=== PATIENT | female | born 1940 | race Caucasian/White ===

== ENCOUNTER 2024-12-24 17:35 | Outpatient (CLI) | payer MEDICARE, BC, SELFPAY | END 2024-12-24 17:36 | disposition home or self-care (01) | LOC: AMB 01-21 11:52 | PROVIDERS: PCP Family Medicine; Visit Provider Family Medicine | DX: R06.09 Other forms of dyspnea (principal) | CPT/HCPCS: A0425; A0427 ==

== ENCOUNTER 2024-12-24 18:07 | Inpatient (IN) | payer MEDICARE, BC, SELFPAY ==
[2024-12-24] VITALS (14 sets, daily range): BP systolic 123–170; BP diastolic 65–79; PULSE 60–79; RESP 21–27; TEMP 37.2; O2SAT 85–94; BMI 33.9; BMI 41.8
[2024-12-24 19:04] LABS: PCR FLU A Negative PCR FLU A (Negative); PCR FLU B Negative PCR FLU B (Negative); PCR RSV Negative PCR RSV (Negative); SARS PCR* Negative SARS-CoV-2 (Negative)
[2024-12-24 19:10] LABS: Basophils Percent Auto 0.2 % (0.0-3.0); Eosinophils Percent Auto 0.2 % (0.0-7.0); Hematocrit 41.9 % (33.0-51.0); Hemoglobin* 13.5 gm/dL (12.0-16.0); Immature Granulocytes Pct Auto 0.2 %; Lymphocytes Percent Auto 9.2 % (20-44); Mean Corpuscular HGB Conc 32 gm/dL (32-36); Mean Corpuscular Hemoglobin 31 pg (26-34); Mean Corpuscular Volume 95 fL (80-100); Monocytes Percent Auto 7.2 % (0.0-11.0); Platelet Count* 190 K/uL (140-440); Red Blood Count 4.39 m/uL (4.00-5.20); White Blood Count* 12.22 K/uL (4.50-11.00)
[2024-12-24 19:11] LABS: Slide Review Reflex No
--- NOTE | 2024-12-24 19:19 | ED_ITS ---
HPI - SOB/Dyspnea General Date Seen: 12/24/24 Chief Complaint: Shortness of Breath/Dyspnea Stated Complaint: COPD exacerbation Time Seen by Provider: 12/24/24 18:10 Source: patient, family and EMS Mode of arrival: EMS Limitations: no limitations History of Present Illness HPI Narrative: Patient is an 84-year-old female presenting from [facility] for shortness of breath and weakness. Patient has been having increased shortness of breath and weakness starting this morning. Her family states they visit her yesterday and noticed she seemed more short of breath at that time too. Symptoms were not improving so EMS was called. EMS states when they arrive she was satting in the 80s on room air. Her family states in the past she used oxygen at home but has not needed now for almost a year. She does have it p.r.n. patient does states she feels overall weak and crappy. Denies any fevers or chills. Has not noticed any abdominal pain. No history of blood clots that she is aware of. Does have history of heart failure. Has not noticed any lower extremity swelling. She does have some erythema in her lower legs that her family states is chronic and does not appear any different than normal. Has not noticed any dysuria, chest pain. EMS states she is very wheezy for them and they did give her breathing treatments. She is not feel like they help. Family states she was hospitalized 1 month ago for a viral infection and after that had to be moved from her home to the intermediate. No other concerns noted Related Data Home Medications ?Medication ?Instructions ?Recorded ?Confirmed Unobtainable 12/24/24 12/24/24 Allergies Allergy/AdvReac Type Severity Reaction Status Date / Time No Known Drug Allergies Allergy Verified 12/24/24 20:24 Review of Systems Status of ROS: Reports: 10 or more systems reviewed and unremarkable except as noted in History and below [facility] Social History Smoking Status: Former smoker How often do you have a drink containing alcohol: never How often do you have six or more drinks on one occasion: Never AUDIT-C Alcohol total score: 0 Non-prescribed substance use: denies use Exam Narrative: Exam Narrative: Const: Well-nourished, Well-developed, in mild distress Eyes: PERRL, no conjunctival injection, and symmetrical lids HENT: Atraumatic external nose and ears. Moist mucous membranes. Neck: Symmetric, trachea midline, No thyromegaly. CVS: RRR, No murmurs or gallops. Peripheral pulses 2+ and equal in all extremities RESP: Unlabored respiratory effort. Clear to auscultation bilaterally. GI: Nontender/Nondistended, No rebound or guarding. MSK:Extremities w/o deformity, Normal Active ROM Skin: Warm, Dry. Erythema to bilateral lower legs just proximal to the ankles with warmth, worse on the left Neuro: Normal Muscle tone, No focal neurological deficits. Psych: Awake, Alert, & Oriented x3. Appropriate mood and affect. Const: Vital Signs, click to edit/add: Vital Signs - 24 hr 12/24/24 18:10 12/24/24 18:19 12/24/24 19:20 Temperature 98.9 F Pulse Rate 60 Pulse Rate [Pulse Oximeter] 73 Respiratory Rate 24 26 H Blood Pressure 135/79 Blood Pressure [Ri ght Upper Arm] 123/73 Pulse Oximetry 85 L 91 94 Oxygen Delivery Me thod Room Air Nasal Cannula Nasal Cannula Oxygen Flow Rate 2 2 12/24/24 20:11 Temperature Pulse Rate 60 Pulse Rate [Pulse Oximeter] Respiratory Rate 24 Blood Pressure 149/65 H Blood Pressure [Ri ght Upper Arm] Pulse Oximetry 91 Oxygen Delivery Me thod Nasal Cannula Oxygen Flow Rate 1 Course Vital Signs Vital signs: Initial Vital Signs Temperature 98.9 F 12/24/24 18:10 Temperature Source Oral 12/24/24 18:10 Pulse Rate 73 12/24/24 18:10 Respiratory Rate 24 12/24/24 18:10 Blood Pressure 123/73 12/24/24 18:10 Blood Pressure Mean 89 12/24/24 18:10 Pulse Oximetry 85 L 12/24/24 18:10 Oxygen Delivery Method Room Air 12/24/24 18:10 Vital Signs Temperature 98.9 F 12/24/24 18:10 Pulse Rate 73 12/24/24 18:10 Respiratory Rate 24 12/24/24 18:10 Blood Pressure 123/73 12/24/24 18:10 Pulse Oximetry 85 L 12/24/24 18:10 Oxygen Delivery Method Room Air 12/24/24 18:10 Temperature 98.9 F 12/24/24 18:10 Pulse Rate 60 12/24/24 20:11 Respiratory Rate 24 12/24/24 20:11 Blood Pressure 149/65 H 12/24/24 20:11 Pulse Oximetry 91 12/24/24 20:11 Oxygen Delivery Method Nasal Cannula 12/24/24 20:11 Oxygen Flow Rate 1 12/24/24 20:11 MDM - SOB/Dyspnea MDM Narrative Medical decision making narrative: Patient is an 84-year-old female presenting for shortness of breath and weakness. The differential diagnosis of shortness of breath is broad and includes common etiologies such as COPD, asthma, pneumonia, viral syndrome, etc. More serious etiologies considered include PE, CHF, coronary artery disease, pneumothorax, aortic dissection, aortic aneurysm. I do not hear any wheezing on my exam at this time. She is satting 90-96% on 2 L nasal cannula. Do not believe further breathing treatments will be beneficial at this time. Will do a D-dimer to look for signs of PE. Will order BNP for possible CHF exacerbation. EKG and troponin order to look for signs of coronary artery disease. At this time I have low concern for aortic dissection or aortic aneurysm. Imaging will also look for signs of pneumonia or pneumothorax. For her weakness I will look for signs of infection, electrolyte abnormalities. CBC, CMP, magnesium, urinalysis all ordered. Lab work shows a very slightly elevated white count at 12.22. She does not meet SIRS criteria. She has an elevated D-dimer and a CTA was ordered. Troponin within normal limits. BNP is 5760. I see no other clinical signs of CHF exacerbation. EKG shows a ventricular paced rhythm. Urinalysis shows no signs of a UTI. Viral swabs are negative. CTA returned showing her known breast cancer with possible pulmonary metastasis in the left lower low. He off oxygen she was satting 88% on room air which for COPD patients can be normal. She is satting 91% on 1 L. I did not speak to her and her family about admission for under observation versus discharge. I explained that we do not see any clear causes of her weakness and might be a viral issue. Are likely management in the hospital when not be much different than what she would have done at her intermediate. They would like her to stay at least overnight. Hospitalist will accept. Lab Data Labs: Lab Results 02/24/25 02/24/25 02/24/25 Range/Units 18:13 19:00 20:24 WBC 12.22 H (4.50-11.00) K/uL RBC 4.39 (4.00-5.20) m/uL Hgb 13.5 (12.0-16.0) gm/dL Hct 41.9 (33.0-51.0) % MCV 95 (80-100) fL MCH 31 (26-34) pg MCHC 32 (32-36) gm/dL RDW Coeff of Jarrett 16.0 H (11.5-15.5) % Plt Count 190 (140-440) K/uL Neut % (Auto) 83.0 H (42.0-72.0) % Lymph % (Auto) 9.2 L (20-44) % [place] % (Auto) 7.2 (0.0-11.0) % Eos % (Auto) 0.2 (0.0-7.0) % Baso % (Auto) 0.2 (0.0-3.0) % Neut # (Auto) 10.10 H (1.7-7.0) K/uL Lymph # (Auto) 1.10 (0.90-2.90) K/uL [place] # (Auto) 0.90 (0.00-0.90) K/UL Eos # (Auto) 0.00 (0.00-0.50) K/uL Baso # (Auto) 0.00 (0.00-0.30) K/uL Abs Immat Gran (auto) 0.00 (0.00-0.30) K/uL Imm/Tot Granulo (auto) 0.2 % D-Dimer Quant (PE/DVT) 0.96 H (0.00-0.50) ug/ml Sodium 140 (135-149) mmol/L Potassium 4.3 (3.6-5.1) mmol/L Chloride 99 (96-114) mmol/L Carbon Dioxide 32 (20-32) mmol/L Anion Gap 9 (7-15) mEq/L BUN 24 (7-30) mg/dL Creatinine 1.1 (0.5-1.5) mg/dL Estimated Creat Clear 35.00 Estimated GFR 49 ml/min Glucose 164 H (60-115) mg/dL Calcium 9.0 (8.4-10.6) mg/dL Magnesium 2.1 (1.5-2.6) mg/dL Total Bilirubin 1.5 (0.1-1.5) mg/dL AST 35 (12-35) U/L ALT 23 (4-35) U/L Alkaline Phosphatase 78 (40-150) U/L Troponin I 0.02 (0.01-0.04) ng/mL NT-Pro-B Natriuret Pep 5760 pg/mL Total Protein 6.9 (6.0-8.3) g/dL Albumin 4.0 (3.3-5.0) g/dL Urine Color Yellow (Yellow) Urine Appearance Clear (Clear) Urine pH 6.0 (5.0-8.5) Ur Specific [place] 1.010 (1.000-1.030) Urine Protein Negative (Negative) Urine Glucose (UA) Negative (Negative) Urine Ketones Negative (Negative) Urine Blood Negative (Negative) Urine Nitrite Negative (Negative) Urine Bilirubin Negative (Negative) Urine Urobilinogen 0.2 (0.2-1.0) Ur Leukocyte Esterase Trace A (Negative) Urine RBC 2-5 A (0-2) Urine WBC 2-5 (0-5) Ur Squamous Epith Cells Few (None-Few) Urine Bacteria Few A (None) SARS-CoV-2 (PCR) Negative SARS-CoV-2 (Negative) Influenza Type A (PCR) Negative PCR FLU A (Negative) Influenza Type B (PCR) Negative PCR FLU B (Negative) RSV (PCR) Negative PCR RSV (Negative) Imaging Data CTA chest: Attestation: I have reviewed the pertinent imaging results. Radiologist's impression: 1. Motion degrades evaluation of the distal segmental and subsegmental pulmonary arteries. No discrete large central or proximal segmental pulmonary embolus. 2. Left breast mass measuring 48 millimeters. Associated left axillary lymphadenopathy. Constellation of findings are highly concerning for primary breast cancer with associated metastatic disease. 3. 8 millimeter left lower lobe indeterminate pulmonary nodule. Differential considerations include solitary pulmonary metastasis, synchronous primary lung cancer, versus other benign etiologies. Attention on follow up exams per clinical protocol or in 3 months to document stability and to assess underlying malignant potential. Please note that all CT scans at this facility use dose modulation, iterative reconstruction, and/or weight-based dosing when appropriate to reduce radiation dose to as low as reasonably achievable. Dictated by Jacoby Solorzano MD @ 12/24/2024 9:24:21 PM ECG Data Attestation: I personally reviewed and interpreted this ECG as follows: Prior ECG tracings: not available for review Interpretation: ventricular paced rhythm with a rate of 61 beats per minute, normal QRS and QTC, normal axis, no ST or T-wave abnormalities Discharge Plan Discharge Clinical Impression: Weakness Patient Disposition: Admitted As Observation Condition: Stable Prescriptions: No Action Unobtainable Follow Up/Referrals: Johnathan Lopez MD [Primary Care Provider] -
[2024-12-24 19:23] LABS: Chloride* 99 mmol/L (96-114); Potassium* 4.3 mmol/L (3.6-5.1); Sodium* 140 mmol/L (135-149)
[2024-12-24 19:25] LABS: Bilirubin Total* 1.5 mg/dL (0.1-1.5); Creatinine* 1.1 mg/dL (0.5-1.5); Estimated Glomerular Filt Rate 49 ml/min
[2024-12-24 19:26] LABS: Alanine Aminotransferase* 23 U/L (4-35); Alkaline Phosphatase* 78 U/L (40-150); Anion Gap 9 mEq/L (7-15); Aspartate Amino Transferase* 35 U/L (12-35); Blood Urea Nitrogen* 24 mg/dL (7-30); Carbon Dioxide* 32 mmol/L (20-32); Glucose* 164 mg/dL (60-115); Magnesium* 2.1 mg/dL (1.5-2.6); Total Protein* 6.9 g/dL (6.0-8.3)
[2024-12-24 19:30] LABS: D Dimer Quantitative* 0.96 ug/ml (0.00-0.50)
[2024-12-24 19:38] LABS: Troponin I* 0.02 ng/mL (0.01-0.04)
[2024-12-24 19:45] LABS: NT Pro B Type NatriureticPept* 5760 pg/mL
--- NOTE | 2024-12-24 19:55 | CRLHL7_ITS ---
For Patients: As a result of the 21st Century Cures Act, medical imaging exams and procedure reports are released immediately into your electronic medical record. You may view this report before your referring provider. If you have questions, please contact your health care provider. INDICATION: .SOB TECHNIQUE: CT chest PE was acquired with 95 cc Isovue 370 IV contrast. COMPARISON: None FINDINGS: Pulmonary Arteries: Motion degrades evaluation of the distal segmental and subsegmental pulmonary arteries. No discrete large central or proximal segmental pulmonary embolus. No pulmonary hypertension or right ventricular strain. Heart and Mediastinum: Left axillary enlarged lymph nodes measuring up to 18 millimeters. No axillary or supraclavicular lymphadenopathy. No mediastinal, hilar or retrocrural lymphadenopathy. Cardiomegaly. 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 TAVR. Normal caliber aorta. Atherosclerotic calcifications. Coronary artery calcifications. Lungs and Airways: Dependent subsegmental atelectasis. Upper lobe predominant centrilobular emphysema. 8 millimeter left lower lobe indeterminate pulmonary nodule, axial image 77. No central endoluminal lesion. Pleura: The pleural spaces are normal. Abdomen: Tiny epiphrenic diverticulum. Relatively atrophic left kidney where visualized compared to the right. Bones and soft tissues: Left breast mass measuring 48 millimeters. IMPRESSION: 1. Motion degrades evaluation of the distal segmental and subsegmental pulmonary arteries. No discrete large central or proximal segmental pulmonary embolus. 2. Left breast mass measuring 48 millimeters. Associated left axillary lymphadenopathy. Constellation of findings are highly concerning for primary breast cancer with associated metastatic disease. 3. 8 millimeter left lower lobe indeterminate pulmonary nodule. Differential considerations include solitary pulmonary metastasis, synchronous primary lung cancer, versus other benign etiologies. Attention on follow up exams per clinical protocol or in 3 months to document stability and to assess underlying malignant potential. Please note that all CT scans at this facility use dose modulation, iterative reconstruction, and/or weight-based dosing when appropriate to reduce radiation dose to as low as reasonably achievable. Dictated by Jacoby Solorzano MD @ 12/24/2024 9:24:21 PM (Electronically Signed)
[2024-12-24 20:33] LABS: Appearance Urine Clear (Clear); Bilirubin Urine Negative (Negative); Blood Urine Negative (Negative); Color Urine Yellow (Yellow); Glucose Urine Negative (Negative); Ketones Urine Negative (Negative); Leukocyte Esterase Urine Trace (Negative); Nitrite Urine Negative (Negative); Protein Urine Negative (Negative); Urobilinogen Urine 0.2 (0.2-1.0)
[2024-12-24 21:01] LABS: Bacteria Urine Few; Squamous Epithelial Cell Urine Few (None-Few)
--- NOTE | 2024-12-24 21:47 | PM.IMHP1 ---
Hospitalist- H&P: HPI History of Present Illness Date Seen: 12/24/24 Chief complaint: COPD exacerbation Narrative: Sofi Martinez is a 84 year old female resident of [address] [place] [address] admitted through the emergency department with weakness, nausea, loss of appetite, dyspnea. These are all chronic symptoms for her but have been much worse in the last 1-2 days. She was hospitalized in [place] 1 month ago with similar symptoms although that time she appeared to have a viral gastroenteritis as well. She reports she was generally doing well until yesterday when she started having worsening nausea and anorexia and today where she was quite short of breath and quite weak. She has not had cold or cough symptoms. No chest pain or abdominal pain. No vomiting. No diarrhea or urinary symptoms. She is not aware of any fever. Prior to her hospitalization in October she was living independently at home but there were concerns about her ability to care for herself and she subsequently has been at [address] [place] [address]. [facility] Medical History (Updated 12/24/24 @ 22:15 by Carlitos Kent MD) Cognitive impairment ?R41.89 - Other symptoms and signs involving cognitive functions and awareness (ICD-10) Pancreatic cyst ?K86.2 - Cyst of pancreas (ICD-10) Lung nodule ?R91.1 - Solitary pulmonary nodule (ICD-10) Elevated liver transaminase level ?R74.01 - Elevation of levels of liver transaminase levels (ICD-10) Rhabdomyolysis ?M62.82 - Rhabdomyolysis (ICD-10) Breast cancer ?C50.919 - Malignant neoplasm of unspecified site of unspecified female breast (ICD-10) Obesity ?E66.9 - Obesity, unspecified (ICD-10) Heart failure with preserved ejection fraction ?I50.30 - Unspecified diastolic (congestive) heart failure (ICD-10) History of cardiac pacemaker ?Z95.0 - Presence of cardiac pacemaker (ICD-10) Sleep apnea ?G47.30 - Sleep apnea, unspecified (ICD-10) Paroxysmal atrial fibrillation ?I48.0 - Paroxysmal atrial fibrillation (ICD-10) Chronic anticoagulation ?Z79.01 - lobsterman (current) use of anticoagulants (ICD-10) Hypertension ?I10 - Essential (primary) hypertension (ICD-10) Stage 3 chronic kidney disease ?N18.30 - Chronic kidney disease, stage 3 unspecified (ICD-10) COPD exacerbation ?J44.1 - Chronic obstructive pulmonary disease with (acute) exacerbation (ICD-10) Surgical History (Updated 12/24/24 @ 21:55 by Carlitos Kent MD) S/p total knee replacement, bilateral ?Z96.653 - Presence of artificial knee joint, bilateral (ICD-10) S/P oophorectomy History of aortic valve replacement with bioprosthetic valve ?Z95.3 - Presence of xenogenic heart valve (ICD-10) Social History (Updated 12/24/24 @ 22:09 by Carlitos Kent MD) Narrative: Until last month she was living independently at home. Then hospitalized with weakness and multiple other medical problems. Now at [address] [place] [address]. She is present here with her son, Kenneth, and [id number]. Kenneth is healthcare power of deputy attorney general. Code status is DNR. Former smoker having quit about 40 years ago. Previously drank alcohol regularly but not currently drinking Smoking Status: Former smoker How often do you have a drink containing alcohol: never How often do you have six or more drinks on one occasion: Never AUDIT-C Alcohol total score: 0 Non-prescribed substance use: denies use Meds Home Medications and Allergies Home Medications ?Medication ?Instructions ?Recorded ?Confirmed ?Type Unobtainable 12/24/24 12/24/24 History Allergies Allergy/AdvReac Type Severity Reaction Status Date / Time No Known Drug Allergies Allergy Verified 12/24/24 20:24 Exam Narrative: Exam Narrative: She is alert and appears mildly dyspneic at rest with oxygen. She gives her own history although is quite forgetful, unable to remember much detail about the events of the last 2 days or her hospitalization from 1 month ago. Speech is fluent. Head is without trauma. Eyes are normal. Extraocular movements are full. Oropharynx with small airway. Neck is supple without mass or adenopathy. Respirations: No significant rales rhonchi or wheezing. She has moderately diminished breath sounds and moderately prolonged expiratory phase. Cardiovascular: S1, S2, regular rate and rhythm. Abdomen: Bowel sounds are active. Abdomen is soft without tenderness or mass. She has mild intertriginous erythema in the groin area. She moves all 4 extremities well. She has diminished pedal pulses. She has moderate chronic venous skin changes on her legs without erythema or ulcerations. Const: Vital Signs, click to edit/add: Vital Signs - 24 hr 12/24/24 18:10 12/24/24 18:19 12/24/24 19:20 Temperature 98.9 F Pulse Rate 60 Pulse Rate [Pulse Oximeter] 73 Respiratory Rate 24 26 H Blood Pressure 135/79 Blood Pressure [Ri ght Upper Arm] 123/73 Pulse Oximetry 85 L 91 94 Oxygen Delivery Me thod Room Air Nasal Cannula Nasal Cannula Oxygen Flow Rate 2 2 12/24/24 20:11 Temperature Pulse Rate 60 Pulse Rate [Pulse Oximeter] Respiratory Rate 24 Blood Pressure 149/65 H Blood Pressure [Ri ght Upper Arm] Pulse Oximetry 91 Oxygen Delivery Me thod Nasal Cannula Oxygen Flow Rate 1 Documenting provider has reviewed patient's vital signs: yes Hospitalist - H&P: Result Labs Labs: Short CBC 12/24/24 Range/Units 19:00 WBC 12.22 H (4.50-11.00) K/uL Hgb 13.5 (12.0-16.0) gm/dL Hct 41.9 (33.0-51.0) % Plt Count 190 (140-440) K/uL BMP 12/24/24 19:00 Sodium 140 Potassium 4.3 Chloride 99 Carbon Dioxide 32 BUN 24 Creatinine 1.1 Glucose 164 H Calcium 9.0 Cardiac Enzymes 12/24/24 Range/Units 19:00 Troponin I 0.02 (0.01-0.04) ng/mL Liver Function 12/24/24 Range/Units 19:00 Total Bilirubin 1.5 (0.1-1.5) mg/dL AST 35 (12-35) U/L ALT 23 (4-35) U/L Alkaline Phosphatase 78 (40-150) U/L Albumin 4.0 (3.3-5.0) g/dL Urine 12/24/24 Range/Units 20:24 Urine Color Yellow (Yellow) Urine Appearance Clear (Clear) Urine pH 6.0 (5.0-8.5) Ur Specific [place] 1.010 (1.000-1.030) Urine Protein Negative (Negative) Urine Glucose (UA) Negative (Negative) Imaging CT scan - chest: Radiologist's impression: INDICATION: .SOB TECHNIQUE: CT chest PE was acquired with 95 cc Isovue 370 IV contrast. COMPARISON: None FINDINGS: Pulmonary Arteries: Motion degrades evaluation of the distal segmental and subsegmental pulmonary arteries. No discrete large central or proximal segmental pulmonary embolus. No pulmonary hypertension or right ventricular strain. Heart and Mediastinum: Left axillary enlarged lymph nodes measuring up to 18 millimeters. No axillary or supraclavicular lymphadenopathy. No mediastinal, hilar or retrocrural lymphadenopathy. Cardiomegaly. 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 TAVR. Normal caliber aorta. Atherosclerotic calcifications. Coronary artery calcifications. Lungs and Airways: Dependent subsegmental atelectasis. Upper lobe predominant centrilobular emphysema. 8 millimeter left lower lobe indeterminate pulmonary nodule, axial image 77. No central endoluminal lesion. Pleura: The pleural spaces are normal. Abdomen: Tiny epiphrenic diverticulum. Relatively atrophic left kidney where visualized compared to the right. Bones and soft tissues: Left breast mass measuring 48 millimeters. IMPRESSION: 1. Motion degrades evaluation of the distal segmental and subsegmental pulmonary arteries. No discrete large central or proximal segmental pulmonary embolus. 2. Left breast mass measuring 48 millimeters. Associated left axillary lymphadenopathy. Constellation of findings are highly concerning for primary breast cancer with associated metastatic disease. 3. 8 millimeter left lower lobe indeterminate pulmonary nodule. Differential considerations include solitary pulmonary metastasis, synchronous primary lung cancer, versus other benign etiologies. Attention on follow up exams per clinical protocol or in 3 months to document stability and to assess underlying malignant potential. Assessment and Plan Assessment and plan (1) COPD exacerbation: Problem comment: COPD exacerbation is the most likely cause of her acute dyspnea, hypoxia and weakness. No obvious triggering infection. Status: Acute (2) Weakness: Problem comment: This appears to be acute on chronic. Multiple chronic medical problems likely contributing. Acute change may be related to COPD exacerbation. Other contributors include heart failure, obesity, deconditioning, possible breast cancer. Status: Acute (3) Hypoxia: Problem comment: Has been on oxygen in the past but not recently. Status: Acute (4) Nausea: Problem comment: Acute on chronic. Abdominal CT scan from 1 month ago in [place] is nondiagnostic. Status: Acute (5) Anorexia: Problem comment: Probably acute on chronic loss of appetite. Cause for this is uncertain. Unremarkable CT abdomen scan 1 month ago. Status: Acute (6) Breast cancer: Problem comment: Left breast mass diagnosed as breast cancer in October 2024. Patient has declined further evaluation or treatment. Likely metastatic to lymph nodes in the left axilla. Status: Acute (7) Elevated liver transaminase level: Problem comment: Present during her hospital admission 1 month ago. Cause is uncertain. Abdominal ultrasound was unremarkable. Abdominal CT was unremarkable. Status: Acute (8) Lung nodule: Problem comment: 8 mm left lower lobe indeterminate nodule. Radiologist recommends follow-up in 3 months. This is not consistent with patient's goals of care having already declined any evaluation or treatment for known breast cancer Status: Acute (9) Pancreatic cyst: Problem comment: 1.5 cm pancreatic cyst near head of pancreas seen on CT scan from October 2024. Suspicious for IPMN Status: Acute (10) Cognitive impairment: Problem comment: Patient has significant difficulty remembering recent events including hospitalization 1 month ago and even the events of yesterday and today. Status: Acute (11) Heart failure with preserved ejection fraction: Problem comment: Echocardiogram from January 2024: Final Impressions: 1. Echo contrast was administered to enhance visualization of all left ventricular segments. 2. Normal left ventricular size, mildly increased wall thickness, normal global systolic function, calculated EF of 61 %. 3. Basal inferior segment and basal septum segment are abnormal. 4. Grade 2 pattern of LV diastolic filling. 5. Right ventricular cavity size is normal, global systolic RV function is mildly reduced. 6. Mildly enlarged left atrium. 7. 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 8. The mitral valve is normal, mild to moderate mitral regurgitation. 9. Moderate tricuspid regurgitation with an estimated RVSP of 38 mmHg + the RA pressure. 10. IVC geometry compatible with an elevated estimated RA pressure (15 mmHg). Status: Acute (12) Sleep apnea: Problem comment: On home CPAP Status: Acute (13) Paroxysmal atrial fibrillation: Status: Acute (14) Chronic anticoagulation: Problem comment: Warfarin Status: Acute (15) Hypertension: Status: Acute (16) Stage 3 chronic kidney disease: Status: Acute Assessment and Plan: 84-year-old female admitted to the hospital with acute on chronic dyspnea, weakness, loss of appetite, nausea. Cause for this is likely multifactorial. I favor COPD exacerbation as the primary issue. Patient is admitted for ongoing evaluation management of her multiple symptoms, also needs ongoing conversation about goals of care and possibly transitioning to palliative care in light of her comorbidities and her limited care plan. Plan Total time spent today is 90 minutes in coordination of care, reviewing outside records, discussion with patient, son, other providers ongoing evaluation management of these multiple issues outlined above
[2024-12-24 22:08] LABS: INR 1.88 (0.91-1.10); Prothrombin Time 22.7 Seconds
[2024-12-24 22:09] LABS: Bilirubin Direct* 0.5 mg/dL (0.0-0.5)
[2024-12-24 22:12] LABS: Lipase* 53 U/L (23-300)
[2024-12-24] MEDS: TORSEMIDE 20 MG TABLET 40 MG PO (23:27)
[2024-12-24] MEDS: carvediloL 6.25 MG TABLET 12.5 MG PO (23:27)
[2024-12-24] MEDS: predniSONE 20 MG TABLET 60 MG PO (23:27)
[2024-12-25] VITALS (7 sets, daily range): BP systolic 124–154; BP diastolic 58–96; PULSE 60–66; RESP 18–20; TEMP 36.4–36.9; O2SAT 90–92
--- NOTE | 2024-12-25 03:58 | PC.NURSE ---
Pt arrived to the floor at 2158. Alert, oriented, vitally stable though hypertensive. Pt is hard of hearing; has bilateral hearing aid though states they aren't working and needs occasional restating. Pt on 1L stating around high 80s - low 90s. Pt dipped while sleeping to low 80s, turned up to 2L o2. Pt in bed, appears to be resting, call light within reach.?
[2024-12-25] MEDS: predniSONE 20 MG TABLET 40 MG PO (08:36)
[2024-12-25] MEDS: ACETAMINOPHEN 500 MG TABLET 1000 MG PO ×2 (08:39→21:46)
[2024-12-25] MEDS: ASPIRIN 81 MG TABLET EC PO (08:39)
[2024-12-25] MEDS: allopurinoL 100 MG TABLET PO (08:40)
[2024-12-25] MEDS: POTASSIUM CHLORIDE 10 MEQ CAPSULE ER 20 MEQ PO ×2 (08:40→21:45)
[2024-12-25] MEDS: carvediloL 6.25 MG TABLET 12.5 MG PO ×2 (08:49→21:46)
[2024-12-25] MEDS: TORSEMIDE 20 MG TABLET 40 MG PO (08:49)
[2024-12-25] MEDS: ENALAPRIL MALEATE 10 MG TABLET 20 MG PO ×2 (09:26→21:47)
--- NOTE | 2024-12-25 12:20 | PC.SOCIAL ---
Addendum entered by JULIETA Garrett 12/25/24 16:26: Discharge planning: hold worker clarified that the pt is on a bed hold on the LTC side of the facility. Pt just finished her TCU stay on 12/19/24 and transitioned to long-term care after that. Social work to follow-up as needed. Addendum entered by JULIETA Garrett 12/25/24 16:14: Discharge planning: Pt is on a bed hold at [facility] per Kellie Starch in admissions at [facility]. Social work to follow-up as needed. Original Note: Discharge planning: hold worker is waiting to hear back from the aids social worker at [facility] on whether or not the pt is on a bed hold there. Social work to follow-up as needed.
[2024-12-25] MEDS: FUROSEMIDE 10 MG/ML inj 80 MG IVP (13:54)
--- NOTE | 2024-12-25 15:02 | PC.NURSE ---
End of shift [id number]: Pt oriented to self, , month, year. Intermittent confusion throughout the day. Pleasant and cooperative to cares. Continent of the bladder. A1 GB W. Tolerating reg diet/fluids well. Pt denies SOB at rest. Becomes tachypneic with sats in the low 80s during activity. Pt sats around 90 on 1-2 L dependent on resting or up in chair. [place]. Pt appears resting with call light in reach.
--- NOTE | 2024-12-25 17:06 | PM.IMPN1 ---
Progress Note: A&P Assessment and plan (1) COPD exacerbation: Problem details: -COPD exacerbation is the most likely cause of her acute dyspnea, hypoxia and weakness. No obvious triggering infection. -also has element of heart failure Status: Acute (2) Weakness: Problem details: -This appears to be acute on chronic. Multiple chronic medical problems likely contributing. Acute change may be related to COPD exacerbation. Other contributors include heart failure, obesity, deconditioning, possible breast cancer. Status: Acute (3) Hypoxia: Problem details: -Has been on oxygen in the past but not recently. -likely multifactorial from COPD, pulmonary hypertension, diastolic heart failure Status: Acute (4) Nausea: Problem details: -Acute on chronic. Abdominal CT scan from 1 month ago in [place] is nondiagnostic. Status: Acute (5) Anorexia: Problem details: -Probably acute on chronic loss of appetite. Cause for this is uncertain. Unremarkable CT abdomen scan 1 month ago. Status: Acute (6) Breast cancer: Problem details: -Left breast mass diagnosed as breast cancer in October 2024. Patient has declined further evaluation or treatment. Likely metastatic to lymph nodes in the left axilla. Status: Acute (7) Elevated liver transaminase level: Problem details: -Present during her hospital admission 1 month ago. Cause is uncertain. Abdominal ultrasound was unremarkable. Abdominal CT was unremarkable. Status: Acute (8) Lung nodule: Problem details: -8 mm left lower lobe indeterminate nodule. Radiologist recommends follow-up in 3 months. This is not consistent with patient's goals of care having already declined any evaluation or treatment for known breast cancer Status: Acute (9) Pancreatic cyst: Problem details: -1.5 cm pancreatic cyst near head of pancreas seen on CT scan from October 2024. Suspicious for IPMN Status: Acute (10) Cognitive impairment: Problem details: -Patient has significant difficulty remembering recent events including hospitalization 1 month ago and even the events of yesterday and today. Status: Acute (11) Heart failure with preserved ejection fraction: Problem details: -Echocardiogram from January 2024: Final Impressions: 1. Echo contrast was administered to enhance visualization of all left ventricular segments. 2. Normal left ventricular size, mildly increased wall thickness, normal global systolic function, calculated EF of 61 %. 3. Basal inferior segment and basal septum segment are abnormal. 4. Grade 2 pattern of LV diastolic filling. 5. Right ventricular cavity size is normal, global systolic RV function is mildly reduced. 6. Mildly enlarged left atrium. 7. 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 8. The mitral valve is normal, mild to moderate mitral regurgitation. 9. Moderate tricuspid regurgitation with an estimated RVSP of 38 mmHg + the RA pressure. 10. IVC geometry compatible with an elevated estimated RA pressure (15 mmHg). -has acute on chronic heart failure at this time, at minimum due to diastolic heart failure, possibly related to pulmonary hypertension as well which is noted in the last echocardiogram as specified above -acute diuresis and monitor Status: Acute (12) Sleep apnea: Problem details: -On home CPAP -continue with efforts Status: Acute (13) Paroxysmal atrial fibrillation: Status: Acute (14) Chronic anticoagulation: Problem details: Warfarin Status: Acute (15) Hypertension: Problem details: -underlying diastolic heart heart failure likely attributable to hypertensive cardiomyopathy Status: Acute (16) Stage 3 chronic kidney disease: Status: Acute Plan 1. Continue with COPD treatment 2. Intensify heart failure treatment 3. Discussed with patient and her son, Kenneth, who are agreeable Time Spent With Patient Total time spent: 45 minutes Subjective Date Seen: 12/25/24 Interval history: Admission history of present illness: ?84 year old female resident of [address] [place] [address] admitted through the emergency department with weakness, nausea, loss of appetite, dyspnea. These are all chronic symptoms for her but have been much worse in the last 1-2 days. She was hospitalized in [place] 1 month ago with similar symptoms although that time she appeared to have a viral gastroenteritis as well. She reports she was generally doing well until yesterday when she started having worsening nausea and anorexia and today where she was quite short of breath and quite weak. She has not had cold or cough symptoms. No chest pain or abdominal pain. No vomiting. No diarrhea or urinary symptoms. She is not aware of any fever. Prior to her hospitalization in October she was living independently at home but there were concerns about her ability to care for herself and she subsequently has been at [address] [place] [address].? Breathing improved. Denies any more wheezing. Still requiring oxygen supplementation. Denies chest heaviness, pressure, tightness, or pain. Still very sleepy. Exam Narrative: Exam Narrative: Examined patient in her hospital room. Sleepy but easily arousable. Head of bed elevated at 30? with JVD and hepatojugular reflux. Lungs with bibasilar rales, no wheezing or rhonchi. Heart tones with regular rhythm. Abdomen benign. Bilateral lower extremity edema. Const: Vital Signs, click to edit/add: Vital Signs - 24 hr 12/24/24 18:10 12/24/24 18:19 12/24/24 19:20 Temperature 98.9 F Pulse Rate 60 Pulse Rate [Pulse Oximeter] 73 Respiratory Rate 24 26 H Blood Pressure 135/79 Blood Pressure [Le ft Arm] Blood Pressure [Ri ght Upper Arm] 123/73 Pulse Oximetry 85 L 91 94 Oxygen Delivery Me thod Room Air Nasal Cannula Nasal Cannula Oxygen Flow Rate 2 2 12/24/24 20:08 12/24/24 20:11 12/24/24 20:11 Temperature Pulse Rate 60 Pulse Rate [Pulse Oximeter] Respiratory Rate 27 H 24 Blood Pressure 149/65 H 149/65 H Blood Pressure [Le ft Arm] Blood Pressure [Ri ght Upper Arm] Pulse Oximetry 91 Oxygen Delivery Me thod Nasal Cannula Oxygen Flow Rate 1 12/24/24 20:15 12/24/24 20:44 12/24/24 20:45 Temperature Pulse Rate 60 79 70 Pulse Rate [Pulse Oximeter] Respiratory Rate 21 Blood Pressure Blood Pressure [Le ft Arm] Blood Pressure [Ri ght Upper Arm] Pulse Oximetry 93 92 Oxygen Delivery Me thod Oxygen Flow Rate 12/24/24 21:00 12/24/24 21:15 12/24/24 21:30 Temperature Pulse Rate 60 60 63 Pulse Rate [Pulse Oximeter] Respiratory Rate Blood Pressure Blood Pressure [Le ft Arm] Blood Pressure [Ri ght Upper Arm] Pulse Oximetry 93 88 91 Oxygen Delivery Me thod Oxygen Flow Rate 12/24/24 21:45 12/24/24 21:59 12/24/24 21:59 Temperature 98.9 F Pulse Rate 61 Pulse Rate [Pulse Oximeter] 72 Respiratory Rate 21 21 Blood Pressure Blood Pressure [Le ft Arm] 170/69 H Blood Pressure [Ri ght Upper Arm] Pulse Oximetry 90 93 93 Oxygen Delivery Me thod Nasal Cannula Nasal Cannula Oxygen Flow Rate 1 1 12/24/24 23:00 12/24/24 23:00 12/25/24 03:00 Temperature 98.5 F Pulse Rate 64 Pulse Rate [Pulse Oximeter] 72 66 Respiratory Rate 21 18 Blood Pressure Blood Pressure [Le ft Arm] 124/58 L Blood Pressure [Ri ght Upper Arm] Pulse Oximetry 91 Oxygen Delivery Me thod Nasal Cannula Oxygen Flow Rate 1 12/25/24 06:20 12/25/24 07:00 12/25/24 07:00 Temperature 97.8 F Pulse Rate 60 Pulse Rate [Pulse Oximeter] 61 Respiratory Rate 20 20 Blood Pressure Blood Pressure [Le ft Arm] 135/74 Blood Pressure [Ri ght Upper Arm] Pulse Oximetry 90 90 Oxygen Delivery Me thod Nasal Cannula Nasal Cannula Oxygen Flow Rate 2 2 12/25/24 08:50 12/25/24 11:00 12/25/24 15:00 Temperature 97.6 F Pulse Rate Pulse Rate [Pulse Oximeter] 60 Respiratory Rate 20 Blood Pressure Blood Pressure [Le ft Arm] 129/77 131/96 H Blood Pressure [Ri ght Upper Arm] Pulse Oximetry 90 91 Oxygen Delivery Me thod Nasal Cannula Nasal Cannula Oxygen Flow Rate 1 2 12/25/24 15:00 12/25/24 15:00 Temperature 97.6 F Pulse Rate 60 Pulse Rate [Pulse Oximeter] 60 Respiratory Rate 18 Blood Pressure Blood Pressure [Le ft Arm] 134/64 Blood Pressure [Ri ght Upper Arm] Pulse Oximetry 91 Oxygen Delivery Me thod Nasal Cannula Oxygen Flow Rate 2 Labs Labs: Laboratory Results - last 24 hr 12/24/24 12/24/24 12/24/24 18:13 19:00 20:24 WBC 12.22 H RBC 4.39 Hgb 13.5 Hct 41.9 MCV 95 MCH 31 MCHC 32 RDW Coeff of Jarrett 16.0 H Plt Count 190 Neut % (Auto) 83.0 H Lymph % (Auto) 9.2 L [place] % (Auto) 7.2 Eos % (Auto) 0.2 Baso % (Auto) 0.2 Neut # (Auto) 10.10 H Lymph # (Auto) 1.10 [place] # (Auto) 0.90 Eos # (Auto) 0.00 Baso # (Auto) 0.00 Abs Immat Gran (auto) 0.00 Imm/Tot Granulo (auto) 0.2 INR 1.88 H D-Dimer Quant (PE/DVT) 0.96 H Sodium 140 Potassium 4.3 Chloride 99 Carbon Dioxide 32 Anion Gap 9 BUN 24 Creatinine 1.1 Estimated Creat Clear 35.00 Estimated GFR 49 Glucose 164 H Calcium 9.0 Magnesium 2.1 Total Bilirubin 1.5 Direct Bilirubin 0.5 AST 35 ALT 23 Alkaline Phosphatase 78 Troponin I 0.02 NT-Pro-B Natriuret Pep 5760 Total Protein 6.9 Albumin 4.0 Lipase 53 TSH 2.160 Urine Color Yellow Urine Appearance Clear Urine pH 6.0 Ur Specific [place] 1.010 Urine Protein Negative Urine Glucose (UA) Negative Urine Ketones Negative Urine Blood Negative Urine Nitrite Negative Urine Bilirubin Negative Urine Urobilinogen 0.2 Ur Leukocyte Esterase Trace A Urine RBC 2-5 A Urine WBC 2-5 Ur Squamous Epith Cells Few Urine Bacteria Few A SARS-CoV-2 (PCR) Negative SARS-CoV-2 Influenza Type A (PCR) Negative PCR FLU A Influenza Type B (PCR) Negative PCR FLU B RSV (PCR) Negative PCR RSV Lab Acknowledgement 12/24/24 12/24/24 12/24/24 21:49 21:53 22:04 WBC RBC Hgb Hct MCV MCH MCHC RDW Coeff of Jarrett Plt Count Neut % (Auto) Lymph % (Auto) [place] % (Auto) Eos % (Auto) Baso % (Auto) Neut # (Auto) Lymph # (Auto) [place] # (Auto) Eos # (Auto) Baso # (Auto) Abs Immat Gran (auto) Imm/Tot Granulo (auto) INR D-Dimer Quant (PE/DVT) Sodium Potassium Chloride Carbon Dioxide Anion Gap BUN Creatinine Estimated Creat Clear Estimated GFR Glucose Calcium Magnesium Total Bilirubin Direct Bilirubin AST ALT Alkaline Phosphatase Troponin I NT-Pro-B Natriuret Pep Total Protein Albumin Lipase TSH Urine Color Urine Appearance Urine pH Ur Specific [place] Urine Protein Urine Glucose (UA) Urine Ketones Urine Blood Urine Nitrite Urine Bilirubin Urine Urobilinogen Ur Leukocyte Esterase Urine RBC Urine WBC Ur Squamous Epith Cells Urine Bacteria SARS-CoV-2 (PCR) Influenza Type A (PCR) Influenza Type B (PCR) RSV (PCR) Lab Acknowledgement Test Added Test Added Test Added Imaging CT scan - chest: Radiologist's impression: IMPRESSION: 1. Motion degrades evaluation of the distal segmental and subsegmental pulmonary arteries. No discrete large central or proximal segmental pulmonary embolus. 2. Left breast mass measuring 48 millimeters. Associated left axillary lymphadenopathy. Constellation of findings are highly concerning for primary breast cancer with associated metastatic disease. 3. 8 millimeter left lower lobe indeterminate pulmonary nodule. Differential considerations include solitary pulmonary metastasis, synchronous primary lung cancer, versus other benign etiologies. Attention on follow up exams per clinical protocol or in 3 months to document stability and to assess underlying malignant potential. ECG Attestation: I personally reviewed and interpreted this ECG as follows: Prior ECG tracings: not available for review Interpretation: Ventricular paced rhythm
[2024-12-25] MEDS: ATORVASTATIN CALCIUM 40 MG TABLET PO (18:12)
--- NOTE | 2024-12-25 23:20 | PC.NURSE ---
Pt alert, oriented with some periods of confusion and vitally stable. Pt moves via 1a walker and gait belt, SOB upon exertion. Pt hard of hearing and needs restating. Pt on 2 L o2 to maintain sats 88-90s. Pt in bed, appears to be resting, call light within reach.
[2024-12-26] VITALS (11 sets, daily range): BP systolic 111–155; BP diastolic 72–98; PULSE 60–86; RESP 18–22; TEMP 36.4–36.9; O2SAT 90–97
--- NOTE | 2024-12-26 06:11 | PC.NURSE ---
End of shift [id number]: Pt A&O pleasant and cooperative. VSS. Pt titrated off O2 around 0300. sats were mid 90s on 1L NC. pt now maintaining sats between 88-92% on RA. intermittent cough noticed without any sputum production. pt tolerated ambulating to the bathroom w/ SBA fww and GB. pt is SOB with activity but recovers quick. denies pain, n/v, dizziness or lightheadedness. using call light appropriately. bed alarm in place.
[2024-12-26] MEDS: ENALAPRIL MALEATE 10 MG TABLET 20 MG PO ×2 (08:31→20:07)
[2024-12-26] MEDS: ACETAMINOPHEN 500 MG TABLET 1000 MG PO ×2 (08:31→20:06)
[2024-12-26] MEDS: POTASSIUM CHLORIDE 10 MEQ CAPSULE ER 20 MEQ PO ×2 (08:31→20:06)
[2024-12-26] MEDS: predniSONE 20 MG TABLET 40 MG PO (08:31)
[2024-12-26] MEDS: carvediloL 6.25 MG TABLET 12.5 MG PO ×2 (08:31→20:07)
[2024-12-26] MEDS: allopurinoL 100 MG TABLET PO (08:31)
[2024-12-26] MEDS: ASPIRIN 81 MG TABLET EC PO (08:31)
[2024-12-26] MEDS: TORSEMIDE 20 MG TABLET 40 MG PO ×2 (08:32→20:07)
--- NOTE | 2024-12-26 15:45 | PM.IMPN1 ---
Progress Note: A&P Assessment and plan (1) COPD exacerbation: Problem details: -COPD exacerbation is the most likely cause of her acute dyspnea, hypoxia and weakness. No obvious triggering infection. Improved substantially as of 12/26/2024 -also has element of heart failure Status: Acute (2) Weakness: Problem details: -This appears to be acute on chronic. Multiple chronic medical problems likely contributing. Acute change may be related to COPD exacerbation. Other contributors include heart failure, obesity, deconditioning, possible breast cancer. -as of 12/26/2024 patient is improving substantially compared to when she 1st presented and is closer to baseline, but appears will benefit from ongoing PT and OT Status: Acute (3) Hypoxia: Problem details: -Has been on oxygen in the past but not recently. -likely multifactorial from COPD, pulmonary hypertension, diastolic heart failure -as of 12/20, no longer requiring oxygen support Status: Acute (4) Nausea: Problem details: -Acute on chronic. Abdominal CT scan from 1 month ago in [place] is nondiagnostic. Status: Acute (5) Anorexia: Problem details: -Probably acute on chronic loss of appetite. Cause for this is uncertain. Unremarkable CT abdomen scan 1 month ago. Status: Acute (6) Breast cancer: Problem details: -Left breast mass diagnosed as breast cancer in October 2024. Patient has declined further evaluation or treatment. Likely metastatic to lymph nodes in the left axilla. Status: Acute (7) Elevated liver transaminase level: Problem details: -Present during her hospital admission 1 month ago. Cause is uncertain. Abdominal ultrasound was unremarkable. Abdominal CT was unremarkable. Status: Acute (8) Lung nodule: Problem details: -8 mm left lower lobe indeterminate nodule. Radiologist recommends follow-up in 3 months. This is not consistent with patient's goals of care having already declined any evaluation or treatment for known breast cancer Status: Acute (9) Pancreatic cyst: Problem details: -1.5 cm pancreatic cyst near head of pancreas seen on CT scan from October 2024. Suspicious for IPMN Status: Acute (10) Cognitive impairment: Problem details: -Patient has significant difficulty remembering recent events including hospitalization 1 month ago and even the events of yesterday and today. Status: Acute (11) Heart failure with preserved ejection fraction: Problem details: -Echocardiogram from January 2024: Final Impressions: 1. Echo contrast was administered to enhance visualization of all left ventricular segments. 2. Normal left ventricular size, mildly increased wall thickness, normal global systolic function, calculated EF of 61 %. 3. Basal inferior segment and basal septum segment are abnormal. 4. Grade 2 pattern of LV diastolic filling. 5. Right ventricular cavity size is normal, global systolic RV function is mildly reduced. 6. Mildly enlarged left atrium. 7. 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 8. The mitral valve is normal, mild to moderate mitral regurgitation. 9. Moderate tricuspid regurgitation with an estimated RVSP of 38 mmHg + the RA pressure. 10. IVC geometry compatible with an elevated estimated RA pressure (15 mmHg). -has acute on chronic heart failure at this time, at minimum due to diastolic heart failure, possibly related to pulmonary hypertension as well which is noted in the last echocardiogram as specified above -acute diuresis and monitor -has of 12/26/2024, much improved. Admission weight 117.4 kg, with weight yesterday essentially unchanged at 117.1 kg, and with increase diuresis efforts this morning weight is down to 112.2 kg. Status: Acute (12) Sleep apnea: Problem details: -On home CPAP, with increased difficulties tolerating and with ongoing sleep specialist follow-up -continue with efforts Status: Acute (13) Paroxysmal atrial fibrillation: Status: Acute (14) Chronic anticoagulation: Problem details: Warfarin Status: Acute (15) Hypertension: Problem details: -underlying diastolic heart heart failure likely attributable to hypertensive cardiomyopathy Status: Acute (16) Stage 3 chronic kidney disease: Status: Acute Plan 1. Reviewed impression and recommendations with patient and son 2. Answered their questions 3. They are agreeable with above stated plans and recommendations with [facility] as early as tomorrow if she continues to be stable or improved Time Spent With Patient Total time spent: 45 minutes Subjective Date Seen: 12/26/24 Interval history: Admission history of present illness: ?84 year old female resident of [address] [place] [address] admitted through the emergency department with weakness, nausea, loss of appetite, dyspnea. These are all chronic symptoms for her but have been much worse in the last 1-2 days. She was hospitalized in [place] 1 month ago with similar symptoms although that time she appeared to have a viral gastroenteritis as well. She reports she was generally doing well until yesterday when she started having worsening nausea and anorexia and today where she was quite short of breath and quite weak. She has not had cold or cough symptoms. No chest pain or abdominal pain. No vomiting. No diarrhea or urinary symptoms. She is not aware of any fever. Prior to her hospitalization in October she was living independently at home but there were concerns about her ability to care for herself and she subsequently has been at [address] [place] [address].? 12/26/2024: Hospital day 3. More awake and interactive. Tolerated increased movement. Eating and drinking. I assessed patient with her son, Kenneth, present. She is much closer to baseline cognition. Kenneth expresses his opinion that his mother's no longer able to live independently. She has been living at [address] [place] [address] getting a lot of services for the last several weeks and he notes that she generally did is much safer and does better there than she was at home previously. His preferences that she returned to [facility] when her condition allows. I reviewed with Kenneth how the patient and family has decided not to do any further diagnostic or interventional efforts regarding the breast mass with lymphadenopathy and lung nodules. We discussed the possibility of hospice support. He indicates he in their family are still considering this. Patient denies dyspnea at rest. Denies paroxysmal nocturnal dyspnea or orthopnea. Denies chest heaviness, pressure, tightness, or pain. Denies syncope or near-syncope. Denies orthostasis. Denies nausea or vomiting. Eating and drinking and tolerating. Exam Narrative: Exam Narrative: Examined patient in her hospital room. Appears comfortable and in no acute distress. Somewhat anxious. Son, Kenneth, notes this is her baseline recently. Lungs without wheezing or rhonchi with fine end inspiratory rales bibasilarly. With patient in bed with head of bed elevated at 60?, does not have jugular venous distension but does have hepatojugular reflux. Trace edema pretibially bilaterally. Heart tones with regular rhythm, normal S1-S2. Const: Vital Signs, click to edit/add: Vital Signs - 24 hr 12/25/24 19:00 12/26/24 00:05 12/26/24 00:40 Temperature 97.8 F 98.3 F Pulse Rate Pulse Rate [Pulse Oximeter] 60 64 Respiratory Rate 18 22 Blood Pressure [Le ft Arm] 154/89 H 111/82 Pulse Oximetry 92 90 90 Oxygen Delivery Me thod Nasal Cannula Nasal Cannula Nasal Cannula Oxygen Flow Rate 2 2 2 12/26/24 00:43 12/26/24 03:00 12/26/24 03:01 Temperature Pulse Rate 66 Pulse Rate [Pulse Oximeter] Respiratory Rate Blood Pressure [Le ft Arm] Pulse Oximetry 94 91 Oxygen Delivery Me thod Nasal Cannula Room Air Oxygen Flow Rate 1 12/26/24 03:31 12/26/24 07:55 12/26/24 07:55 Temperature 98.4 F Pulse Rate Pulse Rate [Pulse Oximeter] 60 77 Respiratory Rate 18 20 20 Blood Pressure [Le ft Arm] 126/72 Pulse Oximetry 91 93 93 Oxygen Delivery Me thod Room Air Room Air Room Air Oxygen Flow Rate 12/26/24 07:55 12/26/24 11:24 Temperature 97.6 F Pulse Rate 63 Pulse Rate [Pulse Oximeter] 61 Respiratory Rate 18 Blood Pressure [Le ft Arm] 145/75 H Pulse Oximetry 95 Oxygen Delivery Me thod Room Air Oxygen Flow Rate
[2024-12-26] MEDS: ATORVASTATIN CALCIUM 40 MG TABLET PO (18:01)
[2024-12-27 02:47] VITALS: BP 160/90; PULSE 84; RESP 24; TEMP 36.3; O2SAT 91
[2024-12-27 07:00] VITALS: BP 190/91; PULSE 60; PULSE 63; RESP 20; TEMP 36.9; O2SAT 93
--- NOTE | 2024-12-27 07:40 | PC.NURSE ---
Pt is alert and oriented to self and place, has some forgetfulness with time. Pt has been on room air throughout night. Pt denies pain, SOB, and N/V. Pt is ups SBA with walker to bathroom. ?
[2024-12-27] MEDS: predniSONE 20 MG TABLET 40 MG PO (08:28)
[2024-12-27 09:21] VITALS: BP 157/82; PULSE 71
[2024-12-27] MEDS: carvediloL 6.25 MG TABLET 12.5 MG PO (09:21)
[2024-12-27] MEDS: allopurinoL 100 MG TABLET PO (09:21)
[2024-12-27] MEDS: POTASSIUM CHLORIDE 10 MEQ CAPSULE ER 20 MEQ PO (09:21)
[2024-12-27] MEDS: ACETAMINOPHEN 500 MG TABLET 1000 MG PO (09:22)
[2024-12-27] MEDS: TORSEMIDE 20 MG TABLET 40 MG PO (09:22)
[2024-12-27] MEDS: ASPIRIN 81 MG TABLET EC PO (09:22)
[2024-12-27] MEDS: ENALAPRIL MALEATE 10 MG TABLET 20 MG PO (09:22)
[2024-12-27 11:00] VITALS: BP 146/69; PULSE 65; RESP 20; TEMP 36.4; O2SAT 93
[2024-12-27 15:00] VITALS: BP 154/84; PULSE 68; RESP 18; TEMP 36.5; O2SAT 95
--- NOTE | 2024-12-27 16:37 | PC.NURSE ---
Pt discharged @ 1610 via wheelchair, returning to [facility]. Nurse to nurse report given. Accompanied by son and [id number]. IV removed. Forms signed. Pt in good condition, no pain, no nausea. Final room check complete.
--- NOTE | 2024-12-27 16:46 | PM.DS1 ---
DS: Providers Provider Date Seen: 12/27/24 Date of admission: 12/24/24 22:45 Primary care physician: Johnathan Lopez MD Admitting Clinician: Carlitos Kent MD Consults: 12/24/24 23:36 Consult to Occupational Therapy [CONS] Routine Comment: Reason(s) for OT Consult:: Evaluate and Treat Any Restrictions?:: No Restrictions Consult to Physical Therapy [CONS] Routine Comment: Reason(s) for PT Consult:: Evaluate and Treat Any Restrictions?:: No Restrictions Attending Physician on discharge: John Gibbons MD Date of Discharge: 12/27/24 DS: Diagnosis Discharge Diagnosis (1) Hypoxia: Status: Acute Problem details: -Has been on oxygen in the past but not recently. -likely multifactorial from COPD, pulmonary hypertension, diastolic heart failure -as of 12/26/2024, no longer requiring oxygen support (2) COPD exacerbation: Status: Acute Problem details: -COPD exacerbation is the most likely cause of her acute dyspnea, hypoxia and weakness. No obvious triggering infection. Improved substantially as of 12/26/2024 -also has element of chronic heart failure (3) Weakness: Status: Acute Problem details: -This appears to be acute on chronic. Multiple chronic medical problems likely contributing. Acute change may be related to COPD exacerbation. Other contributors include heart failure, obesity, deconditioning, possible breast cancer. -as of 12/26/2024 patient is improving substantially compared to when she 1st presented and is closer to baseline, but appears will benefit from ongoing PT and OT (4) Heart failure with preserved ejection fraction: Status: Acute Problem details: -Echocardiogram from January 2024: Final Impressions: 1. Echo contrast was administered to enhance visualization of all left ventricular segments. 2. Normal left ventricular size, mildly increased wall thickness, normal global systolic function, calculated EF of 61 %. 3. Basal inferior segment and basal septum segment are abnormal. 4. Grade 2 pattern of LV diastolic filling. 5. Right ventricular cavity size is normal, global systolic RV function is mildly reduced. 6. Mildly enlarged left atrium. 7. 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 8. The mitral valve is normal, mild to moderate mitral regurgitation. 9. Moderate tricuspid regurgitation with an estimated RVSP of 38 mmHg + the RA pressure. 10. IVC geometry compatible with an elevated estimated RA pressure (15 mmHg). -has acute on chronic heart failure at this time, at minimum due to diastolic heart failure, possibly related to pulmonary hypertension as well which is noted in the last echocardiogram as specified above -acute diuresis and monitor -has of 12/26/2024, much improved. Admission weight 117.4 kg, with weight yesterday essentially unchanged at 117.1 kg, and with increase diuresis efforts this morning weight is down to 112.2 kg. A single dose of IV furosemide was given in the hospital and we continued on her oral torsemide. 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 (11) Breast cancer: Status: Acute Problem details: -Left breast mass diagnosed as breast cancer in October 2024. Patient has declined further evaluation or treatment. Likely metastatic to lymph nodes in the left axilla. (12) Lung nodule: Status: Acute Problem details: -8 mm left lower lobe indeterminate nodule. Radiologist recommends follow-up in 3 months. This is not consistent with patient's goals of care having already declined any evaluation or treatment for known breast cancer (13) Pancreatic cyst: Status: Acute Problem details: -1.5 cm pancreatic cyst near head of pancreas seen on CT scan from October 2024. Suspicious for IPMN (14) Elevated liver transaminase level: Status: Acute Problem details: -Present during her hospital admission 1 month ago. Cause is uncertain. Abdominal ultrasound was unremarkable. Abdominal CT was unremarkable. (15) Anorexia: Status: Acute Problem details: -Probably acute on chronic loss of appetite. Cause for this is uncertain. Unremarkable CT abdomen scan 1 month ago. (16) Nausea: Status: Acute Problem details: -Acute on chronic. Abdominal CT scan from 1 month ago in [place] is nondiagnostic. DS: Summary Hospital Course Hospital Course: Admission history of present illness: ?84 year old female resident of [address] [place] [address] admitted through the emergency department with weakness, nausea, loss of appetite, dyspnea. These are all chronic symptoms for her but have been much worse in the last 1-2 days. She was hospitalized in [place] 1 month ago with similar symptoms although that time she appeared to have a viral gastroenteritis as well. She reports she was generally doing well until yesterday when she started having worsening nausea and anorexia and today where she was quite short of breath and quite weak. She has not had cold or cough symptoms. No chest pain or abdominal pain. No vomiting. No diarrhea or urinary symptoms. She is not aware of any fever. Prior to her hospitalization in October she was living independently at home but there were concerns about her ability to care for herself and she subsequently has been at [address] [place] [address].? Within 48 hours her condition improved substantially. She was more awake. Less sleepy. No longer requiring oxygen support. Able to discuss with patient and son a discharge disposition plan. They are agreeable to return back to the custodial facility. Son will continue to consider the possibility of hospice services given decision not to further evaluate or treat the breast mass with associated lymphadenopathy and associated pulmonary nodule suspicious of metastatic disease. Status at Discharge Functional status at discharge: uses cane/walker Overall status at discharge: patient is progressing back to baseline Time Spent with Patient Time attestation: Total time spent providing and/or coordinating discharge services: Time spent: Greater than 30 minutes Exam Narrative: Exam Narrative: Examined patient in her hospital room. Appears comfortable and in no acute distress. Somewhat anxious. Son, Kenneth, notes this is her baseline recently. Lungs without wheezing or rhonchi with fine end inspiratory rales bibasilarly. With patient in bed with head of bed elevated at 60?, does not have jugular venous distension but does have hepatojugular reflux. Trace edema pretibially bilaterally. Heart tones with regular rhythm, normal S1-S2. Ambulates with standby assist of 1, walker, gait belt from bed to bathroom and back Const: Vital Signs, click to edit/add: Vital Signs - 24 hr 12/26/24 19:00 12/26/24 23:00 12/26/24 23:00 Temperature 97.9 F 97.9 F Pulse Rate 61 Pulse Rate [Pulse Oximeter] 64 86 Respiratory Rate 18 18 Blood Pressure [Le ft Arm] 155/79 H 144/98 H Pulse Oximetry 97 90 Oxygen Delivery Me thod Room Air Room Air 12/26/24 23:00 12/26/24 23:00 12/27/24 02:47 Temperature 97.4 F L Pulse Rate Pulse Rate [Pulse Oximeter] 84 Respiratory Rate 18 18 24 Blood Pressure [Le ft Arm] 160/90 H Pulse Oximetry 90 91 Oxygen Delivery Me thod Room Air Room Air 12/27/24 07:00 12/27/24 07:00 12/27/24 07:00 Temperature 98.4 F Pulse Rate 60 Pulse Rate [Pulse Oximeter] 63 Respiratory Rate 20 20 Blood Pressure [Le ft Arm] 190/91 H Pulse Oximetry 93 93 Oxygen Delivery Me thod Room Air Room Air 12/27/24 09:21 12/27/24 11:00 12/27/24 15:00 Temperature 97.5 F L Pulse Rate Pulse Rate [Pulse Oximeter] 71 65 Respiratory Rate 20 18 Blood Pressure [Le ft Arm] 157/82 H 146/69 H Pulse Oximetry 93 95 Oxygen Delivery Me thod Room Air Room Air 12/27/24 15:00 Temperature 97.7 F Pulse Rate Pulse Rate [Pulse Oximeter] 68 Respiratory Rate 18 Blood Pressure [Le ft Arm] 154/84 H Pulse Oximetry 95 Oxygen Delivery Me thod Room Air DS: Data Imaging CT scan - chest: Radiologist's impression: IMPRESSION: 1. Motion degrades evaluation of the distal segmental and subsegmental pulmonary arteries. No discrete large central or proximal segmental pulmonary embolus. 2. Left breast mass measuring 48 millimeters. Associated left axillary lymphadenopathy. Constellation of findings are highly concerning for primary breast cancer with associated metastatic disease. 3. 8 millimeter left lower lobe indeterminate pulmonary nodule. Differential considerations include solitary pulmonary metastasis, synchronous primary lung cancer, versus other benign etiologies. Attention on follow up exams per clinical protocol or in 3 months to document stability and to assess underlying malignant potential. Discharge Plan Discharge Disposition: [facility] Date of Admission: 12/24/24 22:45 Attending Provider on Discharge: John Gibbons Primary Care Provider: Johnathan Lopez Condition: Improved Anticipated Discharge Date/Time: 12/27/24 14:00 Discharge Medications: New albuterol sulfate 2.5 mg /3 mL (0.083 %) Solution For Nebulization 2.5 mg NEB Q4H PRN (Reason: wheezing) 30 Days Qty: 30 0RF Continued acetaminophen 500 mg tablet 1,000 mg PO BID allopurinol 100 mg tablet 100 mg PO DAILY albuterol sulfate 90 mcg/actuation HFA aerosol inhaler 2 puff INHALATION Q4H PRN (Reason: wheezing) atorvastatin 40 mg tablet 40 mg PO QPM carvedilol 12.5 mg tablet 12.5 mg PO BID torsemide 20 mg tablet 40 mg PO BID Patient Comments: TAKE TWO TABLETS (40MG) BY MOUTH TWICE A DAY enalapril maleate 20 mg tablet 20 mg PO BID aspirin 81 mg tablet,delayed release (DR/EC) 81 mg PO DAILY calcium carbonate-vitamin D3 600 mg-10 mcg (400 unit) tablet 1 tab PO DAILY diclofenac sodium [Arthritis Pain (diclofenac)] 1 % gel 2 g topical QID potassium chloride 20 mEq tablet extended release 20 meq PO BID Trelegy Ellipta 200-62.5-25 mcg blister with device 1 ea INHALATION DAILY warfarin 2 mg tablet 2 mg PO SUTUTHSA warfarin 3 mg tablet 3 mg PO MOWEFR Eye Multivitamin 2,148 mcg-113 mg-45 mg-17.4mg tablet 1 tab PO DAILY Rx Instructions: administer with AM and PM meals Discontinued albuterol sulfate 2.5 mg /3 mL (0.083 %) solution for nebulization 2.5 mg continuous nebulization Q2H PRN (Reason: wheezing) amoxicillin 500 mg capsule 2,000 mg PO ONCE Discharge Orders: Discharge Order (Routine); Ordered 12/27/24 Ordered By: John Gibbons Additional Instructions: 1. PT/INR on Tuesday12/31/24 Activity Level: Activity as Tolerated, Up with assist and Use Walker Discharge Diet: Regular Follow Up Appointments: Johnathan Lopez MD [Primary Care Provider] - Forms: [facility] Info Instructions Admit to: SNF Discharge Potential: Poor Length of Stay: >90 days Code Status: DNR/DNI Rehab Potential: Fair Therapy: Physical Therapy and Occupational Therapy Therapy Orders: Evaluate and Treat Oxygen: No Urinary Catheter: No Orders are good >30 days: Yes Signature: John Gibbons
== END 2024-12-27 16:10 | DRG 190 ==
LOC: ED 21:34 → MEDSURG 21:53
PROVIDERS: Admitting Provider Family Medicine; Emergency Provider Student in an Organized Health Care Education/Training Program; PCP Family Medicine; Visit Provider Family Medicine
DX: J44.1 Chronic obstructive pulmonary disease with (acute) exacerbation (principal); I50.33 Acute on chronic diastolic (congestive) heart failure; C77.3 Secondary and unspecified malignant neoplasm of axilla and upper limb lymph nodes; I13.0 Hypertensive heart and chronic kidney disease with heart failure and stage 1 through stage 4 chronic kidney disease, or unspecified chronic kidney disease; K86.2 Cyst of pancreas; Z68.41 Body mass index [BMI] 40.0-44.9, adult; I43 Cardiomyopathy in diseases classified elsewhere; C78.02 Secondary malignant neoplasm of left lung; I27.20 Pulmonary hypertension, unspecified; R09.02 Hypoxemia; R11.0 Nausea; R53.1 Weakness; R74.01 Elevation of levels of liver transaminase levels; E66.9 Obesity, unspecified; G47.30 Sleep apnea, unspecified; I48.0 Paroxysmal atrial fibrillation; Z79.01 Long term (current) use of anticoagulants; N18.30 Chronic kidney disease, stage 3 unspecified; C50.912 Malignant neoplasm of unspecified site of left female breast; R63.0 Anorexia; G31.84 Mild cognitive impairment of uncertain or unknown etiology; Z95.0 Presence of cardiac pacemaker; Z87.891 Personal history of nicotine dependence
CPT/HCPCS: 36415; 71275; 80053; 80076; 81001; 83690; 83735; 83880; 84443; 84484; 85025; 85379; 85610; 87086; 87631; 93005; 94761; 97116; 97162; 97165; 97530; 97535; 99284; 99285; A9270; J1940; J7512; Q9967

== ENCOUNTER 2025-01-01 13:02 | Outpatient (CLI) | payer MEDICARE, BC, SELFPAY | END 2025-01-01 13:03 | disposition home or self-care (01) | LOC: AMB 01-03 08:47 | PROVIDERS: PCP Family Medicine; Visit Provider Family Medicine | DX: R41.82 Altered mental status, unspecified (principal) | CPT/HCPCS: A0425; A0427 ==

== ENCOUNTER 2025-01-01 13:30 | Inpatient (IN) | payer MEDICARE, BC, SELFPAY ==
[2025-01-01] VITALS (23 sets, daily range): BP systolic 129–192; BP diastolic 77–126; PULSE 60–93; RESP 10–43; TEMP 36.4–36.6; O2SAT 86–96; BMI 41.4
--- NOTE | 2025-01-01 13:37 | ED.GENADULT ---
HPI - General Adult General Date Seen: 01/01/25 Chief complaint: Neuro Symptoms/Altered Deficit Stated complaint: CVA Time Seen by Provider: 01/01/25 13:36 History of Present Illness HPI narrative: 84-year-old female brought to the ER today by EMS at from her living facility at [facility] for stroke symptoms Pre-hospital stroke team activation was called by EMS and so I met the patient in the back hallway of the ER to get her immediately to CT scanner. Report from paramedics is that she is 84. She lives at [address] [place] [address]. She was doing some physical therapy this morning and was apparently normal at that time. She apparently was back in her room and then was discovered after 12:00 p.m. with altered mental status, drowsiness, slurred speech, and apparent left facial droop. 911 was called. Blood pressure was in the 150s over 90s. She has a paced rhythm on the cafeteria monitor. Normal heart rate. Blood sugar was normal. She seems confused, slurred speech and seems to have left-sided weakness per EMS. She is on warfarin. Apparently had an INR 1.9 a couple of days ago, per EMS report. She has a son, but unclear if he has been notified of her symptoms yet. She has some advanced directives and is a partial code (unclear exactly what her advanced directives state). History from patient is limited. She is not really able to tell me what she did this morning. She is not able really to endorse any symptoms. When asked directly with slurred speech says she does not have a headache. She does not have any chest pain. She does not recall falling. Related Data Home Medications ?Medication ?Instructions ?Recorded ?Confirmed acetaminophen 500 mg tablet 1,000 mg PO BID 12/24/24 01/01/25 albuterol sulfate 90 mcg/actuation 2 puff inhalation Q4H PRN wheezing 12/24/24 01/01/25 aerosol inhaler allopurinol 100 mg tablet 100 mg PO DAILY 12/24/24 01/01/25 aspirin 81 mg tablet,delayed 81 mg PO DAILY 12/24/24 01/01/25 release atorvastatin 40 mg tablet 40 mg PO QPM 12/24/24 01/01/25 calcium 600 mg (as 1 tab PO DAILY 12/24/24 01/01/25 carbonate)-vitamin D3 10 mcg (400 unit) tablet carvedilol 12.5 mg tablet 12.5 mg PO BID 12/24/24 01/01/25 diclofenac sodium 1 % topical gel 2 g topical QID PRN 12/24/24 01/01/25 (Arthritis Pain (diclofenac)) enalapril maleate 20 mg tablet 20 mg PO BID 12/24/24 01/01/25 fluticasone fur. 200 mcg-umeclid 1 ea inhalation DAILY 12/24/24 01/01/25 62.5 mcg-vilant 25 mcg inhalat.powder (Trelegy Ellipta) potassium chloride 20 mEq 20 meq PO BID 12/24/24 01/01/25 tablet,extended release torsemide 20 mg tablet 40 mg PO BID 12/24/24 01/01/25 vitamins A,C,F-lhzu-heuxic 2,148 1 tab PO DAILY 12/25/24 01/01/25 mcg-113 mg-45 mg-17.4 mg tablet (Eye Multivitamin) warfarin 2 mg tablet 2 mg PO SUTUTHSA 12/25/24 01/01/25 warfarin 3 mg tablet 3 mg PO MOWEFR 12/25/24 01/01/25 Previous Rx's ?Medication ?Instructions ?Recorded albuterol sulfate 2.5 mg/3 mL 2.5 mg (3 mL) NEB Q4H PRN wheezing 12/27/24 (0.083 %) solution for nebulization 30 days #30 ea Allergies Allergy/AdvReac Type Severity Reaction Status Date / Time oxycodone Allergy Unknown Verified 01/01/25 13:41 [facility] Medical History (Updated 01/01/25 @ 15:39 by Josh Phillip MD) Cognitive impairment ?R41.89 - Other symptoms and signs involving cognitive functions and awareness (ICD-10) Pancreatic cyst ?K86.2 - Cyst of pancreas (ICD-10) Lung nodule ?R91.1 - Solitary pulmonary nodule (ICD-10) Elevated liver transaminase level ?R74.01 - Elevation of levels of liver transaminase levels (ICD-10) Rhabdomyolysis ?M62.82 - Rhabdomyolysis (ICD-10) Breast cancer ?C50.919 - Malignant neoplasm of unspecified site of unspecified female breast (ICD-10) Obesity ?E66.9 - Obesity, unspecified (ICD-10) Heart failure with preserved ejection fraction ?I50.30 - Unspecified diastolic (congestive) heart failure (ICD-10) History of cardiac pacemaker ?Z95.0 - Presence of cardiac pacemaker (ICD-10) Sleep apnea ?G47.30 - Sleep apnea, unspecified (ICD-10) Paroxysmal atrial fibrillation ?I48.0 - Paroxysmal atrial fibrillation (ICD-10) Chronic anticoagulation ?Z79.01 - 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 of anticoagulants (ICD-10) Hypertension ?I10 - Essential (primary) hypertension (ICD-10) Stage 3 chronic kidney disease ?N18.30 - Chronic kidney disease, stage 3 unspecified (ICD-10) COPD exacerbation ?J44.1 - Chronic obstructive pulmonary disease with (acute) exacerbation (ICD-10) Surgical History (Updated 12/24/24 @ 21:55 by Carlitos Kent MD) S/p total knee replacement, bilateral ?Z96.653 - Presence of artificial knee joint, bilateral (ICD-10) S/P oophorectomy History of aortic valve replacement with bioprosthetic valve ?Z95.3 - Presence of xenogenic heart valve (ICD-10) Social History (Updated 12/24/24 @ 22:09 by Carlitos Kent MD) Narrative: Until last month she was living independently at home. Then hospitalized with weakness and multiple other medical problems. Now at [address] [place] [address]. She is present here with her son, Kenneth, and [id number]. Kenneth is healthcare power of insurance attorney. Code status is DNR. Former smoker having quit about 40 years ago. Previously drank alcohol regularly but not currently drinking What is your current living situation?: I presently have a place to live Problems where you live: no known problems Problems where you live details: N/A In the past 12 months, utilities in danger of being shut off: no In past 12 months, lack of transportation kept you from medical appts, meetings, work, or getting things needed for daily living: no In the past 12 mos, have been you worried that your food would run out before you had money to buy more?: never true In the past 12 mos, the food you bought just didn't last and you didn't have money to buy more?: never true Highest level of school completed/degree received: high school graduate Smoking Status: Former smoker How often do you have a drink containing alcohol: never How often do you have six or more drinks on one occasion: Never AUDIT-C Alcohol total score: 0 Non-prescribed substance use: denies use How often does anyone, including family, friends and others, physically hurt you: never How often does anyone, including family, friends and others, insult or talk down to you: never How often does anyone, including family, friends and others, threaten you with harm: never How often does anyone, including family, friends and others, scream or curse at you: never service: No Exam Narrative: Exam Narrative: Primary Survey: A- patent. Speaking with slurred speech. Speaks short sentences. Seems mildly confused. Phonation normal. No stridor. B- breathing easily. Lung sounds clear and equal. Oxygen saturation normal on room air C- no active bleeding. Blood pressure stable. Symmetric pulses and cap refill in 4 extremities. D- alert but drowsy. Oriented to person place but does not know what day it is. She does have acute left facial droop, tongue the trooper treats asymmetrically. She also has left upper extremity weakness and possibly neglect. Also left leg weakness Constitutional: Appears well-developed and well-nourished. Alert. Conversant. Non toxic. HENT: Head: Atraumatic. Nose: Nose normal. Mouth/Throat: Oral mucosa is clear and moist. no trismus. Pharynx normal. Tonsils symmetric. No tonsillar enlargement, erythema, or exudate. Eyes: Conjunctivae normal. EOM normal. Right pupil is irregularly shaped due to previous surgery. Left pupil is round and reactive. Gaze is conjugate. Extraocular movements are intact. Difficult to assess for visual field deficits because the patient continually moves her gaze to look at my fingers and does not seem to be able follow commands to use her peripheral vision for field testing No scleral icterus. Neck: Normal range of motion. Neck supple. No tracheal deviation present. No JVD. Cardiovascular: Normal rate, regular rhythm. No gallop. No friction rub. No murmur heard. Symmetric radial artery pulses paced rhythm on the monitor. Pulmonary/Chest: Effort normal. No stridor. No respiratory distress. No wheezes. No rales. No rhonchi . No tenderness. Abdominal: Soft.No distension. No mass. No tenderness. No rebound. No guarding. Musculoskeletal: RUE: Normal range of motion. No tenderness. No deformity LUE: Normal range of motion. No tenderness. No deformity RLE: Normal range of motion. No edema. No tenderness. No deformity LLE: Normal range of motion. No edema. No tenderness. No deformity Lymph: No cervical adenopathy. Neurological: Mental status normal. Attention normal. Alert and oriented x3. GCS 15. Memory normal. Speech fluent. Cognition normal. Cranial Nerves intact II-XII except I did not formally test gag or visual acuity. EOMI. Palate elevates symmetrically and tongue protrudes in the midline. Strength: Strength 5/5 bilaterally in the right deltoid, biceps, triceps, sales utility representative, hip flexors, quad, hamstring, tibialis anterior, gastroc. Strength is 4+/5 in the left arm but weaker than on the left When I hold my hands out and say squeeze my fingers she only picks up her left hand but not her right hand to grab my fingers. When I specifically hold her left hand and moved up in the air and asked her to hold it she is able to hold it against gravity with some drift. She is able to hold up for almost 5 seconds Similarly when I ask her to lift up her leg she lifts up her right leg but not her left leg. When I lift her left leg of for her and ask her to hold it she is able hold for almost 5 seconds with drift Finger to nose and coordination normal. Gait not assessed due to left-sided week. NIH Stroke Scale= 7 Skin: Skin is warm and dry. No rash noted. No pallor. Normal capillary refill. Psychiatric: Normal mood. Normal affect. Const: Vital Signs, click to edit/add: Vital Signs - 24 hr 01/01/25 13:35 01/01/25 13:46 01/01/25 13:50 Temperature 97.6 F Pulse Rate 72 62 Pulse Rate [Left P ulse Oximeter] Pulse Rate [Pulse Oximeter] 93 Respiratory Rate 20 18 Blood Pressure 147/93 H 141/84 H Blood Pressure [Le ft Arm] Blood Pressure [Ri ght Upper Arm] 154/82 H Pulse Oximetry 89 94 86 L Oxygen Delivery Me thod Room Air 01/01/25 14:02 01/01/25 14:15 01/01/25 14:16 Temperature Pulse Rate 60 60 Pulse Rate [Left P ulse Oximeter] Pulse Rate [Pulse Oximeter] Respiratory Rate 10 L 25 H 12 Blood Pressure 129/77 151/94 H Blood Pressure [Le ft Arm] Blood Pressure [Ri ght Upper Arm] Pulse Oximetry 91 88 Oxygen Delivery Me thod 01/01/25 14:42 01/01/25 14:47 01/01/25 15:00 Temperature Pulse Rate 63 62 61 Pulse Rate [Left P ulse Oximeter] Pulse Rate [Pulse Oximeter] Respiratory Rate 18 19 10 L Blood Pressure 144/108 H 142/87 H Blood Pressure [Le ft Arm] Blood Pressure [Ri ght Upper Arm] Pulse Oximetry 92 91 90 Oxygen Delivery Me thod 01/01/25 15:01 01/01/25 15:06 01/01/25 15:15 Temperature Pulse Rate 61 Pulse Rate [Left P ulse Oximeter] Pulse Rate [Pulse Oximeter] Respiratory Rate 43 H 39 H Blood Pressure 160/126 H Blood Pressure [Le ft Arm] Blood Pressure [Ri ght Upper Arm] Pulse Oximetry 93 94 Oxygen Delivery Me thod 01/01/25 15:17 01/01/25 15:17 01/01/25 15:30 Temperature Pulse Rate 63 63 63 Pulse Rate [Left P ulse Oximeter] Pulse Rate [Pulse Oximeter] Respiratory Rate 42 H 42 H 12 Blood Pressure 152/94 H 152/94 H Blood Pressure [Le ft Arm] Blood Pressure [Ri ght Upper Arm] Pulse Oximetry 95 95 91 Oxygen Delivery Me thod 01/01/25 15:32 01/01/25 15:45 01/01/25 15:47 Temperature Pulse Rate 66 Pulse Rate [Left P ulse Oximeter] Pulse Rate [Pulse Oximeter] Respiratory Rate 43 H 12 26 H Blood Pressure 162/108 H 142/89 H Blood Pressure [Le ft Arm] Blood Pressure [Ri ght Upper Arm] Pulse Oximetry 96 Oxygen Delivery Me thod 01/01/25 15:47 01/01/25 16:25 Temperature 97.6 F Pulse Rate Pulse Rate [Left P ulse Oximeter] 61 Pulse Rate [Pulse Oximeter] Respiratory Rate 26 H 22 Blood Pressure 142/89 H Blood Pressure [Le ft Arm] 175/92 H Blood Pressure [Ri ght Upper Arm] Pulse Oximetry 94 Oxygen Delivery Me thod Room Air Course Course ED Course: Initial evaluation performed in the ER hallway as she arrived by EMS. Patient is alert. GCS is 15. She answers simple questions appropriately. She seems somewhat slow with her cognition though. When asked her where she has she says ?I think come in the hospital? ?. She does have neurologic deficits. Subtle left facial droop. Tongue protrudes in the midline. Electrical Sign Wirer strength is 5/5 in the right hand but she is not ripping my left hand at all. Unclear if she has left-sided neglect. When I touch her left arm and help her lift it up she is able to hold it against gravity. She also seems to have left lower extremity weakness. She denies headache. She is not able to provide any other history. And with initial presentation will obtain head CT, noncontrast to look for bleed since she is on warfarin. Wound check creatinine before we can get CT angio of her head and neck. Page placed for Stroke Neurology. Initial labs and IV orders placed. EMS had attempted an IV but was not successful. Discussed with nursing that we need expedite her INR because that is going to be the biggest barrier before we can give tenecteplase. Recheck-initial head CT negative for bleed by my read. Awaiting Radiology interpretation. In review of medical records I see she was seen here in the ER about 8 days ago on 12/24 and subsequently hospitalized until 12/27.. She apparently had come in for shortness of breath and weakness, poor appetite. According to those notes she has a history of heart failure, but did not have any new lower extremity swelling at that time. Blood pressure was 149/65. She was afebrile. Pulse 60. Respiratory rate 24. She was normal on oxygen via nasal cannula, 2 L. WBC 12.2, hemoglobin 13.5, platelet count 190. D-dimer was 0.96. Sodium 140, potassium 4.3, chloride 99, bicarb 32, BUN 24, creatinine 1.1, GFR 49, glucose 164. Bilirubin 1.5, AST 35, ALT 23., alk-phos 78. Troponin 0.02 (normal). NT proBNP was 5760 (elevated). Urinalysis was essentially normal. COVID/influenza/RSV PCR negative. Chest CT scan showed no definite PE but was limited by motion artifact. She had a left breast mass measuring 4.8 cm and left axillary lymphadenopathy, concerning for a primary breast cancer with associated metastatic disease. She also had an 8 mm left lower lobe pulmonary nodule. She was admitted for generalized weakness. He per discharge summary she was hypoxic and required oxygen in the hospital. Likely multifactorial from COPD, pulmonary hypertension, diastolic CHF it was able to come off oxygen at the time of discharge. Per discharge summary, echo in January showed an EF of 61%. Grade 2 left ventricular diastolic filling pattern. She was discharged last . Per report the are apparently she had her family elected no further evaluation or treatment for her breast cancer. She has advanced directives indicating that she is DNR/DNR. She would 1 selective care's like hospitalization but generally avoid aggressive or invasive procedures or ICU Discussed with Stroke Neurology, Dr Morales. At this point on my exam she does have left-sided weakness, left facial droop, left neglect,. NIH stroke scale about 7. She would be a candidate for thrombolytics based on time of last known well, provided that her INR is in a safe zone to give it. If it is 1.7 or above, thrombolytics would be contraindicated due to bleeding risk. He agrees with giving thrombolytics if the patient is accepting and if INR is low enough to make safe. Discussed with the patient's son, Kenneth. He had not seen his mother this morning. We discussed her presenting symptoms and our concern for acute ischemic stroke. Thrombolytic would be an option for her if INR is low enough. Discussed the thrombotic would give her the best chance for symptomatic improvement but also carries risk of bleeding. Also if we give thrombolytics, she would need to be transferred to a stroke ICU, typically [facility]. Kenneth says he would agree with a thrombolytic if she could be transferred to [facility], but not [facility]. Update-discussed with the transfer center. They are not able to accept this patient in transfer based on family request. If the patient could be accepted to the ICU at [facility], [facility] will not take her. History from her group home staff, more any is that she was at her baseline this morning was doing walking in physical therapy up until 11:30 a.m.. She was definitely normal then when she went back to room. She apparently had some visitors between 11 30 and around noon. A nurse came to check on her at about 12 15 after her visitors left and found her with these symptoms. Megan is not sure for visitors would have recognize symptoms of stroke at its onset or not, but will try to phone them to find out if they noticed any unusual symptoms are not. At this point are last known well would be 11:30 a.m. Update-nursing called back and said her last known well was probably closer to 11:45 a.m.. Recheck-call Kenneth back. Updated over the phone that [facility] cannot accept his mother in transfer because of they do not have capacity currently in their ICU. [facility]'s recommendation would be to treat her stroke appropriately and transfer to [facility]. Kenneth verbalizes understanding. Still waiting on her INR to determine whether not thrombolytics is even affect safe option. Update-discussed again with Dr. Ava calloway was calling back for update about the INR. INR still not back. We discussed that family is leaning toward giving thrombolytics but wants to hear about the INR and have time to think it over. I have preliminarily ordered the thrombolytics dose so that pharmacy can at least get the medication ready (if not mix it up). Dr. Morales agrees. He is waiting on CT angiogram. 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 Potentially might be a candidate for thrombectomy, however given the patient's age and comorbidities, Ava calloway thinks IR will likely not want to intervene. He will discussed with them and call back Update-INR is back and is at 1.58 which keeps the window open for giving thrombolytics. I called back to the patient's son Kenneth. We discussed the risk of bleeding on thrombolytics, being about 4 5% discussed the potential for improvement, being about 10%, we also discussed the potential for no change with the thrombolytics. We discussed that if we do not give thrombolytics his mother is left with acute left-sided weakness on top of her previous generalized weakness. Likelihood have difficultly walking unassisted. Would likely need a long course of rehab if she is ever going to regain strength. Kenneth wants to have a phone discussion with the patient's daughter and after a family conference he will call me back Also updated the patient. She still mildly confused but seems able to understand that she is having a stroke. She seems appropriately alarmed and upset. She says that she would want to do whenever I recommend and whenever her son decides. I tried to have a discussion with her about thrombolytics and the risks and benefits and the needs for transfer. She seems indifferent to whether not we administer thrombolytics. At this time I received a phone call from [facility], Dr. Florentin francis. 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 We discussed again that unfortunately the [facility] cannot take his mother in transfer. He says overall he would prefer not to give thrombolytics especially if there is risk and if as a requirement of transferring to the [facility]. He understands the diagnosis and of stroke and that thrombolytics is the recommended therapy. He also understands that there is risk with thrombo lytic . After family conference, he informs me that they choose not to give thrombolytics. Therefore I updated our pharmacy not to mix the med. Discussed again with Stroke Neurology, Dr. Morales. He was aware of the ICA aneurysm on the angiogram. Would recommend, if the patient wants any intervention, the patient would be safe for outpatient follow-up in the IR clinic. Likely, given the patient's overall other medical conditions and goals of care, no intervention would be undertaken stroke neuro recommends aspirin for now for the patient's acute stroke and agrees with admission to the hospitalist here in [place]. Updated patient's son Kenneth. He will be arriving here at the hospital within the hour. Discussed with hospitalist, Dr. Canseco. She graciously accepts this patient for admission to [place] under the hospitalist service Vital Signs Vital signs: Initial Vital Signs Temperature 97.6 F 01/01/25 13:35 Temperature Source Temporal Artery Scan 01/01/25 13:35 Pulse Rate 93 01/01/25 13:35 Respiratory Rate 20 01/01/25 13:35 Blood Pressure 154/82 H 01/01/25 13:35 Blood Pressure Mean 106 H 01/01/25 13:35 Blood Pressure Position Supine 01/01/25 13:35 Pulse Oximetry 89 01/01/25 13:35 Oxygen Delivery Method Room Air 01/01/25 13:35 Vital Signs Temperature 97.6 F 01/01/25 13:35 Pulse Rate 93 01/01/25 13:35 Respiratory Rate 20 01/01/25 13:35 Blood Pressure 154/82 H 01/01/25 13:35 Pulse Oximetry 89 01/01/25 13:35 Oxygen Delivery Method Room Air 01/01/25 13:35 Temperature 97.6 F 01/01/25 16:25 Pulse Rate 61 01/01/25 16:25 Respiratory Rate 22 01/01/25 16:25 Blood Pressure 175/92 H 01/01/25 16:25 Pulse Oximetry 94 01/01/25 16:25 Oxygen Delivery Method Room Air 01/01/25 16:25 Medications Administered Medications: Discontinued Medications Generic Name Dose Route Start Last Admin Trade Name Freq PRN Reason Stop Dose Admin Aspirin 300 mg 01/01/25 15:35 01/01/25 16:02 Aspirin 300 Mg Supp WA 01/01/25 15:36 300 mg ONCE ONE Administration Medical Decision Making MDM Narrative Medical decision making narrative: 84-year-old female with a complex past history presenting to the ER today with acute neurologic symptoms and left-sided weakness suggestive of acute stroke. Head CT was negative for bleed. She was within the window for thrombolytics. After workup here with CT, CT angio, lab workup, Stroke Neurology consult, in the ER and efforts to expedite her lab workup to get her INR and discussed with family to determine goals of care and whether not they would want from lytics, family chooses not to administer thrombolytics. Patient is in different about receiving the med or not. Will give her aspirin for now. EKG shows a functional pacer with a paced rhythm. CBC shows normal white count and hemoglobin. Platelet count normal. BMP shows borderline hypokalemia with potassium of 3.5. Otherwise kidney function and lactic acid are normal. Troponin is normal. She was recently hospitalized for hypoxia with COPD/CHF exacerbations. Here in the ER oxygen sats are in the 90s on room air. Lab Data Labs: Lab Results 01/01/25 01/01/25 01/01/25 Range/Units 13:36 14:12 16:11 WBC 8.38 (4.50-11.00) K/uL RBC 4.20 (4.00-5.20) m/uL Hgb 13.0 (12.0-16.0) gm/dL Hct 39.9 (33.0-51.0) % MCV 95 (80-100) fL MCH 31 (26-34) pg MCHC 33 (32-36) gm/dL RDW Coeff of Jarrett 15.4 (11.5-15.5) % Plt Count 248 (140-440) K/uL Neut % (Auto) 71.1 (42.0-72.0) % Lymph % (Auto) 17.7 L (20-44) % Summers % (Auto) 8.9 (0.0-11.0) % Eos % (Auto) 1.4 (0.0-7.0) % Baso % (Auto) 0.4 (0.0-3.0) % Neut # (Auto) 5.96 (1.7-7.0) K/uL Lymph # (Auto) 1.50 (0.90-2.90) K/uL Summers # (Auto) 0.70 (0.00-0.90) K/UL Eos # (Auto) 0.12 (0.00-0.50) K/uL Baso # (Auto) 0.03 (0.00-0.30) K/uL Abs Immat Gran (auto) 0.04 (0.00-0.30) K/uL Imm/Tot Granulo (auto) 0.5 % INR 1.58 H (0.91-1.10) Sodium 141 (135-149) mmol/L Potassium 3.5 L (3.6-5.1) mmol/L Chloride 102 (96-114) mmol/L Carbon Dioxide 32 (20-32) mmol/L Anion Gap 7 (7-15) mEq/L BUN 25 (7-30) mg/dL Creatinine 1.1 (0.5-1.5) mg/dL Estimated GFR 49 ml/min Glucose 114 (60-115) mg/dL Lactate 1.5 (0.5-1.9) mmol/L Calcium 8.8 (8.4-10.6) mg/dL Troponin I 0.02 (0.01-0.04) ng/mL SARS-CoV-2 (PCR) Negative SARS-CoV-2 (Negative) Influenza Type A (PCR) Negative PCR FLU A (Negative) Influenza Type B (PCR) Negative PCR FLU B (Negative) RSV (PCR) Negative PCR RSV (Negative) POC Creatinine 1.2 (0.6-1.3) mg/dl ECG Data Attestation: I personally reviewed and interpreted this ECG as follows: Interpretation: Ventricular paced rhythm Rate: 71 WA: Not applicable QRS axis: Left axis deviation, paced QRS is ST segment/T wave: Artifact in baseline. No definite ST segment elevation or depression by Sgarbossa criteria QTc: 504 Critical Care Time Critical Care Time Critical Care Time: Yes Attestation: The patient required my highest level preparedness to intervene emergently and I personally spent this critical care time directly and personally managing the patient. This critical care time included: Obtaining a history; Examining the patient; Pulse oximetry; Ordering and reviewing of studies; Arranging urgent treatment with development of a management plan; Evaluation of patients response to treatment; Frequent reassessment discussions with other providers. This critical care time was performed to assess and manage the high probability of imminent life-threatening deterioration that could result in multiorgan failure. It was exclusive of separate billable procedures and treating other patients and teaching time. Total Critical Care Time in Minutes: 60 Discharge Plan Discharge Clinical Impression: Acute left-sided muscle weakness, Acute ischemic right MCA stroke, Aneurysm, carotid artery, internal Patient Disposition: Admitted As Observation
--- NOTE | 2025-01-01 14:13 | CRLHL7_ITS ---
For Patients: As a result of the 21st Century Cures Act, medical imaging exams and procedure reports are released immediately into your electronic medical record. You may view this report before your referring provider. If you have questions, please contact your health care provider. CLINICAL HISTORY: Left sided weakness and slurred speech. TECHNIQUE: Standard helical CT image acquisition through the head following the administration of intravenous contrast was performed. 3D and MIP reconstructions were performed at a separate workstation and permanently archived. COMPARISON: None available. FINDINGS: There is occlusion of the M1 segment of the right MCA. Scattered intracranial atherosclerotic disease involves the anterior and posterior circulation, most pronounced in the carotid siphons. No evidence of cerebral aneurysm. No findings to suggest an arterial-venous shunting lesion. The major dural venous sinuses and deep venous system are patent. IMPRESSION: Occlusion of the M1 segment of the right MCA. Please note that all CT scans at this facility use dose modulation, iterative reconstruction, and/or weight-based dosing when appropriate to reduce radiation dose to as low as reasonably achievable. Dictated by Gary Hogue MD @ 01/02/2025 10:03:33 AM (Electronically Signed)
--- NOTE | 2025-01-01 14:13 | CRLHL7_ITS ---
For Patients: As a result of the Century Cures Act, medical imaging exams and procedure reports are released immediately into your electronic medical record. You may view this report before your referring provider. If you have questions, please contact your health care provider. CLINICAL HISTORY: Left-sided weakness and slurred speech. TECHNIQUE: Standard helical CT image acquisition through the neck was performed after intravenous contrast bolus enhancement. 3D and MIP reconstructions were performed at a separate workstation and permanently archived. COMPARISON: None available. FINDINGS: Mild stenoses at the origins of the great vessels from the aortic arch. There is severe stenoses of the distal common carotid artery spanning through the level of the origins of the ICAs, 70-80% stenotic by NASCET criteria. 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 The more distal cervical ICAs are patent. The left vertebral artery is occluded at its origin. The origin and cervical segment of the right vertebral artery are patent. IMPRESSION: 1. 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 2. 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 3. 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 Please note that all CT scans at this facility use dose modulation, iterative reconstruction, and/or weight-based dosing when appropriate to reduce radiation dose to as low as reasonably achievable. Dictated by Gary Hogue MD @ 01/02/2025 9:54:19 AM (Electronically Signed)
[2025-01-01 14:17] LABS: Lactate* 1.5 mmol/L (0.5-1.9)
[2025-01-01 14:21] LABS: Creatinine, Point-of-Care* 1.2 mg/dl (0.6-1.3)
[2025-01-01 14:26] LABS: Basophils Absolute Auto 0.03 K/uL (0.00-0.30); Basophils Percent Auto 0.4 % (0.0-3.0); Eosinophils Absolute Auto 0.12 K/uL (0.00-0.50); Eosinophils Percent Auto 1.4 % (0.0-7.0); Hematocrit 39.9 % (33.0-51.0); Immature Granulocytes Abs Auto 0.04 K/uL (0.00-0.30); Immature Granulocytes Pct Auto 0.5 %; Lymphocytes Percent Auto 17.7 % (20-44); Mean Corpuscular HGB Conc 33 gm/dL (32-36); Mean Corpuscular Hemoglobin 31 pg (26-34); Mean Corpuscular Volume 95 fL (80-100); Monocytes Percent Auto 8.9 % (0.0-11.0); Neutrophils Absolute Auto 5.96 K/uL (1.7-7.0); Neutrophils Percent Auto 71.1 % (42.0-72.0); Platelet Count* 248 K/uL (140-440); RDW Coefficient of Variation % 15.4 % (11.5-15.5); White Blood Count* 8.38 K/uL (4.50-11.00)
[2025-01-01 14:32] LABS: Chloride* 102 mmol/L (96-114); Sodium* 141 mmol/L (135-149)
[2025-01-01 14:33] LABS: Potassium* 3.5 mmol/L (3.6-5.1)
[2025-01-01 14:36] LABS: Anion Gap 7 mEq/L (7-15); Blood Urea Nitrogen* 25 mg/dL (7-30); Calcium* 8.8 mg/dL (8.4-10.6); Carbon Dioxide* 32 mmol/L (20-32); Creatinine* 1.1 mg/dL (0.5-1.5); Estimated Glomerular Filt Rate 49 ml/min; Glucose* 114 mg/dL (60-115)
[2025-01-01 14:42] LABS: Slide Review Reflex No
[2025-01-01 14:48] LABS: Troponin I* 0.02 ng/mL (0.01-0.04)
[2025-01-01 14:58] LABS: INR 1.58 (0.91-1.10); Prothrombin Time 19.9 Seconds
--- OUTSIDE RECORDS SUMMARY | 2025-01-01 15:03 | XMS_ITS | Clinical Summary ---
Author Organization [employer] [facility] Address [facility] [place] [address] Care Team Providers Care Babysitter Name Role Phone Juan Landry Primary Care Provider [phone] Allergies Active Allergy Reactions Criticality Noted Date Comments Oxycodone *Unknown,*Unknown - Pt Doesn't Remember 01/15/2010 Cerner listed no reactions Medications atorvastatin (LIPITOR) 40 mg tablet Take 40 mg by mouth at bedtime. Active amoxicillin (AMOXIL) 500 mg capsule Take 4 capsules by mouth 1 hour before dental procedure. Active aspirin (ECOTRIN) 81 mg enteric coated tablet Take 81 mg by mouth once daily. Active multivitamins-mine rals-lutein (CENTRUM SILVER) 0.4 mg-300 mcg- 250 mcg tab Take 1 Tablet by mouth once daily. Active allopurinoL (ZYLOPRIM) 100 mg tablet Take 100 mg by mouth once daily. 2 Active NebulizerIndicatio ns:COPD exacerbation (HC) Nebulizer, disposable neb kit x 4, reuseable neb kit x 1, mask x 1, filters x 1. Frequency of use: daily; Length of need: 99 months 1 Each 2 Active albuterol (PROVENTIL) 0.083 % neb solutionIndication s:Cough Inhale 3 mL (2.5 mg) via a nebulizer every 2 hours if needed for Shortness Of Breath or Wheezing 1st choice. 180 mL 05/05/2022 9:31 AM CDT 2 Active rx ondansetron (ZOFRAN ODT) 4 mg orally disintegrating tablet (ED DC MED)Indications:Na usea and vomiting, unspecified vomiting type Place 1 Tablet (4 mg) on the tongue every 8 hours if needed (nausea and vomiting). 4 Tablet 5 Active acetaminophen (TYLENOL EXTRA STRGTH) 500 mg tablet Take 1,000 mg by mouth at bedtime. 4 Active calcium carbonate-vitamin D3, 600 mg-400 unit, 600 mg-10 mcg (400 unit) tablet Take 1 Tablet by mouth once daily. 4 Active carvediloL (COREG) 12.5 mg tablet Take 12.5 mg by mouth two times daily with meals. 4 Active diclofenac topical (VOLTAREN) 1 % gel Apply 2 g topically to affected area(s) 4 times daily if needed. Apply 2 g topically 4 (four) times a day. Apply to back pain. 4 Active Trelegy Ellipta 200-62.5-25 mcg inhaler Inhale 1 Puff by mouth once daily. Active loperamide (IMODIUM) 2 mg capsule Take 2 mg by mouth 4 times daily if needed. 5 Active nitroglycerin (NITROSTAT) 0.[address] 0.4 mg under the tongue every 5 minutes if needed. 4 Active torsemide 40 mg tab Take 40 mg by mouth two times daily. 4 Active albuterol HFA (PRO-AIR; VENTOLIN; PROVENTIL) 90 mcg/actuation inhaler Inhale 2 Puffs by mouth every 4 hours if needed. 4 Active enalapril (VASOTEC) 20 mg tablet Take 20 mg by mouth two times daily. 4 025 Active potassium chloride (K-TAB) 20 mEq extended-release tablet Take 20 mEq by mouth two times daily with meals. Active warfarin (COUMADIN) 2.5 mg tabletIndications: Paroxysmal atrial fibrillation (HC) Take 1.25 mg on Tuesday and Tuesday, and 2.5 mg ROW. INR goal 2-3. 5 Active Active Problems Problem Noted Date Diagnosed Date COLLIN (acute kidney injury) 11/23/2024 Rhabdomyolysis 11/23/2024 Transaminitis 11/23/2024 History of left breast cancer 11/23/2024 Acute cystitis without hematuria 11/23/2024 Elevated troponin 05/03/2022 Leukocytosis 05/03/2022 Hypokalemia 04/27/2022 H/O mechanical aortic valve replacement 04/25/20 22 Current use of assisted anticoagulation 022 Chronic heart failure 04/25/2022 Viral upper respiratory tract infection 04/25/20 22 Weakness 04/25/2022 Morbid obesity 06/01/2018 Presence of cardiac pacemaker 04/13/2018 Paroxysmal atrial fibrillation 10/19/2017 Chronic renal failure, stage 3 (moderate) 2016 CAD (coronary artery disease) 04/29/2017 Overview (04/29/2017): Stent placement 20 years ago Atrial flutter 04/27/2017 COPD exacerbation 04/26/2017 Murmur 04/26/2017 Warfarin anticoagulation 04/26/2017 Obstructive sleep apnea syndrome 03/09/2013 HTN (hypertension) Resolved Problems Problem Noted Date Diagnosed Date Resolved Date Chronic renal impairment, stage 2 (mild) 04/29/2017 04/29/2017 Sinus tachycardia 04/28/2017 04/29/2017 Impaired renal function 04/02 Acute AZ 04/29/2017 Overview (04/26/2017): 20 yrs ago- stent placement HTN (hypertension) 7 Encounters Date Type Department Care Team Description 01/01/2025 Office Visit [facility] [address] [facility] [address] [place] [address] Thong Morales MD Telehealth ([facility]) 12/06/2024 Lab Requisition [facility] [phone] Ermelinda Vicente NP 12/03/2024 Lab Requisition [facility] [phone] Johnathan Lopez MD 11/23/2024 2:32 PM BABYSITTER - 11/28/2024 12:58 PM BABYSITTER Hospital Encounter [facility] [address] [place] [address] Yi Galeas, TRISTIAN Quintanilla, Yandy Estes, Shaan Minor, DO Leach, Alexis Reid, CHELSEY Yee, Shalom Flores, DO Aracelis Simms, MD Lee Hernandez, Padmini Arias MD Weakness (Primary Dx); 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); COLLIN (acute kidney injury); Transaminitis; Non-traumatic rhabdomyolysis; Paroxysmal atrial fibrillation (HC); Other problems related to social environment Discharge Disposition: Alf Facility 11/23/2024 Travel 11/20/2024 7:54 PM BABYSITTER - 11/20/2024 11:47 PM BABYSITTER Emergency [facility] [address] [place] [address] Tanvir Rodriguez MD Malignant neoplasm of left female breast, unspecified estrogen receptor status, unspecified site of breast (HC) (Primary Dx); Chronic obstructive pulmonary disease, unspecified COPD type (HC); Nausea and vomiting, unspecified vomiting type Discharge Disposition: Home Self Care 11/20/2024 Travel from Last 3 Months Family History Medical History Relation Name Comments Cancer Brother 1 Cancer Brother 2 Heart attack Father Stroke Mother Lung disease Sister Relation Name Status Comments Brother 1 Brother 2 Father Mother Sister Son MVA Social History Tobacco Use Types Packs/Day Years Used Date Smoking Tobacco: Former Cigarettes Smokeless Tobacco: Never Comments:quit ~1984 Alcohol Use Standard Drinks/Week Comments Yes 7 (1 standard drink = 0.6 oz pur e alcohol) Social Connections Answer Date Recorded Do you often feel lonely or isolated from those around you? 4 11/23/2024 Financial Resource Strain Answer Date R ecorded Difficulty of Paying Living Expenses 3 02/10/2024 Difficulty of Paying Living Expenses Not on file 02/10/2024 Food Insecurity Answer Date Recorded Do you worry your food will run out before you are able to buy more? 1 11/23/2024 Transportation Needs Answer Date Record ed Does lack of transportation keep you from medica l appointments? 1 11/23/2024 Does lack of transportation keep you from work, meetings or getting things that you need? 1 11/23/2024 Housing Stability Answer Date Recorded What is your housing situation today? 1 11/23/2024 Interpersonal Safety Answer Date Record ed Are you being hit, kicked, p ushed or yelled at (see row info)? No 11/23/2024 Interpersonal Safety Abuse 12 - 18 Not on file 11/23/2024 Interpersonal Safety Ambulatory Vulnerability No t on file 11/23/2024 Utilities Answer Date Recorded Do you have trouble paying f or utilities (for example, heat, electricity, water, phone)? 1 11/23/2024 Comments No Sex and Gender Information Value Date Recorded Sex Assigned at Not on file Legal Sex Female 3:31 PM BABYSITTER Gender Identity Not on file Sexual Orientation Not on file Occupation Industry Job Start Date Job End Date retired Not on file Not on file Not on file Obstetrics History Last Filed Vital Signs Vital Sign Reading Time Taken Comments Blood Pressure 164/79 11/28/2024 11:29 AM BABYSITTER Pulse 73 11/28/2024 11:29 AM BABYSITTER Temperature 37.4 C (99.4 F) 11/28/2024 11:29 AM BABYSITTER Respiratory Rate 16 11/28/2024 11:2 9 AM BABYSITTER Oxygen Saturation 97% 11/28/2024 11: 29 AM BABYSITTER Inhaled Oxygen Concentration - - Weight 120.7 kg (266 lb 3.2 oz) 11/28/2024 7:03 AM BABYSITTER Height 167.6 cm (5' 6) 11/23/2024 2:11 PM BABYSITTER Body Mass Index 42.97 11/23/2024 2:11 PM BABYSITTER Plan of Treatment Health Maintenance Due Date Last Done Comments Tdap 1950 Depression screening for age 12+ 1951 Pneumococcal series for age 50+ (1 of 2 - PCV) 1958 Zoster (shingles) series for age 50+ (1 of 2) 1958 Tetanus booster 1959 DEXA/DXA scan for age 65+ 2004 Medicare Wellness for age 65+ 2004 RSV vaccine for adults or (1 - 1-dose 75+ series) 2014 BMI (ht and wt on same day) for age 18+ 04/26/2018 04/26/2017 Influenza for age 65+ 07/01/2024 COVID-19 vaccine series ( season) 2024 09/05/2024, 12/29/2023, 12/27/2022, Additional history exists Procedures Procedure Name Priority Date/Time Associated Diagnosis Comments BASIC METABOLIC PANEL Routine 12/11/2024 8:13 AM BABYSITTER Essential (primary) hypertension HEPATIC FUNCTION PANEL Routine 12/04/2024 7:50 AM BABYSITTER Rhabdomyolysis Dehydration BASIC METABOLIC PANEL Routine 12/04/2024 7:50 AM BABYSITTER Rhabdomyolysis Dehydration CK TOTAL Routine 12/04/2024 7:50 AM BABYSITTER Rhabdomyolysis Dehydration COVID-19 MOLECULAR Today 11/28/2024 10 :55 AM BABYSITTER CREATININE Early AM 11/28/2024 5:42 AM BABYSITTER SODIUM Early AM 11/28/2024 5:42 AM BABYSITTER POTASSIUM Early AM 11/28/2024 5:42 AM BABYSITTER MAGNESIUM Early AM 11/28/2024 5:42 AM BABYSITTER PROTIME-INR Early AM 11/28/2024 5:42 AM BABYSITTER CK TOTAL Early AM 11/27/2024 5:47 AM BABYSITTER AST (SGOT) Early AM 11/27/2024 5:47 AM BABYSITTER ALT (SGPT) Early AM 11/27/2024 5:47 AM BABYSITTER CREATININE Early AM 11/27/2024 5:47 AM BABYSITTER SODIUM Early AM 11/27/2024 5:47 AM BABYSITTER POTASSIUM Early AM 11/27/2024 5:47 AM BABYSITTER MAGNESIUM Early AM 11/27/2024 5:47 AM BABYSITTER PROTIME-INR Early AM 11/27/2024 5:47 AM BABYSITTER HEPATIC FUNCTION PANEL Early AM 11/26/2024 6:27 AM BABYSITTER CK TOTAL Early AM 11/26/2024 6:27 AM BABYSITTER CREATININE Early AM 11/26/2024 6:27 AM BABYSITTER SODIUM Early AM 11/26/2024 6:27 AM BABYSITTER POTASSIUM Early AM 11/26/2024 6:27 AM BABYSITTER MAGNESIUM Early AM 11/26/2024 6:27 AM BABYSITTER PROTIME-INR Early AM 11/26/2024 6:27 AM BABYSITTER MAGNESIUM Early AM 11/25/2024 6:48 AM BABYSITTER HEPATIC FUNCTION PANEL Early AM 11/25/2024 6:48 AM BABYSITTER CK TOTAL Early AM 11/25/2024 6:48 AM BABYSITTER CREATININE Early AM 11/25/2024 6:48 AM BABYSITTER POTASSIUM Early AM 11/25/2024 6:48 AM BABYSITTER SODIUM Early AM 11/25/2024 6:48 AM BABYSITTER PROTIME-INR Early AM 11/25/2024 6:48 AM BABYSITTER MAGNESIUM Timed 11/24/2024 10:45 PM BABYSITTER MAGNESIUM Timed 11/24/2024 7:39 AM BABYSITTER PROTIME-INR Early AM 11/24/2024 7:39 AM BABYSITTER PLATELET COUNT Early AM 11/24/2024 7:39 AM BABYSITTER CK TOTAL Early AM 11/24/2024 7:39 AM BABYSITTER HEPATIC FUNCTION PANEL Early AM 11/24/2024 7:39 AM BABYSITTER CREATININE Early AM 11/24/2024 7:39 AM BABYSITTER POTASSIUM Early AM 11/24/2024 7:39 AM BABYSITTER SODIUM Early AM 11/24/2024 7:39 AM BABYSITTER PROTIME-INR STAT 11/23/2024 8:29 PM BABYSITTER URINALYSIS MICROSCOPIC STAT 11/23/2024 7:02 PM BABYSITTER URINE CULTURE STAT 11/23/2024 7:02 PM BABYSITTER UA W/ SEDIMENT EXAM REFLEXED PER CRITERIA STAT 11/23/2024 7:02 PM BABYSITTER US ABDOMEN LIMITED RUQ STAT 11/23/2024 4:14 PM BABYSITTER RED CELL MORPHOLOGY STAT 11/23/2024 2 :55 PM BABYSITTER PLATELET ESTIMATE STAT 11/23/2024 2:5 5 PM BABYSITTER MANUAL DIFFERENTIAL STAT 11/23/2024 2 :55 PM BABYSITTER CBC WITH AUTO DIFFERENTIAL STAT 11/23/2024 2:55 PM BABYSITTER CBC WITH AUTO DIFFERENTIAL STAT 11/23/2024 2:55 PM BABYSITTER CK TOTAL CECI 11/23/2024 2:50 PM BABYSITTER MAGNESIUM STAT 11/23/2024 2:50 PM BABYSITTER LACTATE VENOUS Today 11/23/2024 2:50 PM BABYSITTER LIPASE STAT 11/23/2024 2:50 PM BABYSITTER HEPATIC FUNCTION PANEL STAT 11/23/2024 2:50 PM BABYSITTER BASIC METABOLIC PANEL STAT 11/23/2024 2:50 PM BABYSITTER TROPONIN T (HS) ONE TIME Timed 11/20/2024 10:[address] ABDOMEN PELVIS W STAT 11/20/2024 1 0:[address] CHEST PE STUDY STAT 11/20/2024 10: 18 PM BABYSITTER PRO-BNP CECI 11/20/2024 8:29 PM BABYSITTER CBC WITH AUTO DIFFERENTIAL STAT 11/20/2024 8:29 PM BABYSITTER LACTATE VENOUS Today 11/20/2024 8:29 PM BABYSITTER BLOOD GAS,VENOUS STAT 11/20/2024 8:29 PM BABYSITTER TROPONIN T (HS) ACUTE W/2HR REFLEX STAT 11/20/2024 8:29 PM BABYSITTER LIPASE STAT 11/20/2024 8:29 PM BABYSITTER COMP METABOLIC PANEL STAT 11/20/2024 8:29 PM BABYSITTER D-DIMER,QUANTITATIVE STAT 11/20/2024 8:29 PM BABYSITTER PROTIME-INR STAT 11/20/2024 8:29 PM BABYSITTER CBC WITH AUTO DIFFERENTIAL STAT 11/20/2024 8:29 PM BABYSITTER EKG 12 LEAD STAT 11/20/2024 8:13 PM BABYSITTER COVID-19 MOLECULAR Today 11/20/2024 8: 02 PM BABYSITTER INFLUENZA A/B PCR STAT 11/20/2024 8:0 2 PM BABYSITTER from Last 3 Months Results * (ABNORMAL) BASIC METABOLIC PANEL (12/11/2024 8:13 AM BABYSITTER) Only the most recent of3 resultswithin the time period is included. SODIUM 145 136 - 145 mmol/L 12/11/2024 9:36 AM [facility] POTASSIUM 4.2 3.5 - 5.1 mmol/L 12/11/2024 9:36 AM [facility] CHLORIDE 105 98 - 107 mmol/L 12/11/2024 9:36 AM [facility] CO2,TOTAL 30(H) 22 - 29 mmol/L 12/11/2024 9:36 AM [facility] ANION GAP 10 5 - 18 12/11/2024 9:36 AM [facility] GLUCOSE 86 70 - 99 mg/dL 12/11/2024 9:36 AM [facility] CALCIUM 9.1 8.8 - 10.4 mg/dL 12/11/2024 9:36 AM [facility] Comment: Reference ranges for this test were updated on 09/04/2024 to reflect our healthy population more accurately. Reference range changes are not retroactively applied to results, but previous results using the same methodology can be interpreted in the context of the new reference range. BUN 20 8 - 23 mg/dL 12/11/2024 9:36 AM [facility] CREATININE 1.18(H) 0.50 - 0.90 mg/dL 12/11/2024 9:36 AM [facility] BUN/CREAT RATIO 17 10 - 20 9:36 AM [facility] eGFR 45(L) >90 mL/min/1. 73m2 12/11/2024 9:36 AM [facility] Comment:As of 2022, eG FR is calculated by the CKD-EPI creatinine equation without race adjustment. eGFR can be influenced by muscle mass, exercise, and diet. The reported eGFR is an estimation only and is only applicable if the renal function is stable. Blood BLOOD SPECIMEN / Unknown Venipuncture / Unknown 12/11/2024 8:13 AM BABYSITTER 12/11/2024 9:09 AM BABYSITTER us Ermelinda Vicente PORT CDL A DRIVER CHEMISTRY Final Resul t [facility] [address] [place] [address] * CK TOTAL (12/04/2024 7:50 AM BABYSITTER) Only the most recent of6 resultswithin the time period is included. CK,TOTAL 38 26 - 192 IU/L 12/04/2024 9:44 AM [facility] Blood BLOOD SPECIMEN / Unknown Venipuncture / Unknown 12/04/2024 7:50 AM BABYSITTER 12/04/2024 9:15 AM BABYSITTER us Johnathan Lopez MD CHEMISTRY Final Result Performing Organization Address City/[facility]/ZIP Co de Phone Number [facility] [address] [place] [address] * (ABNORMAL) HEPATIC FUNCTION PANEL (12/04/2024 7:50 AM BABYSITTER) Only the most recent of5 resultswithin the time period is included. ALBUMIN 3.6(L) 4.0 - 4.9 g/dL 12/04/2024 9:44 AM [facility] PROTEIN,TOTAL 6.4 6.0 - 8.0 g/dL 12/04/2024 9:44 AM [facility] BILIRUBIN,TOTAL 0.6 0.0 - 1.2 mg/dL 12/04/2024 9:44 AM [facility] BILIRUBIN,DIRECT 0.3(H) 0.0 - 0.2 mg/dL 12/04/2024 9:44 AM [facility] BILIRUBIN,INDIRE CT 0.3 0.2 - 0.8 mg/dL 12/04/2024 9:44 AM [facility] ALK PHOSPHATASE 118(H) 35 - 104 IU/L 12/04/2024 9:44 AM [facility] ALT (SGPT) 46(H) 10 - 35 IU/L 12/04/2024 9:44 AM [facility] AST (SGOT) 34 10 - 35 IU/L 12/04/2024 9:44 AM [facility] Blood BLOOD SPECIMEN / Unknown Venipuncture / Unknown 12/04/2024 7:50 AM BABYSITTER 12/04/2024 9:15 AM BABYSITTER Johnathan Lopez MD CHEMISTRY Final Result Performing Organization Address [facility] Co de Phone Number [facility] [address] [place] [address] * COVID-19 MOLECULAR (11/28/2024 10:55 AM BABYSITTER) Only the most recent of2 resultswithin the time period is included. COVID 19 [place] MOLECULAR Not detected Not detected 11/28/2024 12:20 PM [facility] TESTING LABORATORY [facility] 11/28/2024 12:20 PM [facility] Comment:Specimen submitted t o [facility] for testing. Other SPECIMEN FROM NASOPHARYNGEAL STRUCTURE / Unknown Non-Blood / Unknown 11/28/2024 10:55 AM BABYSITTER 11/28/2024 12:20 PM BABYSITTER Alexis Leach NP MICROBIOLOGY Fin al Result Performing Organization Address City/[facility]/ZIP Co de Phone Number [facility] [address] [place] [address] * SODIUM (11/28/2024 5:42 AM BABYSITTER) Only the most recent of5 resultswithin the time period is included. SODIUM 144 136 - 145 mmol/L 11/28/2024 6:46 AM [facility] Blood BLOOD SPECIMEN / Unknown Venipuncture / Unknown 11/28/2024 5:42 AM BABYSITTER 11/28/2024 6:25 AM BABYSITTER Alexis Leach NP CHEMISTRY Fin al Result Performing Organization Address City/[facility]/ZIP Co de Phone Number [facility] [address] [place] [address] * POTASSIUM (11/28/2024 5:42 AM BABYSITTER) Only the most recent of5 resultswithin the time period is included. POTASSIUM 4.8 3.5 - 5.1 mmol/L 11/28/2024 6:46 AM BABYSITTER [facility] Blood BLOOD SPECIMEN / Unknown Venipuncture / Unknown 11/28/2024 5:42 AM BABYSITTER 11/28/2024 6:25 AM BABYSITTER Michelle Simms MD CHEMISTRY Fin al Result Performing Organization Address [facility] de Phone Number [facility] [address] [place] [address] * (ABNORMAL) CREATININE (11/28/2024 5:42 AM BABYSITTER) Only the most recent of5 resultswithin the time period is included. eGFR 59(L) >90 mL/min/1.7 3m2 11/28/2024 6:46 AM BABYSITTER [facility] Comment:As of 2022, eG FR is calculated by the CKD-EPI creatinine equation without race adjustment. eGFR can be influenced by muscle mass, exercise, and diet. The reported eGFR is an estimation only and is only applicable if the renal function is stable. CREATININE 0.95(H) 0.50 - 0.90 mg/dL 11/28/2024 6:46 AM BABYSITTER [facility] Blood BLOOD SPECIMEN / Unknown Venipuncture / Unknown 11/28/2024 5:42 AM BABYSITTER 11/28/2024 6:25 AM BABYSITTER Alexis Leach NP CHEMISTRY Fin al Result Performing Organization Address City/[facility] Co de Phone Number [facility] [address] [place] [address] * (ABNORMAL) PROTIME-INR (11/28/2024 5:42 AM BABYSITTER) Only the most recent of7 resultswithin the time period is included. INR 3.0(H) <1.3 11/28/2024 6:33 AM BABYSITTER [facility] PROTIME 34.4(H) 10.6 - 12.4 sec 11/28/2024 6:33 AM [facility] Blood BLOOD SPECIMEN / Unknown Venipuncture / Unknown 11/28/2024 5:42 AM BABYSITTER 11/28/2024 6:24 AM BABYSITTER Narrative [facility] - 11/28/2024 6:33 AM BABYSITTER Therapeutic Range 2.0-3.0 for most anticoagulated patients 2.5-3.5 or 4.0 for high risk patients The INR is only used for patients on stable oral anticoagulant therapy. It makes no significant contribution to the diagnosis or treatment of patients whose Protime is prolonged for other reasons. INR results are increased when heparin levels exceed 1.0 U/mL, which corresponds to an aPTT >125 seconds if the patient is on UFH. Alexis Leach NP HEMATOLOGY Fin al Result [facility] [address] [place] [id number] * MAGNESIUM (11/28/2024 5:42 AM BABYSITTER) Only the most recent of7 resultswithin the time period is included. MAGNESIUM 2.3 1.6 - 2.4 mg/dL 11/28/2024 6:46 AM [facility] Blood BLOOD SPECIMEN / Unknown Venipuncture / Unknown 11/28/2024 5:42 AM BABYSITTER 11/28/2024 6:25 AM BABYSITTER Michelle Simms MD CHEMISTRY Fin al Result [facility] [address] [place] [address] * (ABNORMAL) ALT (SGPT) (11/27/2024 5:47 AM BABYSITTER) ALT (SGPT) 123(H) 10 - 35 IU/L 11/27/2024 7:11 AM BABYSITTER [facility] Blood BLOOD SPECIMEN / Unknown Venipuncture / Unknown 11/27/2024 5:47 AM BABYSITTER 11/27/2024 6:51 AM BABYSITTER us Alexis Leach PORT CDL A DRIVER CHEMISTRY Fin al Result [facility] [address] [place] [address] * (ABNORMAL) AST (SGOT) (11/27/2024 5:47 AM BABYSITTER) AST (SGOT) 179(H) 10 - 35 IU/L 11/27/2024 7:11 AM BABYSITTER [facility] Blood BLOOD SPECIMEN / Unknown Venipuncture / Unknown 11/27/2024 5:47 AM BABYSITTER 11/27/2024 6:51 AM BABYSITTER us Alexis Leach PORT CDL A DRIVER CHEMISTRY Fin al Result [facility] [address] [place] [address] * PLATELET COUNT (11/24/2024 7:39 AM BABYSITTER) PLATELET COUNT 154 140 - 440 thou/cu mm 11/24/2024 8:16 AM BABYSITTER [facility] MPV 11.0 6.5 - 11.0 fL 11/24/2024 8:16 AM BABYSITTER [facility] Blood BLOOD SPECIMEN / Unknown Venipuncture / Unknown 11/24/2024 7:39 AM BABYSITTER 11/24/2024 8:08 AM BABYSITTER us Alexis Leach NP HEMATOLOGY Fin al Result Performing Organization Address City/[facility]/ZIP Co de Phone Number [facility] [address] [place] [address] * (ABNORMAL) URINALYSIS MICROSCOPIC (11/23/2024 7:02 PM BABYSITTER) RBC 0-2 0-2, None Seen /HPF 11/23/2024 7:36 PM BABYSITTER [facility] WBC 11-25(A) 0-2, 3-5, None Seen /HPF 11/23/2024 7:36 PM BABYSITTER [facility] BACTERIA Many(A) None Seen, Rare, Few Bacteria/ HPF 11/23/2024 7:36 PM BABYSITTER [facility] EPITHELIAL CELLS Few None Seen, Few Epi/HPF 11/23/2024 7:36 PM BABYSITTER [facility] CALCIUM OXALATE CRYSTALS Present(A) (none) 11/23/2024 7:36 PM BABYSITTER [facility] Urine URINE SPECIMEN / Unknown Non-Blood / Unknown 11/23/2024 7:02 PM BABYSITTER 11/23/2024 7:07 PM BABYSITTER us Yi Galeas PA URINE Final Resul t Performing Organization Address [facility] Co de Phone Number [facility] [address] [place] [address] * URINE CULTURE (11/23/2024 7:02 PM BABYSITTER) CULTURE 10-50,000 CFU/mL of multiple organisms, probable contaminants 11/24/2024 1:36 PM BABYSITTER [facility] Urine URINE SPECIMEN / Unknown Non-Blood / Unknown 11/23/2024 7:02 PM BABYSITTER 11/23/2024 7:04 PM BABYSITTER Alexis Leach NP MICROBIOLOGY Fin al Result [facility] [address] [place] [address], [place] * (ABNORMAL) UA W/ SEDIMENT EXAM REFLEXED PER CRITERIA (11/23/2024 7:02 PM BABYSITTER) COLOR Yellow Yellow Color 11/23/2024 7:36 PM [facility] CLARITY Clear Clear Clarity 11/23/2024 7:36 PM [facility] SPECIFIC GRAVITY,URINE 1.010 1.010, 1.015, 1.020, 1.025 11/23/2024 7:36 PM [facility] PH,URINE 5.5 6.0, 7.0, 8.0, 5.5, 6.5, 7.5, 8.5 11/23/2024 7:36 PM [facility] UROBILINOGEN, QUALITATIVE Normal Normal EU/dl 11/23/2024 7:36 PM [facility] PROTEIN, URINE Negative Negative mg/dL 11/23/2024 7:36 PM [facility] GLUCOSE, URINE Negative Negative mg/dL 11/23/2024 7:36 PM [facility] KETONES,URINE Negative Negative mg/dL 11/23/2024 7:36 PM [facility] BILIRUBIN,URI NE Negative Negative 11/23/2024 7:36 PM [facility] OCCULT BLOOD,URINE Negative Negative 11/23/2024 7:36 PM [facility] NITRITE Negative Negative 11/23/2024 7:36 PM [facility] LEUKOCYTE ESTERASE Small(A) Negative 11/23/2024 7:36 PM [facility] Urine URINE SPECIMEN / Unknown Non-Blood / Unknown 11/23/2024 7:02 PM BABYSITTER 11/23/2024 7:07 PM BABYSITTER us Yi LUBIN URINE Final Resul t [facility] [address] [place] [address] * US ABDOMEN LIMITED RUQ (11/23/2024 4:14 PM BABYSITTER) Anatomical Region Laterality Modality Abdomen, LIVER Ultrasound 11/23/2024 4:42 PM BABYSITTER Impressions 11/23/2024 4:42 PM BABYSITTER Unremarkable right upper quadrant ultrasound. Dictated by Dangelo Gregorio MD @ 11/23/2024 4:42:17 PM (Electronically Signed) Narrative 11/23/2024 4:42 PM BABYSITTER For Patients: As a result of the Cures Act, medical imaging exams and procedure reports are released immediately into your electronic medical record. You may view this report before your referring provider. If you have questions, please contact your health care provider. INDICATION: Right upper quadrant abdomen pain. TECHNIQUE: Ultrasound abdomen limited. Sonographic images of the right upper quadrant were obtained using leonard-scale and color Doppler images. COMPARISON: None. FINDINGS: Liver: Normal in size and echotexture. No suspicious masses. No intrahepatic biliary dilatation. Gallbladder: No stones or sludge. Normal wall thickness. No pericholecystic fluid. Common bile duct: 3 mm. Pancreas: Partially visualized, unremarkable Right kidney: Normal in size. Normal echotexture and cortex. No suspicious masses, stones, or hydronephrosis. Vasculature: Proximal abdominal aorta and IVC are unremarkable. Procedure Note Dangelo Gregorio MD - 11/23/2024 For Patients: As a result of the Cures Act, medical imagingexams and procedure reports are released immediately into your electronicmedical record. You may view this report before your referring provider.If you have questions, please contact your health care provider. INDICATION: Right upper quadrant abdomen pain. TECHNIQUE: Ultrasound abdomen limited. Sonographic images of the right upperquadrant were obtained using leonard-scale and color Doppler images. COMPARISON: None. FINDINGS: Liver: Normal in size and echotexture. No suspicious masses. Nointrahepatic biliary dilatation. Gallbladder: No stones or sludge. Normal wall thickness. Nopericholecystic fluid. Common bile duct: 3 mm. Pancreas: Partially visualized, unremarkable Right kidney: Normal in size. Normal echotexture and cortex. Nosuspicious masses, stones, or hydronephrosis. Vasculature: Proximal abdominal aorta and IVC are unremarkable. IMPRESSION: Unremarkable right upper quadrant ultrasound. Dictated by Dangelo Gregorio MD @ 11/23/2024 4:42:17 PM (Electronically Signed) us Yi LUBIN US Final Resul t * (ABNORMAL) CBC WITH AUTO DIFFERENTIAL (11/23/2024 2:55 PM BABYSITTER) Only the most recent of2 resultswithin the time period is included. WHITE BLOOD COUNT 9.0 4.5 - 11.0 thou/cu mm 11/23/2024 3:28 PM [facility] RED BLOOD COUNT 4.16 4.00 - 5.20 mil/cu mm 11/23/2024 3:28 PM [facility] HEMOGLOBIN 12.9 12.0 - 16.0 g/dL 11/23/2024 3:28 PM [facility] HEMATOCRIT 38.3 33.0 - 51.0 % 11/23/2024 3:28 PM [facility] MCV 92 80 - 100 fL 11/23/2024 3:28 PM [facility] MCH 31.0 26.0 - 34.0 pg 11/23/2024 3:28 PM [facility] MCHC 33.7 32.0 - 36.0 g/dL 11/23/2024 3:28 PM [facility] RDW 15.7(H) 11.5 - 15.5 % 11/23/2024 3:28 PM [facility] PLATELET COUNT 151 140 - 440 thou/cu mm 11/23/2024 3:28 PM [facility] MPV 10.7 6.5 - 11.0 fL 11/23/2024 3:28 PM [facility] Blood BLOOD SPECIMEN / Unknown Capillary / Unknown 11/23/2024 2:55 PM BABYSITTER 11/23/2024 2:58 PM BABYSITTER us Yi LUBIN HEMATOLOGY Final Resul t [facility] [address] [place] [id number] * (ABNORMAL) RED CELL MORPHOLOGY (11/23/2024 2:55 PM BABYSITTER) POLYCHROMASIA Slight 11/23/2024 3:28 PM BABYSITTER [facility] RBC COMMENT Present(A) RBC morphology appears normal, RBC morphology within normal limits for newborns. 11/23/2024 3:28 PM BABYSITTER [facility] LARGE PLATELETS Present 3:28 PM BABYSITTER [facility] Blood BLOOD SPECIMEN / Unknown Capillary / Unknown 11/23/2024 2:55 PM BABYSITTER 11/23/2024 2:58 PM BABYSITTER us Yi LUBIN HEMATOLOGY Final Resul t [facility] [address] [place] [address] * PLATELET ESTIMATE (11/23/2024 2:55 PM BABYSITTER) Pathologist [facility] PLATELET ESTIMATE Adequate Adequate, No estimate 11/23/2024 3:28 PM BABYSITTER [facility] Blood BLOOD SPECIMEN / Unknown Capillary / Unknown 11/23/2024 2:55 PM BABYSITTER 11/23/2024 2:58 PM BABYSITTER us Yi LUBIN HEMATOLOGY Final Resul t [facility] [address] [place] [address] * (ABNORMAL) MANUAL DIFFERENTIAL (11/23/2024 2:55 PM BABYSITTER) Pathologist [facility] % NEUTROPHILS 61.0 % 11/23/2024 3:28 PM [facility] % LYMPHOCYTES 33.0 % 11/23/2024 3:28 PM [facility] % MONOCYTES 4.0 % 11/23/2024 3:28 PM [facility] % EOSINOPHILS 2.0 % 11/23/2024 3:28 PM [facility] % BASOPHILS 0.0 % 11/23/2024 3:28 PM [facility] NEUTROPHILS ABSOLUTE 5.5 1.7 - 7.0 thou/cu mm 11/23/2024 3:28 PM BABYSITTER [facility] LYMPHOCYTES ABSOLUTE 3.0(H) 0.9 - 2.9 thou/cu mm 11/23/2024 3:28 PM BABYSITTER [facility] MONOCYTES ABSOLUTE 0.4 <0.9 thou/cu mm 11/23/2024 3:28 PM BABYSITTER [facility] EOSINOPHILS ABSOLUTE 0.2 <0.5 thou/cu mm 11/23/2024 3:28 PM BABYSITTER [facility] BASOPHILS ABSOLUTE 0.0 <0.3 thou/cu mm 11/23/2024 3:28 PM [facility] Blood BLOOD SPECIMEN / Unknown Capillary / Unknown 11/23/2024 2:55 PM BABYSITTER 11/23/2024 2:58 PM BABYSITTER us Yi LUBIN HEMATOLOGY Final Resul t Performing Organization Address City/[facility]/ZIP Co de Phone Number [facility] [address] [place] [address] * LACTATE VENOUS (11/23/2024 2:50 PM BABYSITTER) Only the most recent of2 resultswithin the time period is included. [facility] LACTATE,VENOUS 1.7 0.5 - 2.0 mmol/L 11/23/2024 3:14 PM BABYSITTER [facility] Blood BLOOD SPECIMEN / Unknown Butterfly / Unknown 11/23/2024 2:50 PM BABYSITTER 11/23/2024 2:53 PM BABYSITTER us Yi LUBIN CHEMISTRY Final Resul t Performing Organization Address [facility]/ZIP Co de Phone Number [facility] [address] [place] [address] * LIPASE (11/23/2024 2:50 PM BABYSITTER) Only the most recent of2 resultswithin the time period is included. Pathologist [facility] LIPASE 43.0 13.0 - 60.0 IU/L 11/23/2024 3:14 PM BABYSITTER [facility] Blood BLOOD SPECIMEN / Unknown Butterfly / Unknown 11/23/2024 2:50 PM BABYSITTER 11/23/2024 2:53 PM BABYSITTER us Yi LUBIN CHEMISTRY Final Resul t Performing Organization Address [facility]/ZIP Co de Phone Number [facility] [address] [place] [address] * (ABNORMAL) TROPONIN T (HS) ONE TIME (11/20/2024 10:33 PM BABYSITTER) TROPONIN T HS 25(H) 6-10 ng/L ng/L 11/20/2024 11:00 PM BABYSITTER [facility] Blood BLOOD SPECIMEN / Unknown Butterfly / Unknown 11/20/2024 10:33 PM BABYSITTER 11/20/2024 10:36 PM BABYSITTER us Tanvir Rodriguez MD CHEMISTRY Final Res ult Performing Organization Address [facility]/ZIP Co de Phone Number [facility] [address] [place] [address] * CT ABDOMEN PELVIS W (11/20/2024 10:19 PM BABYSITTER) Anatomical Region Laterality Modality Abdomen, Pelvis, AORTA, LIVER, SPLEEN Computed Tomography 11/20/2024 10:2 8 PM BABYSITTER Impressions 11/20/2024 10:28 PM BABYSITTER No acute intra-abdominal/pelvic abnormality. Severe colonic diverticulosis without diverticulitis. Incidental 1.5 centimeter pancreatic head cystic lesion, likely side branch IPMN. 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 Additional chronic findings as above. Please note that all CT scans at this facility use dose modulation, iterative reconstruction, and/or weight-based dosing when appropriate to reduce radiation dose to as low as reasonably achievable. Dictated by Vj Oleary MD @ 11/20/2024 10:28:51 PM (Electronically Signed) Narrative 11/20/2024 10:28 PM BABYSITTER For Patients: As a result of the Cures Act, medical imaging exams and procedure reports are released immediately into your electronic medical record. You may view this report before your referring provider. If you have questions, please contact your health care provider. INDICATION: Abdominal pain. TECHNIQUE: CT abdomen and pelvis acquired with 100 cc Omnipaque 350 IV contrast. COMPARISON: None. FINDINGS: Lower chest: Please refer to same-day CT chest for further evaluation, including incidental left breast mass. Liver: Few scattered tiny hepatic hypodensities, too small to characterize. Normal in size and attenuation. No suspicious masses. Gallbladder and bile ducts: Unremarkable. No stones or inflammation. No biliary dilatation. Pancreas: Incidental 1.5 centimeter pancreatic head cystic lesion, likely side branch IPMN. No mass or inflammation. Spleen: Unremarkable. Normal in size. No masses. Adrenal glands: Unremarkable. No nodules. Kidneys: Left renal atrophy. Tiny cortical hypodensities, too small to characterize.. No suspicious masses, stones, or hydronephrosis. GI tract: Small hiatal hernia. Severe colonic diverticulosis. Normal in caliber. No sign of mass or inflammation. Appendix not definitely seen, however no right lower quadrant inflammatory stranding. Vasculature: Aortoiliac calcifications. Abdominal aorta is normal in caliber. Mesenteric arteries are patent. 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 Lymph nodes: No lymphadenopathy. Peritoneum/Abdominal Wall: Unremarkable. No sign of mass or infiltration. No free air or significant free fluid. Pelvis: Unremarkable. Bones: Unremarkable for age. Procedure Note Vj Oleary MD - 11/20/2024 For Patients: As a result of the Cures Act, medical imagingexams and procedure reports are released immediately into your electronicmedical record. You may view this report before your referring provider.If you have questions, please contact your health care provider. INDICATION: Abdominal pain. TECHNIQUE: CT abdomen and pelvis acquired with 100 cc Omnipaque 350 IV contrast. COMPARISON: None. FINDINGS: Lower chest: Please refer to same-day CT chest for further evaluation,including incidental left breast mass. Liver: Few scattered tiny hepatic hypodensities, too small tocharacterize. Normal in size and attenuation. No suspicious masses. Gallbladder and bile ducts: Unremarkable. No stones or inflammation. Nobiliary dilatation. Pancreas: Incidental 1.5 centimeter pancreatic head cystic lesion, likelyside branch IPMN. No mass or inflammation. Spleen: Unremarkable. Normal in size. No masses. Adrenal glands: Unremarkable. No nodules. Kidneys: Left renal atrophy. Tiny cortical hypodensities, too small tocharacterize.. No suspicious masses, stones, or hydronephrosis. GI tract: Small hiatal hernia. Severe colonic diverticulosis. Normal incaliber. No sign of mass or inflammation. Appendix not definitely seen,however no right lower quadrant inflammatory stranding. Vasculature: Aortoiliac calcifications. Abdominal aorta is normal incaliber. Mesenteric arteries are patent. Aneurysmal dilation of the leftcommon femoral artery measuring 2.5 centimeters. Lymph nodes: No lymphadenopathy. Peritoneum/Abdominal Wall: Unremarkable. No sign of mass or infiltration.No free air or significant free fluid. Pelvis: Unremarkable. Bones: Unremarkable for age. IMPRESSION: No acute intra-abdominal/pelvic abnormality. Severe colonic diverticulosis without diverticulitis. Incidental 1.5 centimeter pancreatic head cystic lesion, likely sidebranch IPMN. 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 Additional chronic findings as above. Please note that all CT scans at this facility use dose modulation,iterative reconstruction, and/or weight-based dosing when appropriate toreduce radiation dose to as low as reasonably achievable. Dictated by Vj Oleary MD @ 11/20/2024 10:28:51 PM (Electronically Signed) us Tanvir Rodriguez MD CT Final Res ult * CT CHEST PE STUDY (11/20/2024 10:18 PM BABYSITTER) Anatomical Region Laterality Modality CHEST, THORAX, HEART Computed To mography 11/20/2024 10:4 0 PM BABYSITTER Narrative 11/20/2024 10:40 PM BABYSITTER For Patients: As a result of the Century Cures Act, medical imaging exams and procedure reports are released immediately into your electronic medical record. You may view this report before your referring provider. If you have questions, please contact your health care provider. INDICATION: Chest pain, elevated D-dimer TECHNIQUE: CT chest with i.v. contrast using pulmonary angiographic technique. MIPS, coronal and sagittal reformats were obtained. CONTRAST: 100 mL Omnipaque 350 COMPARISON: None FINDINGS: Cardiovascular: Severe enlargement of the main pulmonary artery is present measuring 4 cm in maximal short axis diameter. The pulmonary arteries are unremarkable in enhancement with no evidence of acute pulmonary embolism. Mild biventricular cardiomegaly is noted. No sign of aneurysm in the thoracic aorta. There is a left cardiac pacer present with leads in the right atrium and right ventricle. The patient is status post TAVR with a Sapiens device. Severe atherosclerotic calcifications are noted in the coronary arteries. Mediastinum: No mass or adenopathy seen. Lung: Both lungs are unremarkable in appearance. Pleura and pericardium: No sign of pleural effusion seen. No significant pericardial effusion is present. Chest wall and axilla: There is a spiculated mass present within left breast measuring 1.3 x 3.4 cm with multiple enlarged left axillary lymph nodes measuring up to 2 cm. Bone: Unremarkable for age. Upper abdomen: Unremarkable. IMPRESSIONS: 1. No CT evidence of acute pulmonary emboli seen. 2. There is a spiculated mass present within left breast measuring 1.3 x 3.4 cm with multiple enlarged left axillary lymph nodes measuring up to 2 cm. Findings are highly suspicious for metastatic breast carcinoma and further assessment with biopsy is recommended. 3. Severe enlargement of the main pulmonary artery is present measuring 4 cm in maximal short axis diameter. This may be due to pulmonary hypertension or a high cardiac output state. 4. Severe atherosclerotic calcifications are noted in the coronary arteries. 5. Mild biventricular cardiomegaly is noted. The findings were discussed with Dr. Rodriguez at 10:40 PM. Dictated by Pradeep Steel MD @ 11/20/2024 10:35:34 PM Please note that all CT scans at this facility use dose modulation, iterative reconstruction, and/or weight-based dosing when appropriate to reduce radiation dose to as low as reasonably achievable. Dictated by: Pradeep Steel MD @ 11/20/2024 22:40:36 (Electronically Signed) Procedure Note Pradeep Steel MD - 11/20/2024 For Patients: As a result of the Cures Act, medical imagingexams and procedure reports are released immediately into your electronicmedical record. You may view this report before your referring provider.If you have questions, please contact your health care provider. INDICATION: Chest pain, elevated D-dimer TECHNIQUE: CT chest with i.v. contrast using pulmonary angiographictechnique. MIPS, coronal and sagittal reformats were obtained. CONTRAST: 100 mL Omnipaque 350 COMPARISON: None FINDINGS: Cardiovascular: Severe enlargement of the main pulmonary artery is presentmeasuring 4 cm in maximal short axis diameter. The pulmonary arteries areunremarkable in enhancement with no evidence of acute pulmonary embolism.Mild biventricular cardiomegaly is noted. No sign of aneurysm in thethoracic aorta. There is a left cardiac pacer present with leads in theright atrium and right ventricle. The patient is status post TAVR with aSapiens device. Severe atherosclerotic calcifications are noted in thecoronary arteries. Mediastinum: No mass or adenopathy seen. Lung: Both lungs are unremarkable in appearance. Pleura and pericardium: No sign of pleural effusion seen. No significantpericardial effusion is present. Chest wall and axilla: There is a spiculated mass present within leftbreast measuring 1.3 x 3.4 cm with multiple enlarged left axillary lymphnodes measuring up to 2 cm. Bone: Unremarkable for age. Upper abdomen: Unremarkable. IMPRESSIONS: 1. No CT evidence of acute pulmonary emboli seen. 2. There is a spiculated mass present within left breast measuring 1.3 x3.4 cm with multiple enlarged left axillary lymph nodes measuring up to 2cm. Findings are highly suspicious for metastatic breast carcinoma andfurther assessment with biopsy is recommended. 3. Severe enlargement of the main pulmonary artery is present measuring 4cm in maximal short axis diameter. This may be due to pulmonaryhypertension or a high cardiac output state. 4. Severe atherosclerotic calcifications are noted in the coronaryarteries. 5. Mild biventricular cardiomegaly is noted. The findings were discussed with Dr. Rodriguez at 10:40 PM. Dictated by Pradeep Steel MD @ 11/20/2024 10:35:34 PM Please note that all CT scans at this facility use dose modulation,iterative reconstruction, and/or weight-based dosing when appropriate toreduce radiation dose to as low as reasonably achievable. Dictated by: Praedep Steel MD @ 11/20/2024 22:40:36 (Electronically Signed) us Tanvir Rodriguez MD CT Final Res ult * (ABNORMAL) TROPONIN T (HS) ACUTE W/2HR REFLEX (11/20/2024 8:29 PM BABYSITTER) TROPONIN T HS 28(H) 6-10 ng/L ng/L 11/20/2024 9:00 PM [facility] Blood BLOOD SPECIMEN / Unknown Butterfly / Unknown 11/20/2024 8:29 PM BABYSITTER 11/20/2024 8:32 PM BABYSITTER [facility] - 11/20/2024 9:00 PM [facility] hs-cTnT (Elecsys Troponin T Gen 5) concentration (s) above the sex-specific 99th percentile (16 ng/L or greater for males or 11 ng/L or greater for females) are indicative of myocardial injury. If initial hs-cTnT <=100 ng/L at presentation, a 0h/2h ABSOLUTE (ng/L) delta change (rising or falling) of >=10 ng/L suggests a significant change, whereas a 0h/2h delta change <=3 ng/L suggests no significant change. If initial hs-cTnT >100 ng/L at presentation, a 0h/2h/ RELATIVE (percent, %) delta change of 20% is suggested to distinguish patients with acute vs. chronic myocardial injury. There are multiple etiologies that can cause hs-cTnT increases above the 99th percentile (myocardial injury) other than acute myocardial infarction. Clinical context and careful clinical evaluation are critical for diagnosis and risk-stratification. The diagnosis of acute myocardial infarction requires a rising and/or falling pattern in hs-cTnT concentrations with at least one value above the sex-specific 99th percentile PLUS at least one of the following clinical criteria: ischemic symptoms, new or presumed new significant ST-T wave changes or new LBBB, development of pathological Q waves, imaging evidence of new loss of viable myocardium or new regional wall motion abnormality, or identification of intracoronary atherothrombosis or an acute angiographic culprit on coronary angiography. In appropriate low-risk patients with a non-ischemic electrocardiogram without active chest pain with a symptom onset >3-hours without recurrence, a single initial hs-cTnT<6 ng/L identifies patient with a very low risk in emergency department patient population. us Tanvir Rordiguez MD CHEMISTRY Final Res ult [facility] [address] [place] [address] * (ABNORMAL) BLOOD GAS,VENOUS (11/20/2024 8:29 PM BABYSITTER) PH, VENOUS 7.43 7.32 - 7.43 11/20/2024 8:47 PM BABYSITTER [facility] PCO2, VENOUS 46 41 - 51 mmHg 11/20/2024 8:47 PM BABYSITTER [facility] PO2, VENOUS 38 35 - 40 mmHg 11/20/2024 8:47 PM [facility] HCO3,VENOUS 31(H) 22 - 29 mmol/L 11/20/2024 8:47 PM [facility] BASE EXCESS, VENOUS, POCT 5.3(H) -2.0 - 3.0 11/20/2024 8:47 PM [facility] O2 SATURATION, VENOUS 65(L) 70 - 75 % 11/20/2024 8:47 PM [facility] Blood BLOOD SPECIMEN / Unknown Butterfly / Unknown 11/20/2024 8:29 PM BABYSITTER 11/20/2024 8:32 PM BABYSITTER us Tanvir Rodriguez MD CHEMISTRY Final Res ult Performing Organization Address [facility]/ZIP Co de Phone Number [facility] [address] [place] [address] * (ABNORMAL) D-Dimer, Quantitative (11/20/2024 8:29 PM BABYSITTER) D-DIMER,QUANTI TATIVE 1.22 See comment FEU mcg/mL 11/20/2024 8:49 PM BABYSITTER [facility] D-DIMER INTERP Abnormal( A) 11/20/2024 8:49 PM [facility] Blood BLOOD SPECIMEN / Unknown Butterfly / Unknown 11/20/2024 8:29 PM BABYSITTER 11/20/2024 8:32 PM BABYSITTER [facility] - 11/20/2024 8:49 PM BABYSITTER The cut off value for exclusion of Deep Vein Thrombosis and / or Pulmonary Embolism is 0.50 FEU mcg/mL For patients greater than 50 years of age the upper limit is age dependent and was calculated with the formula: (PATIENT AGE x 0.01) FEU mcg/mL = Upper limit of normal range Tanvir Rodriguez MD HEMATOLOGY Final Res ult Performing Organization Address [facility] Co de Phone Number [facility] [address] [place] [address] * (ABNORMAL) PRO-BNP (11/20/2024 8:29 PM BABYSITTER) [facility] PRO-BNP 4,829(H) <450 pg/mL 11/20/2024 10:05 PM BABYSITTER [facility] Blood BLOOD SPECIMEN / Unknown Butterfly / Unknown 11/20/2024 8:29 PM BABYSITTER 11/20/2024 8:32 PM BABYSITTER [facility] - 11/20/2024 10:05 PM BABYSITTER The following cut-points have been suggested for the use of proBNP for the diagnostic evaluation of heart failure (HF) in patient with acute dyspnea. Patients with eGFR >= 60 Diagnosis (rule in CHF) <50 Years Old 450 pg/mL 50 - 75 Years Old 900 pg/mL >75 Years Old 1800 pg/mL Exclusion (rule out CHF) Age Independent 300 pg/mL A cutoff of 1200 pg/mL for patients with an eGFR <60 yields a diagnostic sensitivity of 89% and specificity of 72% for acute congestive heart failure. Tanvir Rodriguez MD SEND OUTS Final Res ult [facility] [address] [place] [address] * (ABNORMAL) Comp Metabolic Panel (11/20/2024 8:29 PM [facility]) SODIUM 144 136 - 145 mmol/L 11/20/2024 9:00 PM [facility] POTASSIUM 4.0 3.5 - 5.1 mmol/L 11/20/2024 9:00 PM [facility] CHLORIDE 104 98 - 107 mmol/L 11/20/2024 9:00 PM [facility] CO2,TOTAL 26 22 - 29 mmol/L 11/20/2024 9:00 PM [facility] ANION GAP 14 5 - 18 11/20/2024 9:00 PM [facility] GLUCOSE 127(H) 70 - 99 mg/dL 11/20/2024 9:00 PM [facility] CALCIUM 9.1 8.8 - 10.4 mg/dL 11/20/2024 9:00 PM [facility] Comment: Reference ranges for this test were updated on 09/04/2024 to reflect our healthy population more accurately. Reference range changes are not retroactively applied to results, but previous results using the same methodology can be interpreted in the context of the new reference range. BUN 24(H) 8 - 23 mg/dL 11/20/2024 9:00 PM [facility] CREATININE 1.20(H) 0.50 - 0.90 mg/dL 11/20/2024 9:00 PM [facility] BUN/CREAT RATIO 20 10 - 20 9:00 PM [facility] eGFR 44(L) >90 mL/min/1. 73m2 11/20/2024 9:00 PM [facility] Comment:As of 2022, eG FR is calculated by the CKD-EPI creatinine equation without race adjustment. eGFR can be influenced by muscle mass, exercise, and diet. The reported eGFR is an estimation only and is only applicable if the renal function is stable. ALBUMIN 3.8(L) 4.0 - 4.9 g/dL 11/20/2024 9:00 PM [facility] PROTEIN,TOTAL 6.5 6.0 - 8.0 g/dL 11/20/2024 9:00 PM [facility] BILIRUBIN,TOTAL 1.2 0.0 - 1.2 mg/dL 11/20/2024 9:00 PM [facility] ALK PHOSPHATASE 106(H) 35 - 104 IU/L 11/20/2024 9:00 PM [facility] ALT (SGPT) 20 10 - 35 IU/L 11/20/2024 9:00 PM [facility] AST (SGOT) 30 10 - 35 IU/L 11/20/2024 9:00 PM [facility] Blood BLOOD SPECIMEN / Unknown Butterfly / Unknown 11/20/2024 8:29 PM BABYSITTER 11/20/2024 8:32 PM BABYSITTER us Tanvir Rodriguez MD CHEMISTRY Final Res ult Performing Organization Address City/[facility] Co de Phone Number [facility] [address] [place] [address] * EKG 12 LEAD (11/20/2024 8:13 PM BABYSITTER) Pathologist [facility] Interpretation Ventricula r-paced rhythm Abnormal ECG BEYOND NOW Ventricular Rate 64 BPM BEYOND NOW Atrial Rate 58 BPM BEYOND NOW P-R Interval ms BEYOND NOW QRS Duration 172 ms BEYOND NOW QT 460 ms BEYOND NOW QTc 474 ms BEYOND NOW P [place] degrees BEYOND NOW R [place] -89 degrees BEYOND NOW T [place] 60 degrees BEYOND NOW 11/20/2024 8:13 PM BABYSITTER 11/20/2024 10:11 PM BABYSITTER us Tanvir Rodriguez MD EKG ORD Final Res ult Performing Organization Address [facility] Co de Phone Number BEYOND NOW [place], [place] * INFLUENZA A/B PCR (11/20/2024 8:02 PM BABYSITTER) Pathologist [facility] INFLUENZA A PCR NOT Detected 11/20/2024 8:58 PM BABYSITTER [facility] INFLUENZA B PCR NOT Detected 11/20/2024 8:58 PM BABYSITTER [facility] Other SPECIMEN FROM NASOPHARYNGEAL STRUCTURE / Unknown Non-Blood / Unknown 11/20/2024 8:02 PM BABYSITTER 11/20/2024 8:16 PM BABYSITTER us Montserrat LUBIN MICROBIOLOGY Final R esult [facility] [address] [place] [address] from Last 3 Months Insurance MEDICARE PART B HB ONLY [place] BLUE HB ONLY MEDICARE PART A HB ONLY [place] BLUE MR PB ONLY [place] BLUE HB ONLY HC MEDICARE PPS Advance Directives Documents on File Type Date Recorded 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 Healthcare Directive 09/09/2017 12:00 AM 09/09/17 * DNR (Latest Code Status on File) Date Activated Date Inactivated Comments 11/25/2024 2:11 PM 11/28/2024 3:04 PM Question Answer Comments Code Status Discussion: Reviewed Preferences * DNR Date Activated Date Inactivated Comments 11/23/2024 6:29 PM 11/25/2024 2:11 PM Question Answer Comments Code Status Discussion: Unable to Assess Preferences, Provider to review later * DNR Date Activated Date Inactivated Comments 02/10/2024 3:24 PM 02/13/2024 6:41 PM Question Answer Comments Code Status Discussion: Reviewed Preferences * Full Code Date Activated Date Inactivated Comments 05/04/2022 3:31 PM 05/05/2022 3:44 PM Question Answer Comments Code Status Discussion: Reviewed Preferences * DNR Date Activated Date Inactivated Comments 05/03/2022 11:56 AM 05/04/2022 3:30 PM Question Answer Comments Code Status Discussion: Reviewed Preferences Care Teams Babysitter Relationship Specialty Start Date End Date Juan Landry PA [address] [place] [id number] PCP - General Physician Ssas Developer 06/20/23
[2025-01-01] MEDS: ASPIRIN 300 MG SUPP PR (16:02)
--- NOTE | 2025-01-01 16:26 | PM.IMHP1 ---
Hospitalist- H&P: HPI History of Present Illness Date Seen: 01/01/25 Chief complaint: CVA Narrative: Sofi Martinez is a 84 year old female w/ PMHx of cognitive impairment, HFpEF, A fib on AC, COPD, CKD III, breast cancer who presents w/ Lt sided weakness, left facial droop, left neglect,. NIH stroke scale about 7. last seen Nl was at 11.45 am today. CTH, CT angio H&N showed Rt MCA occlusion. Tele-stroke service were contacted and said: She would be a candidate for thrombolytics based on time of last known well, provided that her INR is in a safe zone to give it. If it is 1.7 or above, thrombolytics would be contraindicated due to bleeding risk. He agrees with giving thrombolytics if the patient is accepting and if INR is low enough to make safe. INR came subtX at 1.58. ED D/W son the need to transfer pt for treatment. pt didnt receive thrombolytics because her son stated that he would prefer not to give thrombolytics especially if there is risk and if as a requirement of transferring to the [facility]. Pt received rectal ASA 300 at ED. Review of Systems Status of ROS: Reports: 6 or more systems reviewed and unremarkable except as noted in History and below [facility] Medical History (Updated 01/01/25 @ 22:14 by Laly Canseco MD) Cognitive impairment ?R41.89 - Other symptoms and signs involving cognitive functions and awareness (ICD-10) Pancreatic cyst ?K86.2 - Cyst of pancreas (ICD-10) Lung nodule ?R91.1 - Solitary pulmonary nodule (ICD-10) Elevated liver transaminase level ?R74.01 - Elevation of levels of liver transaminase levels (ICD-10) Rhabdomyolysis ?M62.82 - Rhabdomyolysis (ICD-10) Breast cancer ?C50.919 - Malignant neoplasm of unspecified site of unspecified female breast (ICD-10) Obesity ?E66.9 - Obesity, unspecified (ICD-10) Heart failure with preserved ejection fraction ?I50.30 - Unspecified diastolic (congestive) heart failure (ICD-10) History of cardiac pacemaker ?Z95.0 - Presence of cardiac pacemaker (ICD-10) Sleep apnea ?G47.30 - Sleep apnea, unspecified (ICD-10) Paroxysmal atrial fibrillation ?I48.0 - Paroxysmal atrial fibrillation (ICD-10) Chronic anticoagulation ?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 (ICD-10) Hypertension ?I10 - Essential (primary) hypertension (ICD-10) Stage 3 chronic kidney disease ?N18.30 - Chronic kidney disease, stage 3 unspecified (ICD-10) COPD exacerbation ?J44.1 - Chronic obstructive pulmonary disease with (acute) exacerbation (ICD-10) Surgical History (Updated 12/24/24 @ 21:55 by Carlitos Kent MD) S/p total knee replacement, bilateral ?Z96.653 - Presence of artificial knee joint, bilateral (ICD-10) S/P oophorectomy History of aortic valve replacement with bioprosthetic valve ?Z95.3 - Presence of xenogenic heart valve (ICD-10) Social History (Updated 12/24/24 @ 22:09 by Carlitos Kent MD) Narrative: Until last month she was living independently at home. Then hospitalized with weakness and multiple other medical problems. Now at [address] [place] [address]. She is present here with her son, Kenneth, and [id number]. Kenneth is healthcare power of civil attorney. Code status is DNR. Former smoker having quit about 40 years ago. Previously drank alcohol regularly but not currently drinking What is your current living situation?: I presently have a place to live Problems where you live: no known problems Problems where you live details: N/A In the past 12 months, utilities in danger of being shut off: no In past 12 months, lack of transportation kept you from medical appts, meetings, work, or getting things needed for daily living: no In the past 12 mos, have been you worried that your food would run out before you had money to buy more?: never true In the past 12 mos, the food you bought just didn't last and you didn't have money to buy more?: never true Highest level of school completed/degree received: high school graduate Smoking Status: Former smoker How often do you have a drink containing alcohol: never How often do you have six or more drinks on one occasion: Never AUDIT-C Alcohol total score: 0 Non-prescribed substance use: denies use How often does anyone, including family, friends and others, physically hurt you: never How often does anyone, including family, friends and others, insult or talk down to you: never How often does anyone, including family, friends and others, threaten you with harm: never How often does anyone, including family, friends and others, scream or curse at you: never service: No Meds Home Medications and Allergies Home Medications ?Medication ?Instructions ?Recorded ?Confirmed ?Type acetaminophen 500 mg tablet 1,000 mg PO BID 12/24/24 01/01/25 History albuterol sulfate 90 mcg/actuation 2 puff inhalation Q4H PRN wheezing 12/24/24 01/01/25 History aerosol inhaler allopurinol 100 mg tablet 100 mg PO DAILY 12/24/24 01/01/25 History aspirin 81 mg tablet,delayed 81 mg PO DAILY 12/24/24 01/01/25 History release atorvastatin 40 mg tablet 40 mg PO QPM 12/24/24 01/01/25 History calcium 600 mg (as 1 tab PO DAILY 12/24/24 01/01/25 History carbonate)-vitamin D3 10 mcg (400 unit) tablet carvedilol 12.5 mg tablet 12.5 mg PO BID 12/24/24 01/01/25 History diclofenac sodium 1 % topical gel 2 g topical QID PRN 12/24/24 01/01/25 History (Arthritis Pain (diclofenac)) enalapril maleate 20 mg tablet 20 mg PO BID 12/24/24 01/01/25 History fluticasone fur. 200 mcg-umeclid 1 ea inhalation DAILY 12/24/24 01/01/25 History 62.5 mcg-vilant 25 mcg inhalat.powder (Trelegy Ellipta) potassium chloride 20 mEq 20 meq PO BID 12/24/24 01/01/25 History tablet,extended release torsemide 20 mg tablet 40 mg PO BID 12/24/24 01/01/25 History vitamins A,C,O-yqve-vxnedc 2,148 1 tab PO DAILY 12/25/24 01/01/25 History mcg-113 mg-45 mg-17.4 mg tablet (Eye Multivitamin) warfarin 2 mg tablet 2 mg PO SUTUTHSA 12/25/24 01/01/25 History warfarin 3 mg tablet 3 mg PO MOWEFR 12/25/24 01/01/25 History Allergies Allergy/AdvReac Type Severity Reaction Status Date / Time oxycodone Allergy Unknown Verified 01/01/25 13:41 Exam Narrative: Exam Narrative: Physical exam GENERAL: Comfortable, no acute distress. HEAD AND NECK: Atraumatic, normocephalic CARDIOVASCULAR: RRR. Normal S1, S2. No murmurs. RESPIRATORY: Good air entry B/L. +ve wheezes. GASTROINTESTINAL: Obese, not tender to palpation. NEUROLOGY: Alert, awake. No facial droop, No drifting upon my exam of Lt sided UE or LE. PSYCH: Normal mood, normal affect. Const: Vital Signs, click to edit/add: Vital Signs - 24 hr 01/01/25 13:35 01/01/25 13:46 01/01/25 13:50 Temperature 97.6 F Pulse Rate 72 62 Pulse Rate [Pulse Oximeter] 93 Respiratory Rate 20 18 Blood Pressure 147/93 H 141/84 H Blood Pressure [Ri ght Upper Arm] 154/82 H Pulse Oximetry 89 94 86 L Oxygen Delivery Me thod Room Air 01/01/25 14:02 01/01/25 14:15 01/01/25 14:16 Temperature Pulse Rate 60 60 Pulse Rate [Pulse Oximeter] Respiratory Rate 10 L 25 H 12 Blood Pressure 129/77 151/94 H Blood Pressure [Ri ght Upper Arm] Pulse Oximetry 91 88 Oxygen Delivery Me thod 01/01/25 14:42 01/01/25 14:47 01/01/25 15:00 Temperature Pulse Rate 63 62 61 Pulse Rate [Pulse Oximeter] Respiratory Rate 18 19 10 L Blood Pressure 144/108 H 142/87 H Blood Pressure [Ri ght Upper Arm] Pulse Oximetry 92 91 90 Oxygen Delivery Me thod 01/01/25 15:01 01/01/25 15:06 01/01/25 15:15 Temperature Pulse Rate 61 Pulse Rate [Pulse Oximeter] Respiratory Rate 43 H 39 H Blood Pressure 160/126 H Blood Pressure [Ri ght Upper Arm] Pulse Oximetry 93 94 Oxygen Delivery Me thod 01/01/25 15:17 01/01/25 15:17 01/01/25 15:30 Temperature Pulse Rate 63 63 63 Pulse Rate [Pulse Oximeter] Respiratory Rate 42 H 42 H 12 Blood Pressure 152/94 H 152/94 H Blood Pressure [Ri ght Upper Arm] Pulse Oximetry 95 95 91 Oxygen Delivery Me thod 01/01/25 15:32 01/01/25 15:45 01/01/25 15:47 Temperature Pulse Rate 66 Pulse Rate [Pulse Oximeter] Respiratory Rate 43 H 12 26 H Blood Pressure 162/108 H 142/89 H Blood Pressure [Ri ght Upper Arm] Pulse Oximetry 96 Oxygen Delivery [facility] 01/01/25 15:47 Temperature Pulse Rate Pulse Rate [Pulse Oximeter] Respiratory Rate 26 H Blood Pressure 142/89 H Blood Pressure [Ri ght Upper Arm] Pulse Oximetry Oxygen Delivery [facility] Hospitalist - H&P: Result Labs Labs: Short CBC 01/01/25 Range/Units 14:12 WBC 8.38 (4.50-11.00) K/uL Hgb 13.0 (12.0-16.0) gm/dL Hct 39.9 (33.0-51.0) % Plt Count 248 (140-440) K/uL BMP 01/01/25 14:12 Sodium 141 Potassium 3.5 L Chloride 102 Carbon Dioxide 32 BUN 25 Creatinine 1.1 Glucose 114 Calcium 8.8 Cardiac Enzymes 01/01/25 Range/Units 14:12 Troponin I 0.02 (0.01-0.04) ng/mL ECG Attestation: I personally reviewed and interpreted this ECG as follows: ECG interpretation date: 01/01/25 Interpretation: Ventricular pacing QTc [address] scan - head: Radiologist's impression: INDICATION: Right facial droop, left upper extremity weakness and neglect, altered mental status, on warfarin. COMPARISON: None. TECHNIQUE: CT of the brain / head without intravenous contrast. Multiplanar axial, coronal, and sagittal reformats were reconstructed. FINDINGS: Streak artifact from the patient`s hearing aids as well as beam hardening artifact from the hyperostosis of the calvarium. No intracranial hemorrhage. There are scattered punctate calcifications along the superficial surface of the gyri in the right cerebral hemisphere. Preserved leonard-white differentiation. Punctate hypodensity in the region of the right basal ganglia on series 2, image 24 May be a small lacunar infarct or even a prominent perivascular space. Scattered white matter hypodensities may be related to chronic microvascular ischemia. No mass or mass effect. Normal ventricles. No skull fractures. Calvarial hyperostosis. IMPRESSION: No acute appearing intracranial findings. No intracranial hemorrhage. Case discussed with Dr. Roohani at 1:51 p.m. on 01/01/2025. Please note that all CT scans at this facility use dose modulation, iterative reconstruction, and/or weight-based dosing when appropriate to reduce radiation dose to as low as reasonably achievable. Dictated by Yandy Cesar MD @ 01/01/2025 1:51:51 PM (Electronically Signed) Assessment and Plan Assessment and plan (1) Acute ischemic right MCA stroke: Problem comment: -neurology Telehealth consulted and they recommended the following: - Continuous cardiac monitoring - ASA rectal 300 mg daily (ASA 81 mg daily oral when able to take po) - NS for hydration - MRI brain wo contrast - PT/OT/Speech consult - frequent neuro checks per post lytic protocol - mechanical DVT prophylaxis - no lytic therapy or thrombectomy: not in line with goals of care -neurologist believes that palliative care approach would be appropriate and recommends further discussion regarding goals of care. With metastatic breast cancer not being treated and a disabling stroke, prognosis is not good. She may have some improvement over the next few days, however it is possible that she continues to decline as well. -I am holding patient's warfarin, plan is to call the neurologist tomorrow morning and discuss with him the right time to resume anticoagulation in the context of her acute stroke. -permissive hypertension, treat if systolic blood pressure is above 210 mm Hg or a diastolic blood pressure is above 105 a.m. Status: Acute (2) Paroxysmal atrial fibrillation: Problem comment: on AC Status: Acute (3) Chronic anticoagulation: Problem comment: On Warfarin Will be holding patient's warfarin, plan is to call the neurologist tomorrow morning and discuss with him the right time to resume anticoagulation in the context of her acute stroke. Status: Acute (4) Heart failure with preserved ejection fraction: Problem comment: -Echocardiogram from January 2024: Final Impressions: 1. Echo contrast was administered to enhance visualization of all left ventricular segments. 2. Normal left ventricular size, mildly increased wall thickness, normal global systolic function, calculated EF of 61 %. 3. Basal inferior segment and basal septum segment are abnormal. 4. Grade 2 pattern of LV diastolic filling. 5. Right ventricular cavity size is normal, global systolic RV function is mildly reduced. 6. Mildly enlarged left atrium. 7. 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 8. The mitral valve is normal, mild to moderate mitral regurgitation. 9. Moderate tricuspid regurgitation with an estimated RVSP of 38 mmHg + the RA pressure. 10. IVC geometry compatible with an elevated estimated RA pressure (15 mmHg). Status: Acute (5) Hypertension: Problem comment: -underlying diastolic heart heart failure likely attributable to hypertensive cardiomyopathy Status: Acute (6) Sleep apnea: Problem comment: -On home CPAP Status: Acute (7) Breast cancer: Problem comment: -Left breast mass diagnosed as breast cancer in October 2024. Patient has declined further evaluation or treatment. Likely metastatic to lymph nodes in the left axilla. Status: Acute (8) Cognitive impairment: Problem comment: -Patient has significant difficulty remembering recent events. Status: Acute (9) Aneurysm, carotid artery, internal: Problem comment: Incidental finding, pt needs outpt F/up w/ IR Status: Acute (10) COPD (chronic obstructive pulmonary disease): Problem comment: -Pt only uses PRN albuterol, she is not on daily COPD LABA/LAMA medications -Will need to discuss with family the importance of controlling COPD w daily Tx Status: Acute (11) Stage 3 chronic kidney disease: Status: Acute Total Time Spent Total Time Spent: Time spent: Today I spent 75 minutes seeing the patient, discussing the patient with ER staff, reviewing Expanse and EPIC notes/diagnostics, discussing the care plan with our care time that includes social work, PT/OT, pharmacy, RT, prison and documenting my impressions and plan in the medical record. The
[2025-01-01 16:55] LABS: PCR FLU A Negative PCR FLU A (Negative); PCR FLU B Negative PCR FLU B (Negative); PCR RSV Negative PCR RSV (Negative); SARS PCR* Negative SARS-CoV-2 (Negative)
[2025-01-01 20:50] LABS: Appearance Urine Clear (Clear); Bilirubin Urine Negative (Negative); Blood Urine Negative (Negative); Color Urine Yellow (Yellow); Glucose Urine Negative (Negative); Ketones Urine Negative (Negative); Leukocyte Esterase Urine Trace (Negative); Nitrite Urine Negative (Negative); Protein Urine Negative (Negative); Urobilinogen Urine 0.2 (0.2-1.0)
[2025-01-01 21:04] LABS: Bacteria Urine Few; RBC Urine 0-2 (0-2); Squamous Epithelial Cell Urine Few (None-Few)
[2025-01-01] MEDS: NYSTATIN POWDER 1 APPLIC TOPICAL (21:50)
[2025-01-01] MEDS: SODIUM CHLORIDE 0.9 % (FLUSH) 10 ML SYRINGE 5 ML IVF (21:50)
--- NOTE | 2025-01-01 23:37 | PC.NURSE ---
End of Shift: Patient admitted to 277. Pleasant and cooperative. Afebrile. Denies pain. Up to [facility] with SBA, walker and gait belt. Abdominal folds reddened, cleansed and nystatin powder applied. Tele showing a paced rhythm.
[2025-01-02] VITALS (9 sets, daily range): BP systolic 143–190; BP diastolic 73–98; PULSE 60–78; RESP 18–22; TEMP 36.4–36.7; O2SAT 88–96
--- NOTE | 2025-01-02 05:32 | PC.NURSE ---
[id number] Pt slept well during night, neuros unremarkable, very slight L sided arm weakness, pt states this is baseline due to chronic left arm injury. permissive hypertension. ambulating to BR with walker/SBA, tolerating activity very well. tolerated ice chips/small sips, no signs of aspiration/coughing.
[2025-01-02 07:08] LABS: Hematocrit 39.3 % (33.0-51.0); Hemoglobin* 12.7 gm/dL (12.0-16.0); Mean Corpuscular HGB Conc 32 gm/dL (32-36); Mean Corpuscular Hemoglobin 31 pg (26-34); Mean Corpuscular Volume 95 fL (80-100); Platelet Count* 262 K/uL (140-440); Red Blood Count 4.14 m/uL (4.00-5.20); Slide Review Reflex No; White Blood Count* 7.93 K/uL (4.50-11.00)
[2025-01-02 07:20] LABS: Chloride* 105 mmol/L (96-114)
[2025-01-02 07:21] LABS: Potassium* 3.5 mmol/L (3.6-5.1); Sodium* 141 mmol/L (135-149)
[2025-01-02 07:23] LABS: Blood Urea Nitrogen* 21 mg/dL (7-30); Creatinine* 0.9 mg/dL (0.5-1.5); Estimated Glomerular Filt Rate 63 ml/min
[2025-01-02 07:24] LABS: Anion Gap 6 mEq/L (7-15); Calcium* 8.6 mg/dL (8.4-10.6); Carbon Dioxide* 30 mmol/L (20-32); Glucose* 102 mg/dL (60-115); INR 1.64 (0.91-1.10); Magnesium* 2.3 mg/dL (1.5-2.6); Prothrombin Time 20.4 Seconds
[2025-01-02] MEDS: NYSTATIN POWDER 1 APPLIC TOPICAL ×2 (09:28→20:45)
[2025-01-02] MEDS: SODIUM CHLORIDE 0.9 % (FLUSH) 10 ML SYRINGE 5 ML IVF ×2 (09:29→20:45)
--- NOTE | 2025-01-02 11:11 | NUTR.NU ---
Nutrition screen initiated r/t skin risk. Admit ischemic stroke, cognitive impairment. Height 66, Weight 255.7 lbs, BMI 41.4. Admit last week intake 75 to 100% of all meals. Swallow evaluation this morning with recommendation of Regular diet with thin liquids. Patient lives at [facility] where all meals and care are provided. Monitor diet tolerance and intake and follow up as needed.
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
--- NOTE | 2025-01-02 14:33 | CRLHL7_ITS ---
For Patients: As a result of the Century Cures Act, medical imaging exams and procedure reports are released immediately into your electronic medical record. You may view this report before your referring provider. If you have questions, please contact your health care provider. INDICATION: CHECK FOR ENLARGING INFARCT OR HEMORRHAGIC CONVERSION TECHNIQUE: CT of the head was performed without IV contrast. COMPARISON: 01/01/2025. FINDINGS: Parenchyma: No acute hemorrhage, infarction, or mass. Moderate scattered periventricular white matter hypoattenuation is nonspecific and is favored to represent chronic small vessel ischemic disease. Ventricles and extra-axial spaces: Mild involutional changes. Visualized paranasal sinuses: Clear. Mastoid air cells: Clear. Bones: Hyperostosis frontalis interna. Additional comment: Bilateral lens surgery. IMPRESSION: No acute hemorrhage or large territory infarct. Please note that all CT scans at this facility use dose modulation, iterative reconstruction, and/or weight-based dosing when appropriate to reduce radiation dose to as low as reasonably achievable. Dictated by Yannick Lizarraga MD @ 01/02/2025 3:22:23 PM (Electronically Signed)
[2025-01-02] MEDS: TORSEMIDE 20 MG TABLET 40 MG PO (16:24)
--- NOTE | 2025-01-02 16:25 | PC.SOCIAL ---
Discharge planning: Called [facility] and spoke with nursing who confirmed pt is on a bed hold at that facility and can return at discharge.
--- NOTE | 2025-01-02 17:07 | W.PM.CROSSCO ---
Subjective Subjective Interval history: Contacted Neurology Dr. Russell to discuss the issue of warfarin and its resumption after the ischemic stroke. He recommended doing a CT head without contrast to rule out an enlarging infarct or hemorrhagic conversion and call Neurology service back so they can check the CT, if no changes then we can resume warfarin. After we got the CT, I contacted the neurology service and Dr. Soares reviewed the CT scan and said there is no need to bridge her with Lovenox, her INR today is 1.64, so just resume her warfarin. Objective Objective Data Details: CTH wo contrast INDICATION: CHECK FOR ENLARGING INFARCT OR HEMORRHAGIC CONVERSION TECHNIQUE: CT of the head was performed without IV contrast. COMPARISON: 01/01/2025. FINDINGS: Parenchyma: No acute hemorrhage, infarction, or mass. Moderate scattered periventricular white matter hypoattenuation is nonspecific and is favored to represent chronic small vessel ischemic disease. Ventricles and extra-axial spaces: Mild involutional changes. Visualized paranasal sinuses: Clear. Mastoid air cells: Clear. Bones: Hyperostosis frontalis interna. Additional comment: Bilateral lens surgery. IMPRESSION: No acute hemorrhage or large territory infarct. Assessment and Plan Assessment and plan (1) Acute ischemic right MCA stroke: Problem comment: - neurology Telehealth consulted on admission, following - improved 01/02/25 - unable to obtain MRI 12/02 pacemaker, no TTE capabilities 01/02 - tolerating permissive HTN - regular diet per speech 01/02/25 Status: Acute (2) Chronic anticoagulation: Problem comment: - On Warfarin for afib - CT head today PM ruled out an enlarging infarct or hemorrhagic conversion - Dr. Soares reviewed the CT scan and said there is no need to bridge her with Lovenox, her INR today is 1.64, so just resume her warfarin. - ordered pharmacists consult to resume warfarin today p.m. Status: Acute
[2025-01-02] MEDS: POTASSIUM CHLORIDE 10 MEQ CAPSULE ER 20 MEQ PO (18:18)
[2025-01-02] MEDS: WARFARIN 3 MG TABLET PO (18:27)
--- NOTE | 2025-01-02 18:51 | PC.NURSE ---
Patient denies pain. Neuros remain unremarkable. VSS, permissive HTN allowed. On RA desats when ambulating but recovers quickly. Hx of HIEU uses CPAP at [facility] but did not bring. Tolerating regular diet. Ambulating SBA with walker. Afebrile this shift. Head CT completed and warfarin restarted. Reddened abdominal folds and open area on left, area cleansed, and nystatin applied.
[2025-01-02] MEDS: ACETAMINOPHEN 500 MG TABLET 1000 MG PO (20:45)
[2025-01-02] MEDS: ATORVASTATIN CALCIUM 40 MG TABLET PO (20:45)
[2025-01-03 03:00] VITALS: BP 158/87; PULSE 60; PULSE 63; RESP 20; TEMP 36.6; O2SAT 92
--- NOTE | 2025-01-03 06:27 | PC.NURSE ---
End of shift report [id number]: Alert and oriented to self and birthdate. Denies any pain, chest pain or shortness of breath this shift. Neuro's intact. Patient at baseline has issues with raising left arm due to previous shoulder injury. Facial symmetry equal, smile equal. Transfers and ambulates with SBA with walker. Utilizing call light appropriately throughout the shift.
[2025-01-03 07:00] VITALS: BP 167/93; PULSE 60; PULSE 63; PULSE 65; RESP 20; TEMP 36.4; O2SAT 93
[2025-01-03 07:00] LABS: Basophils Absolute Auto 0.05 K/uL (0.00-0.30); Basophils Percent Auto 0.7 % (0.0-3.0); Eosinophils Absolute Auto 0.13 K/uL (0.00-0.50); Eosinophils Percent Auto 1.8 % (0.0-7.0); Hematocrit 38.8 % (33.0-51.0); Hemoglobin* 12.6 gm/dL (12.0-16.0); Immature Granulocytes Abs Auto 0.04 K/uL (0.00-0.30); Immature Granulocytes Pct Auto 0.5 %; Lymphocytes Absolute Auto 1.66 K/uL (0.90-2.90); Lymphocytes Percent Auto 22.7 % (20-44); Mean Corpuscular HGB Conc 33 gm/dL (32-36); Mean Corpuscular Hemoglobin 31 pg (26-34); Mean Corpuscular Volume 95 fL (80-100); Monocytes Percent Auto 9.7 % (0.0-11.0); Neutrophils Absolute Auto 4.72 K/uL (1.7-7.0); Neutrophils Percent Auto 64.6 % (42.0-72.0); Platelet Count* 263 K/uL (140-440); RDW Coefficient of Variation % 15.3 % (11.5-15.5); Red Blood Count 4.09 m/uL (4.00-5.20); White Blood Count* 7.31 K/uL (4.50-11.00)
[2025-01-03 07:01] LABS: Slide Review Reflex No
[2025-01-03 07:10] LABS: Albumin* 3.2 g/dL (3.3-5.0); Chloride* 105 mmol/L (96-114); Potassium* 3.3 mmol/L (3.6-5.1); Sodium* 142 mmol/L (135-149)
[2025-01-03 07:12] LABS: Anion Gap 6 mEq/L (7-15); Bilirubin Total* 0.8 mg/dL (0.1-1.5); Blood Urea Nitrogen* 16 mg/dL (7-30); Carbon Dioxide* 31 mmol/L (20-32); Estimated Glomerular Filt Rate 55 ml/min
[2025-01-03 07:13] LABS: Alanine Aminotransferase* 21 U/L (4-35); Alkaline Phosphatase* 83 U/L (40-150); Aspartate Amino Transferase* 22 U/L (12-35); Calcium* 8.2 mg/dL (8.4-10.6); Glucose* 90 mg/dL (60-115); Prothrombin Time 20.1 Seconds; Total Protein* 5.9 g/dL (6.0-8.3)
[2025-01-03] MEDS: POTASSIUM CHLORIDE 10 MEQ CAPSULE ER 20 MEQ PO (09:02)
[2025-01-03] MEDS: SODIUM CHLORIDE 0.9 % (FLUSH) 10 ML SYRINGE 5 ML IVF (09:03)
[2025-01-03] MEDS: ASPIRIN 81 MG TAB.CHEW PO (09:03)
[2025-01-03] MEDS: TORSEMIDE 20 MG TABLET 40 MG PO (09:03)
[2025-01-03] MEDS: allopurinoL 100 MG TABLET PO (09:03)
[2025-01-03] MEDS: ACETAMINOPHEN 500 MG TABLET 1000 MG PO (09:03)
[2025-01-03] MEDS: NYSTATIN POWDER 1 APPLIC TOPICAL (09:04)
--- NOTE | 2025-01-03 09:30 | PM.DS1 ---
DS: Providers Provider Date Seen: 01/30/25 Date of admission: 01/01/25 16:51 Primary care physician: Johnathan Lopez MD Admitting Clinician: Madison Herrera MD Consults: PT, OT, SW, Speech, Stroke Neurology Attending Physician on discharge: Destiny Hackett MD Date of Discharge: 01/03/25 DS: Diagnosis Discharge Diagnosis (1) Acute ischemic right MCA stroke: Status: Acute Problem details: - presumed based on L facial droop/weakness upon admission, TIA in ddx - neurology Telehealth consulted on admission, followed during stay: recommends continuing Warfarin - unable to obtain MRI 2/2 pacemaker, improved during stay, followed by therapies - permissive HTN until discharge, resuming BP medications upon return to [facility] (2) Chronic anticoagulation: Status: Acute Problem details: - On Warfarin for afib - CT head on admission negative for acute bleed - per Stroke Neuro, continue Coumadin, goal INR 2.0-3.0 - INR is 1.6 upon d/c, will stay on current dose of anticoagulation, follow INR at [facility] (3) Breast cancer: Status: Acute Problem details: - Left breast mass diagnosed as breast cancer in October 2024. Patient has declined further evaluation or treatment. Likely metastatic to lymph nodes in the left axilla - patient and family aware, have elected not to treat (4) Heart failure with preserved ejection fraction: Status: Acute Problem details: -Echocardiogram from January 2024: Final Impressions: 1. Echo contrast was administered to enhance visualization of all left ventricular segments. 2. Normal left ventricular size, mildly increased wall thickness, normal global systolic function, calculated EF of 61 %. 3. Basal inferior segment and basal septum segment are abnormal. 4. Grade 2 pattern of LV diastolic filling. 5. Right ventricular cavity size is normal, global systolic RV function is mildly reduced. 6. Mildly enlarged left atrium. 7. 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 8. The mitral valve is normal, mild to moderate mitral regurgitation. 9. Moderate tricuspid regurgitation with an estimated RVSP of 38 mmHg + the RA pressure. 10. IVC geometry compatible with an elevated estimated RA pressure (15 mmHg). (5) Paroxysmal atrial fibrillation: Status: Acute Problem details: - paced rhythm during stay (6) Aneurysm, carotid artery, internal: Status: Acute Problem details: - incidental finding on imaging, outpatient f/u if within goals of care DS: Summary Hospital Course Hospital Course: Sofi was admitted to the hospital from [facility] on 01/01/25 for L facial droop, slurred speech, weakness. Stroke code called in ED, reassuring noncontrast head CT. CTA of head/neck revealed no acute abnormalities. Followed by Stroke Neurology during stay. Unable to have an MRI 2/2 pacemaker. Symptoms improved on hospital day 1 with no further facial droop or lateralizing weakness. Followed by therapies, no additional needs idenfied. Speech therapy recommends soft/bite sized diet. Tolerated permissive HTN, paced rhythm on telemetry. Back to baseline and appropriate for d/c back to [facility] with family on 01/03/25. Status at Discharge Functional status at discharge: uses cane/walker Overall status at discharge: patient is progressing back to baseline Time Spent with Patient Time attestation: Total time spent providing and/or coordinating discharge services: Time spent: Greater than 30 minutes Exam Narrative: Exam Narrative: GEN: Alert and sitting in bedside chair, having breakfast HEENT: No persistent facial droop, EOMIs bilaterally, no scleral icterus CV: RRR, No concerning murmurs R: LCTA bilaterally without concerning wheezing Skin: No concerning skin lesions or rashes on exposed skin Neuro: Normal and symmetric movement of all 4 extremities, no resting tremor Psych: Appropriate Const: Vital Signs, click to edit/add: Vital Signs - 24 hr 01/02/25 11:00 01/02/25 11:00 01/02/25 14:53 Temperature 97.6 F 97.5 F L Pulse Rate Pulse Rate [Left P ulse Oximeter] 60 60 60 Respiratory Rate 20 20 Blood Pressure [Le ft Arm] 190/98 H 150/73 H Pulse Oximetry 92 96 Oxygen Delivery Me thod Room Air Room Air Oxygen Flow Rate 01/02/25 15:00 01/02/25 15:00 01/02/25 15:00 Temperature Pulse Rate Pulse Rate [Left P ulse Oximeter] 60 60 Respiratory Rate 20 20 Blood Pressure [Le ft Arm] Pulse Oximetry 96 Oxygen Delivery Me thod Room Air Oxygen Flow Rate 01/02/25 19:00 01/02/25 19:00 01/02/25 20:35 Temperature 98.0 F Pulse Rate Pulse Rate [Left P ulse Oximeter] 60 60 Respiratory Rate 22 Blood Pressure [Le ft Arm] 159/77 H Pulse Oximetry 88 88 Oxygen Delivery Me thod Room Air Nasal Cannula Oxygen Flow Rate 1.5 01/02/25 23:00 01/02/25 23:00 01/02/25 23:00 Temperature Pulse Rate 60 Pulse Rate [Left P ulse Oximeter] 60 60 Respiratory Rate 18 Blood Pressure [Le ft Arm] Pulse Oximetry Oxygen Delivery Me thod Oxygen Flow Rate 01/02/25 23:00 01/02/25 23:00 01/03/25 03:00 Temperature 97.8 F Pulse Rate Pulse Rate [Left P ulse Oximeter] 60 60 Respiratory Rate 18 18 Blood Pressure [Le ft Arm] 143/95 H Pulse Oximetry 94 94 Oxygen Delivery Me thod Nasal Cannula Nasal Cannula Oxygen Flow Rate 1.5 1.5 01/03/25 03:00 01/03/25 07:00 01/03/25 07:00 Temperature 97.8 F 97.6 F Pulse Rate Pulse Rate [Left P ulse Oximeter] 63 65 Respiratory Rate 20 20 20 Blood Pressure [Le ft Arm] 158/87 H 167/93 H Pulse Oximetry 92 93 93 Oxygen Delivery Me thod Nasal Cannula Room Air Room Air Oxygen Flow Rate 1.5 DS: Data Data Completed and Pending Completed studies during hospitalization: Procedures Introduction of Other Gas into Respiratory Tract, Via Natural or Artificial Opening (12/24/24) Labs on day of discharge: Labs from last 24 hours 01/03/25 06:31 WBC 7.31 RBC 4.09 Hgb 12.6 Hct 38.8 MCV 95 MCH 31 MCHC 33 RDW Coeff of Jarrett 15.3 Plt Count 263 Neut % (Auto) 64.6 Lymph % (Auto) 22.7 [place] % (Auto) 9.7 Eos % (Auto) 1.8 Baso % (Auto) 0.7 Neut # (Auto) 4.72 Lymph # (Auto) 1.66 [place] # (Auto) 0.70 Eos # (Auto) 0.13 Baso # (Auto) 0.05 Abs Immat Gran (auto) 0.04 Imm/Tot Granulo (auto) 0.5 INR 1.60 H Sodium 142 Potassium 3.3 L Chloride 105 Carbon Dioxide 31 Anion Gap 6 L BUN 16 Creatinine 1.0 Estimated Creat Clear 38.50 Estimated GFR 55 Glucose 90 Calcium 8.2 L Total Bilirubin 0.8 AST 22 ALT 21 Alkaline Phosphatase 83 Total Protein 5.9 L Albumin 3.2 L Preliminary micro results at discharge 01/01/25 20:30 Urine Culture - Preliminary Urine,Clean Catch < 10,000 COL/ML MIXED GRAM POSITIVE LASHAUN ISOLATED NO FURTHER WORKUP CTA head/Neck 1. 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 2. 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 3. 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 Discharge Plan Discharge Disposition: [facility] Date of Admission: 01/01/25 16:51 Attending Provider on Discharge: Destiny Hackett Consulting Providers: Thong Morales Primary Care Provider: Johnathan Lopez Condition: Improved Discharge Medications: Continued acetaminophen 500 mg tablet 1,000 mg PO BID allopurinol 100 mg tablet 100 mg PO DAILY albuterol sulfate 90 mcg/actuation HFA aerosol inhaler 2 puff INHALATION Q4H PRN (Reason: wheezing) atorvastatin 40 mg tablet 40 mg PO QPM carvedilol 12.5 mg tablet 12.5 mg PO BID torsemide 20 mg tablet 40 mg PO BID Patient Comments: TAKE TWO TABLETS (40MG) BY MOUTH TWICE A DAY enalapril maleate 20 mg tablet 20 mg PO BID aspirin 81 mg tablet,delayed release (DR/EC) 81 mg PO DAILY calcium carbonate-vitamin D3 600 mg-10 mcg (400 unit) tablet 1 tab PO DAILY diclofenac sodium [Arthritis Pain (diclofenac)] 1 % gel 2 g topical QID PRN potassium chloride 20 mEq tablet extended release 20 meq PO BID Trelegy Ellipta 200-62.5-25 mcg blister with device 1 ea INHALATION DAILY warfarin 2 mg tablet 2 mg PO SUTUTHSA warfarin 3 mg tablet 3 mg PO MOWEFR Eye Multivitamin 2,148 mcg-113 mg-45 mg-17.4mg tablet 1 tab PO DAILY albuterol sulfate 2.5 mg /3 mL (0.083 %) Solution For Nebulization 2.5 mg NEB Q4H PRN (Reason: wheezing) 30 Days Qty: 30 0RF Discharge Orders: Discharge Order (Routine); Ordered 01/03/25 Ordered By: Destiny Hackett Additional Instructions: No changes to home medications, stay on Warfarin and Aspirin. Continue therapies. Activity Level: No strenuous activity Activity Detail: per therapies Discharge Diet: Regular Diet Detail: Monitor for aspiration with liquids please Dysphagia Food: Level 6- Soft & Bite size Follow Up Appointments: Johnathan Lopez MD [Primary Care Provider] - Forms: [facility] Info Instructions Admit to: SNF Discharge Potential: Poor Length of Stay: >90 days Can use facility standing orders?: Yes Code Status: DNR/DNI Rehab Potential: Fair Therapy: Physical Therapy, Occupational Therapy and Speech Therapy Therapy Orders: Evaluate and Treat Therapy Orders Additional Information: concern for recent MCA stroke Oxygen: No Urinary Catheter: No Next INR: Sunday 01/07 INR Goal: 2.0-3.0 Orders are good >30 days: Yes Signature: Destiny Hackett MD
[2025-01-03 11:00] VITALS: BP 175/90; PULSE 60; RESP 20; TEMP 36.4; O2SAT 93
--- NOTE | 2025-01-03 11:17 | PC.SOCIAL ---
Addendum entered by JULIETA Garrett 01/03/25 14:05: Discharge planning: Discharge orders were secure emailed to Kellie at [facility]. Social work to follow-up as needed. Original Note: Discharge planning: tunnel worker sent updated progress notes via secure email to Kellie at [facility] on behalf of the pt at her request. Pt is ready for discharge back to [facility] today and her son is able to pick her up at 3pm to bring her back to [facility]. Social work to follow-up as needed.
--- NOTE | 2025-01-03 16:21 | PC.NURSE ---
Pt discharged at 1555 via wheelchair. Accompanied by son and [id number]. Family bringing Pt back to [facility]. Nurse to nurse report given to Kandy. IV removed. Belonging and discharge forms signed.
== END 2025-01-03 15:55 | DRG 65 ==
LOC: ED 15:47 → MEDSURG 16:18
PROVIDERS: Family Medicine; Admitting Provider Student in an Organized Health Care Education/Training Program; Emergency Provider Emergency Medicine; PCP Family Medicine; Visit Provider Family Medicine
DX: I63.511 Cerebral infarction due to unspecified occlusion or stenosis of right middle cerebral artery (principal); C77.3 Secondary and unspecified malignant neoplasm of axilla and upper limb lymph nodes; G81.94 Hemiplegia, unspecified affecting left nondominant side; I13.0 Hypertensive heart and chronic kidney disease with heart failure and stage 1 through stage 4 chronic kidney disease, or unspecified chronic kidney disease; I50.32 Chronic diastolic (congestive) heart failure; N18.4 Chronic kidney disease, stage 4 (severe); K86.2 Cyst of pancreas; Z68.41 Body mass index [BMI] 40.0-44.9, adult; R29.810 Facial weakness; R29.707 NIHSS score 7; I67.1 Cerebral aneurysm, nonruptured; I65.23 Occlusion and stenosis of bilateral carotid arteries; Z79.01 Long term (current) use of anticoagulants; C50.912 Malignant neoplasm of unspecified site of left female breast; I48.0 Paroxysmal atrial fibrillation; Z95.0 Presence of cardiac pacemaker; R47.81 Slurred speech; Z79.82 Long term (current) use of aspirin; R41.89 Other symptoms and signs involving cognitive functions and awareness; R91.1 Solitary pulmonary nodule; E66.9 Obesity, unspecified; G47.30 Sleep apnea, unspecified; J44.9 Chronic obstructive pulmonary disease, unspecified; I08.1 Rheumatic disorders of both mitral and tricuspid valves; Z95.3 Presence of xenogenic heart valve
CPT/HCPCS: 36415; 70450; 70496; 70498; 71045; 80048; 80053; 81001; 82565; 83605; 83735; 84484; 85025; 85027; 85610; 87081; 87086; 87631; 92610; 93005; 94761; 97110; 97116; 97161; 97166; 97530; 97535; 99285; 99291; A9270; Q9967

== ENCOUNTER 2025-01-27 17:02 | Outpatient (CLI) | payer MEDICARE, BC, SELFPAY | END 2025-01-27 17:03 | disposition home or self-care (01) | LOC: AMB 01-28 11:47 | PROVIDERS: PCP Family Medicine; Visit Provider Internal Medicine | DX: S09.90XA Unspecified injury of head, initial encounter (principal); W01.198A Fall on same level from slipping, tripping and stumbling with subsequent striking against other object, initial encounter; Y92.002 Bathroom of unspecified non-institutional (private) residence as the place of occurrence of the external cause | CPT/HCPCS: A0425; A0427 ==

== ENCOUNTER 2025-01-27 17:40 | Emergency (ER) | payer MEDICARE, BC, SELFPAY ==
[2025-01-27 17:32] VITALS: BP 128/83; PULSE 68; RESP 16; O2SAT 93; BMI 38.7
--- OUTSIDE RECORDS SUMMARY | 2025-01-27 17:32 | XMS_ITS | Clinical Summary ---
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 022 Chronic heart failure 04/25/2022 Viral [...] 04/28/2017 04/29/2017 Impaired renal function 04/02 Acute MS 04/29/2017 Overview (04/26/2017): 20 yrs ago- stent placement HTN (hypertension) 7 Encounters Date Type Department Care Team Description 01/02/2025 Office Visit [facility] [address] [place] [address] Thong Morales MD Telehealth ([facility] ) 01/01/2025 Office Visit [facility] [address] [place] [address] Thong Morales MD Telehealth ([facility]) 12/06/2024 Lab Requisition [facility] [phone] Ermelinda Vciente NP 12/03/2024 Lab Requisition [facility] [phone] Johnathan Lopez MD 11/23/2024 2:32 PM ICER MACHINE - 11/28/2024 12:58 PM ICER MACHINE Hospital Encounter [facility] [address] [place] [address] Yi Galeas, TRISTIAN Quintanilla, Yandy Estes, DO Bonilla, Shaan Dozier, DO Leach, Alexis Reid, SIGN WRITER LETTERER OR PAINTER Joselito, Shalom Flores, DO Aracelis Simms, MD Lee Hernandez Joan R, MD Weakness (Primary Dx); 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); COLLIN (acute kidney injury); Transaminitis; Non-traumatic rhabdomyolysis; Paroxysmal atrial fibrillation (HC); Other problems related to social environment Discharge Disposition: Penitentiary Facility 11/23/2024 Travel 11/20/2024 7:54 PM ICER MACHINE - 11/20/2024 11:47 PM ICER MACHINE Emergency [facility] [address] [place] [address] Tanvir Rodriguez MD Malignant neoplasm of left [...] on file Legal Sex Female 3:31 PM ICER MACHINE Gender Identity Not on file Sexual Orientation Not on file Occupation Industry Job Start Date Job End Date retired Not on file Not on file Not on file Obstetrics History Last Filed Vital Signs Vital Sign Reading Time Taken Comments Blood Pressure 164/79 11/28/2024 11:29 AM ICER MACHINE Pulse 73 11/28/2024 11:29 AM ICER MACHINE Temperature 37.4 C (99.4 F) 11/28/2024 11:29 AM ICER MACHINE Respiratory Rate 16 11/28/2024 11:2 9 AM ICER MACHINE Oxygen Saturation 97% 11/28/2024 11: 29 AM ICER MACHINE Inhaled Oxygen Concentration - - Weight 120.7 kg (266 lb 3.2 oz) 11/28/2024 7:03 AM ICER MACHINE Height 167.6 cm (5' 6) 11/23/2024 2:11 PM ICER MACHINE Body Mass Index 42.97 11/23/2024 2:11 PM ICER MACHINE Plan of Treatment Health Maintenance Due Date [...] day) for age 18+ 04/26/2018 04/26/2017 Influenza Vaccine (#1) 2024 COVID-19 vaccine series (8 - Pfizer risk season) 2025 09/05/2024, 12/29/2023, 12/27/2022, Additional history exists Procedures Procedure Name Priority Date/Time Associated Diagnosis Comments BASIC METABOLIC PANEL Routine 12/11/2024 8:13 AM ICER MACHINE Essential (primary) hypertension HEPATIC FUNCTION PANEL Routine 12/04/2024 7:50 AM ICER MACHINE Rhabdomyolysis Dehydration BASIC METABOLIC PANEL Routine 12/04/2024 7:50 AM ICER MACHINE Rhabdomyolysis Dehydration CK TOTAL Routine 12/04/2024 7:50 AM ICER MACHINE Rhabdomyolysis Dehydration COVID-19 MOLECULAR Today 11/28/2024 10 :55 AM ICER MACHINE CREATININE Early AM 11/28/2024 5:42 AM ICER MACHINE SODIUM Early AM 11/28/2024 5:42 AM ICER MACHINE POTASSIUM Early AM 11/28/2024 5:42 AM ICER MACHINE MAGNESIUM Early AM 11/28/2024 5:42 AM ICER MACHINE PROTIME-INR Early AM 11/28/2024 5:42 AM ICER MACHINE CK TOTAL Early AM 11/27/2024 5:47 AM ICER MACHINE AST (SGOT) Early AM 11/27/2024 5:47 AM ICER MACHINE ALT (SGPT) Early AM 11/27/2024 5:47 AM ICER MACHINE CREATININE Early AM 11/27/2024 5:47 AM ICER MACHINE SODIUM Early AM 11/27/2024 5:47 AM ICER MACHINE POTASSIUM Early AM 11/27/2024 5:47 AM ICER MACHINE MAGNESIUM Early AM 11/27/2024 5:47 AM ICER MACHINE PROTIME-INR Early AM 11/27/2024 5:47 AM ICER MACHINE HEPATIC FUNCTION PANEL Early AM 11/26/2024 6:27 AM ICER MACHINE CK TOTAL Early AM 11/26/2024 6:27 AM ICER MACHINE CREATININE Early AM 11/26/2024 6:27 AM ICER MACHINE SODIUM Early AM 11/26/2024 6:27 AM ICER MACHINE POTASSIUM Early AM 11/26/2024 6:27 AM ICER MACHINE MAGNESIUM Early AM 11/26/2024 6:27 AM ICER MACHINE PROTIME-INR Early AM 11/26/2024 6:27 AM ICER MACHINE MAGNESIUM Early AM 11/25/2024 6:48 AM ICER MACHINE HEPATIC FUNCTION PANEL Early AM 11/25/2024 6:48 AM ICER MACHINE CK TOTAL Early AM 11/25/2024 6:48 AM ICER MACHINE CREATININE Early AM 11/25/2024 6:48 AM ICER MACHINE POTASSIUM Early AM 11/25/2024 6:48 AM ICER MACHINE SODIUM Early AM 11/25/2024 6:48 AM ICER MACHINE PROTIME-INR Early AM 11/25/2024 6:48 AM ICER MACHINE MAGNESIUM Timed 11/24/2024 10:45 PM ICER MACHINE MAGNESIUM Timed 11/24/2024 7:39 AM ICER MACHINE PROTIME-INR Early AM 11/24/2024 7:39 AM ICER MACHINE PLATELET COUNT Early AM 11/24/2024 7:39 AM ICER MACHINE CK TOTAL Early AM 11/24/2024 7:39 AM ICER MACHINE HEPATIC FUNCTION PANEL Early AM 11/24/2024 7:39 AM ICER MACHINE CREATININE Early AM 11/24/2024 7:39 AM ICER MACHINE POTASSIUM Early AM 11/24/2024 7:39 AM ICER MACHINE SODIUM Early AM 11/24/2024 7:39 AM ICER MACHINE PROTIME-INR STAT 11/23/2024 8:29 PM ICER MACHINE URINALYSIS MICROSCOPIC STAT 11/23/2024 7:02 PM ICER MACHINE URINE CULTURE STAT 11/23/2024 7:02 PM ICER MACHINE UA W/ SEDIMENT EXAM REFLEXED PER CRITERIA STAT 11/23/2024 7:02 PM ICER MACHINE US ABDOMEN LIMITED RUQ STAT 11/23/2024 4:14 PM ICER MACHINE RED CELL MORPHOLOGY STAT 11/23/2024 2 :55 PM ICER MACHINE PLATELET ESTIMATE STAT 11/23/2024 2:5 5 PM ICER MACHINE MANUAL DIFFERENTIAL STAT 11/23/2024 2 :55 PM ICER MACHINE CBC WITH AUTO DIFFERENTIAL STAT 11/23/2024 2:55 PM ICER MACHINE CBC WITH AUTO DIFFERENTIAL STAT 11/23/2024 2:55 PM ICER MACHINE CK TOTAL CECI 11/23/2024 2:50 PM ICER MACHINE MAGNESIUM STAT 11/23/2024 2:50 PM ICER MACHINE LACTATE VENOUS Today 11/23/2024 2:50 PM ICER MACHINE LIPASE STAT 11/23/2024 2:50 PM ICER MACHINE HEPATIC FUNCTION PANEL STAT 11/23/2024 2:50 PM ICER MACHINE BASIC METABOLIC PANEL STAT 11/23/2024 2:50 PM ICER MACHINE TROPONIN T (HS) ONE TIME Timed 11/20/2024 10:[address] ABDOMEN PELVIS W STAT 11/20/2024 1 0:[address] CHEST PE STUDY STAT 11/20/2024 10: 18 PM ICER MACHINE PRO-BNP CECI 11/20/2024 8:29 PM ICER MACHINE CBC WITH AUTO DIFFERENTIAL STAT 11/20/2024 8:29 PM ICER MACHINE LACTATE VENOUS Today 11/20/2024 8:29 PM ICER MACHINE BLOOD GAS,VENOUS STAT 11/20/2024 8:29 PM ICER MACHINE TROPONIN T (HS) ACUTE W/2HR REFLEX STAT 11/20/2024 8:29 PM ICER MACHINE LIPASE STAT 11/20/2024 8:29 PM ICER MACHINE COMP METABOLIC PANEL STAT 11/20/2024 8:29 PM ICER MACHINE D-DIMER,QUANTITATIVE STAT 11/20/2024 8:29 PM ICER MACHINE PROTIME-INR STAT 11/20/2024 8:29 PM ICER MACHINE CBC WITH AUTO DIFFERENTIAL STAT 11/20/2024 8:29 PM ICER MACHINE EKG 12 LEAD STAT 11/20/2024 8:13 PM ICER MACHINE COVID-19 MOLECULAR Today 11/20/2024 8: 02 PM ICER MACHINE INFLUENZA A/B PCR STAT 11/20/2024 8:0 2 PM ICER MACHINE from Last 3 Months Results * (ABNORMAL) BASIC METABOLIC PANEL (12/11/2024 8:13 AM ICER MACHINE) Only the most recent of3 resultswithin the time period is included. SODIUM 145 136 - 145 mmol/L 12/11/2024 9:36 AM [facility] POTASSIUM 4.2 3.5 - 5.1 mmol/L 12/11/2024 9:36 AM [facility] CHLORIDE 105 98 - 107 mmol/L 12/11/2024 9:36 AM [facility] CO2,TOTAL 30(H) 22 - 29 mmol/L 12/11/2024 9:36 AM [facility] ANION GAP 10 5 - 18 12/11/2024 9:36 AM [facility] GLUCOSE 86 70 - 99 mg/dL 12/11/2024 9:36 AM [facility] CALCIUM 9.1 8.8 - 10.4 mg/dL 12/11/2024 9:36 AM [facility] Comment: Reference ranges for this test were updated on 09/04/2024 to reflect our healthy population more accurately. Reference range changes are not retroactively applied to results, but previous results using the same methodology can be interpreted in the context of the new reference range. BUN 20 8 - 23 mg/dL 12/11/2024 9:36 AM [facility] CREATININE 1.18(H) 0.50 - 0.90 mg/dL 12/11/2024 9:36 AM [facility] BUN/CREAT RATIO 17 10 - 20 9:36 AM [facility] eGFR 45(L) >90 mL/min/1. 73m2 12/11/2024 9:36 AM [facility] Comment:As of 2022, eG FR is calculated by the CKD-EPI creatinine equation without race adjustment. eGFR can be influenced by muscle mass, exercise, and diet. The reported eGFR is an estimation only and is only applicable if the renal function is stable. Blood BLOOD SPECIMEN / Unknown Venipuncture / Unknown 12/11/2024 8:13 AM ICER MACHINE 12/11/2024 9:09 AM ICER MACHINE us Ermelinda Vicente NP CHEMISTRY Final Resul t Performing Organization Address City/[facility] Co de Phone Number [facility] [address] [place] [address] * CK TOTAL (12/04/2024 7:50 AM ICER MACHINE) Only the most recent of6 resultswithin the time period is included. Pathologist [facility] CK,TOTAL 38 26 - 192 IU/L 12/04/2024 9:44 AM [facility] Blood BLOOD SPECIMEN / Unknown Venipuncture / Unknown 12/04/2024 7:50 AM ICER MACHINE 12/04/2024 9:15 AM ICER MACHINE us Johnathan Lopez MD CHEMISTRY Final Result Performing Organization Address [facility] Co de Phone Number [facility] [address] [place] [address] * (ABNORMAL) HEPATIC FUNCTION PANEL (12/04/2024 7:50 AM ICER MACHINE) Only the most recent of5 resultswithin the time period is included. ALBUMIN 3.6(L) 4.0 - 4.9 g/dL 12/04/2024 9:44 AM [facility] PROTEIN,TOTAL 6.4 6.0 - 8.0 g/dL 12/04/2024 9:44 AM [facility] BILIRUBIN,TOTAL 0.6 0.0 - 1.2 mg/dL 12/04/2024 9:44 AM [facility] BILIRUBIN,DIRECT 0.3(H) 0.0 - 0.2 mg/dL 12/04/2024 9:44 AM [facility] BILIRUBIN,INDIRE CT 0.3 0.2 - 0.8 mg/dL 12/04/2024 9:44 AM [facility] ALK PHOSPHATASE 118(H) 35 - 104 IU/L 12/04/2024 9:44 AM [facility] ALT (SGPT) 46(H) 10 - 35 IU/L 12/04/2024 9:44 AM [facility] AST (SGOT) 34 10 - 35 IU/L 12/04/2024 9:44 AM [facility] Blood BLOOD SPECIMEN / Unknown Venipuncture / Unknown 12/04/2024 7:50 AM ICER MACHINE 12/04/2024 9:15 AM ICER MACHINE us Johnathan Lopez MD CHEMISTRY Final Result Performing Organization Address [facility] Co de Phone Number [facility] [address] [place] [address] * COVID-19 MOLECULAR (11/28/2024 10:55 AM ICER MACHINE) Only the most recent of2 resultswithin the time period is included. COVID 19 [place] MOLECULAR Not detected Not detected 11/28/2024 12:20 PM [facility] TESTING LABORATORY [facility] 11/28/2024 12:20 PM [facility] Comment:Specimen submitted t o [facility] for testing. Other SPECIMEN FROM NASOPHARYNGEAL STRUCTURE / Unknown Non-Blood / Unknown 11/28/2024 10:55 AM ICER MACHINE 11/28/2024 12:20 PM ICER MACHINE us Alexis Leach NP MICROBIOLOGY Fin al Result Performing Organization Address [facility]/ZIP Co de Phone Number [facility] [address] [place] [address] * SODIUM (11/28/2024 5:42 AM ICER MACHINE) Only the most recent of5 resultswithin the time period is included. SODIUM 144 136 - 145 mmol/L 11/28/2024 6:46 AM ICER MACHINE [facility] Blood BLOOD SPECIMEN / Unknown Venipuncture / Unknown 11/28/2024 5:42 AM ICER MACHINE 11/28/2024 6:25 AM ICER MACHINE Alexis Leach NP CHEMISTRY Fin al Result Performing Organization Address City/[facility]/ZIP Co de Phone Number [facility] [address] [place] [address] * POTASSIUM (11/28/2024 5:42 AM ICER MACHINE) Only the most recent of5 resultswithin the time period is included. POTASSIUM 4.8 3.5 - 5.1 mmol/L 11/28/2024 6:46 AM [facility] Blood BLOOD SPECIMEN / Unknown Venipuncture / Unknown 11/28/2024 5:42 AM ICER MACHINE 11/28/2024 6:25 AM ICER MACHINE us Michelle Simms MD CHEMISTRY Fin al Result Performing Organization Address [facility] Co de Phone Number [facility] [address] [place] [address] * (ABNORMAL) CREATININE (11/28/2024 5:42 AM ICER MACHINE) Only the most recent of5 resultswithin the time period is included. eGFR 59(L) >90 mL/min/1.7 3m2 11/28/2024 6:46 AM [facility] Comment:As of 2022, eG FR is calculated by the CKD-EPI creatinine equation without race adjustment. eGFR can be influenced by muscle mass, exercise, and diet. The reported eGFR is an estimation only and is only applicable if the renal function is stable. CREATININE 0.95(H) 0.50 - 0.90 mg/dL 11/28/2024 6:46 AM [facility] Blood BLOOD SPECIMEN / Unknown Venipuncture / Unknown 11/28/2024 5:42 AM ICER MACHINE 11/28/2024 6:25 AM ICER MACHINE Alexis Leach NP CHEMISTRY Fin al Result Performing Organization Address [facility] de Phone Number [facility] [address] [place] [address] * (ABNORMAL) PROTIME-INR (11/28/2024 5:42 AM ICER MACHINE) Only the most recent of7 resultswithin the time period is included. INR 3.0(H) <1.3 11/28/2024 6:33 AM ICER MACHINE [facility] PROTIME 34.4(H) 10.6 - 12.4 sec 11/28/2024 6:33 AM [facility] Blood BLOOD SPECIMEN / Unknown Venipuncture / Unknown 11/28/2024 5:42 AM ICER MACHINE 11/28/2024 6:24 AM ICER MACHINE Narrative [facility] - 11/28/2024 6:33 AM ICER MACHINE Therapeutic Range 2.0-3.0 for most anticoagulated patients [...] HEMATOLOGY Fin al Result Performing Organization Address [facility] de Phone Number [facility] [address] [place] [address] * MAGNESIUM (11/28/2024 5:42 AM ICER MACHINE) Only the most recent of7 resultswithin the time period is included. MAGNESIUM 2.3 1.6 - 2.4 mg/dL 11/28/2024 6:46 AM ICER MACHINE [facility] Blood BLOOD SPECIMEN / Unknown Venipuncture / Unknown 11/28/2024 5:42 AM ICER MACHINE 11/28/2024 6:25 AM ICER MACHINE us Michelle Simms MD CHEMISTRY Fin al Result Performing Organization Address [facility] Co de Phone Number [facility] [address] [place] [address] * (ABNORMAL) ALT (SGPT) (11/27/2024 5:47 AM ICER MACHINE) ALT (SGPT) 123(H) 10 - 35 IU/L 11/27/2024 7:11 AM ICER MACHINE [facility] Blood BLOOD SPECIMEN / Unknown Venipuncture / Unknown 11/27/2024 5:47 AM ICER MACHINE 11/27/2024 6:51 AM ICER MACHINE us Alexis Leach NP CHEMISTRY Fin al Result Performing Organization Address [facility] de Phone Number [facility] [address] [place] [address] * (ABNORMAL) AST (SGOT) (11/27/2024 5:47 AM ICER MACHINE) AST (SGOT) 179(H) 10 - 35 IU/L 11/27/2024 7:11 AM ICER MACHINE [facility] Blood BLOOD SPECIMEN / Unknown Venipuncture / Unknown 11/27/2024 5:47 AM ICER MACHINE 11/27/2024 6:51 AM ICER MACHINE us Alexis Leach NP CHEMISTRY Fin al Result Performing Organization Address [facility] de Phone Number [facility] [address] [place] [address] * PLATELET COUNT (11/24/2024 7:39 AM ICER MACHINE) PLATELET COUNT 154 140 - 440 thou/cu mm 11/24/2024 8:16 AM ICER MACHINE [facility] MPV 11.0 6.5 - 11.0 fL 11/24/2024 8:16 AM ICER MACHINE [facility] Blood BLOOD SPECIMEN / Unknown Venipuncture / Unknown 11/24/2024 7:39 AM ICER MACHINE 11/24/2024 8:08 AM ICER MACHINE Alexis Leach SIGN WRITER LETTERER OR PAINTER HEMATOLOGY Fin al Result Performing Organization Address [facility] de Phone Number [facility] [address] [place] [address] * (ABNORMAL) URINALYSIS MICROSCOPIC (11/23/2024 7:02 PM ICER MACHINE) RBC 0-2 0-2, None Seen /HPF 11/23/2024 7:36 PM ICER MACHINE [facility] WBC 11-25(A) 0-2, 3-5, None Seen /HPF 11/23/2024 7:36 PM ICER MACHINE [facility] BACTERIA Many(A) None Seen, Rare, Few Bacteria/ HPF 11/23/2024 7:36 PM ICER MACHINE [facility] EPITHELIAL CELLS Few None Seen, Few Epi/HPF 11/23/2024 7:36 PM ICER MACHINE [facility] CALCIUM OXALATE CRYSTALS Present(A) (none) 11/23/2024 7:36 PM ICER MACHINE [facility] Urine URINE SPECIMEN / Unknown Non-Blood / Unknown 11/23/2024 7:02 PM ICER MACHINE 11/23/2024 7:07 PM ICER MACHINE us Yi Galeas PA URINE Final Resul t Performing Organization Address City/[facility]/ZIP Co de Phone Number [facility] [address] [place] [address] * URINE CULTURE (11/23/2024 7:02 PM ICER MACHINE) CULTURE 10-50,000 CFU/mL of multiple organisms, probable contaminants 11/24/2024 1:36 PM ICER MACHINE [facility] Urine URINE SPECIMEN / Unknown Non-Blood / Unknown 11/23/2024 7:02 PM ICER MACHINE 11/23/2024 7:04 PM ICER MACHINE us Alexis Leach NP MICROBIOLOGY Fin al Result [facility] [address] [place] [address], [place] * (ABNORMAL) UA W/ SEDIMENT EXAM REFLEXED PER CRITERIA (11/23/2024 7:02 PM ICER MACHINE) COLOR Yellow Yellow Color 11/23/2024 7:36 PM [facility] CLARITY Clear Clear Clarity 11/23/2024 7:36 PM [facility] SPECIFIC GRAVITY,URINE 1.010 1.010, 1.015, 1.020, 1.025 11/23/2024 7:36 PM [facility] PH,URINE 5.5 6.0, 7.0, 8.0, 5.5, 6.5, 7.5, 8.5 11/23/2024 7:36 PM [facility] UROBILINOGEN, QUALITATIVE Normal Normal EU/dl 11/23/2024 7:36 PM [facility] PROTEIN, URINE Negative Negative mg/dL 11/23/2024 7:36 PM [facility] GLUCOSE, URINE Negative Negative mg/dL 11/23/2024 7:36 PM [facility] KETONES,URINE Negative Negative mg/dL 11/23/2024 7:36 PM [facility] BILIRUBIN,URI NE Negative Negative 11/23/2024 7:36 PM [facility] OCCULT BLOOD,URINE Negative Negative 11/23/2024 7:36 PM [facility] NITRITE Negative Negative 11/23/2024 7:36 PM [facility] LEUKOCYTE ESTERASE Small(A) Negative 11/23/2024 7:36 PM [facility] Urine URINE SPECIMEN / Unknown Non-Blood / Unknown 11/23/2024 7:02 PM ICER MACHINE 11/23/2024 7:07 PM ICER MACHINE us Yi Galeas PA URINE Final Resul t [facility] [address] [place] [address] * US ABDOMEN LIMITED RUQ (11/23/2024 4:14 PM ICER MACHINE) Anatomical Region Laterality Modality Abdomen, LIVER Ultrasound 11/23/2024 4:42 PM ICER MACHINE Impressions 11/23/2024 4:42 PM ICER MACHINE Unremarkable right upper quadrant ultrasound. Dictated by Dangelo Gregorio MD @ 11/23/2024 4:42:17 PM (Electronically Signed) Narrative 11/23/2024 4:42 PM ICER MACHINE For Patients: As a result of the [...] CBC WITH AUTO DIFFERENTIAL (11/23/2024 2:55 PM ICER MACHINE) Only the most recent of2 resultswithin the time period is included. WHITE BLOOD COUNT 9.0 4.5 - 11.0 thou/cu mm 11/23/2024 3:28 PM [facility] RED BLOOD COUNT 4.16 4.00 - 5.20 mil/cu mm 11/23/2024 3:28 PM [facility] HEMOGLOBIN 12.9 12.0 - 16.0 g/dL 11/23/2024 3:28 PM [facility] HEMATOCRIT 38.3 33.0 - 51.0 % 11/23/2024 3:28 PM [facility] MCV 92 80 - 100 fL 11/23/2024 3:28 PM [facility] MCH 31.0 26.0 - 34.0 pg 11/23/2024 3:28 PM [facility] MCHC 33.7 32.0 - 36.0 g/dL 11/23/2024 3:28 PM [facility] RDW 15.7(H) 11.5 - 15.5 % 11/23/2024 3:28 PM [facility] PLATELET COUNT 151 140 - 440 thou/cu mm 11/23/2024 3:28 PM [facility] MPV 10.7 6.5 - 11.0 fL 11/23/2024 3:28 PM [facility] Blood BLOOD SPECIMEN / Unknown Capillary / Unknown 11/23/2024 2:55 PM ICER MACHINE 11/23/2024 2:58 PM ICER MACHINE us Yi LUBIN HEMATOLOGY Final Resul t Performing Organization Address [facility] Co de Phone Number [facility] [address] [place] [address] * (ABNORMAL) RED CELL MORPHOLOGY (11/23/2024 2:55 PM ICER MACHINE) Pathologist [facility] POLYCHROMASIA Slight 11/23/2024 3:28 PM ICER MACHINE [facility] RBC COMMENT Present(A) RBC morphology appears normal, RBC morphology within normal limits for newborns. 11/23/2024 3:28 PM ICER MACHINE [facility] LARGE PLATELETS Present 3:28 PM ICER MACHINE [facility] Blood BLOOD SPECIMEN / Unknown Capillary / Unknown 11/23/2024 2:55 PM ICER MACHINE 11/23/2024 2:58 PM ICER MACHINE us Yi LUBIN HEMATOLOGY Final Resul t Performing Organization Address [facility] Co de Phone Number [facility] [address] [place] [address] * PLATELET ESTIMATE (11/23/2024 2:55 PM ICER MACHINE) [facility] PLATELET ESTIMATE Adequate Adequate, No estimate 11/23/2024 3:28 PM ICER MACHINE [facility] Blood BLOOD SPECIMEN / Unknown Capillary / Unknown 11/23/2024 2:55 PM ICER MACHINE 11/23/2024 2:58 PM ICER MACHINE us Yi LUBIN HEMATOLOGY Final Resul t Performing Organization Address [facility]/ZIP Co de Phone Number [facility] [address] [place] [address] * (ABNORMAL) MANUAL DIFFERENTIAL (11/23/2024 2:55 PM ICER MACHINE) [facility] % NEUTROPHILS 61.0 % 11/23/2024 3:28 PM [facility] % LYMPHOCYTES 33.0 % 11/23/2024 3:28 PM [facility] % MONOCYTES 4.0 % 11/23/2024 3:28 PM [facility] % EOSINOPHILS 2.0 % 11/23/2024 3:28 PM [facility] % BASOPHILS 0.0 % 11/23/2024 3:28 PM [facility] NEUTROPHILS ABSOLUTE 5.5 1.7 - 7.0 thou/cu mm 11/23/2024 3:28 PM [facility] LYMPHOCYTES ABSOLUTE 3.0(H) 0.9 - 2.9 thou/cu mm 11/23/2024 3:28 PM [facility] MONOCYTES ABSOLUTE 0.4 <0.9 thou/cu mm 11/23/2024 3:28 PM [facility] EOSINOPHILS ABSOLUTE 0.2 <0.5 thou/cu mm 11/23/2024 3:28 PM [facility] BASOPHILS ABSOLUTE 0.0 <0.3 thou/cu mm 11/23/2024 3:28 PM [facility] Blood BLOOD SPECIMEN / Unknown Capillary / Unknown 11/23/2024 2:55 PM [facility] 11/23/2024 2:58 PM [facility] us Yi LUBIN HEMATOLOGY Final Resul t [facility] [address], [place] [id number] * LACTATE VENOUS (11/23/2024 2:50 PM [facility]) Only the most recent of2 resultswithin the time period is included. LACTATE,VENOUS 1.7 0.5 - 2.0 mmol/L 11/23/2024 3:14 PM [facility]INE [facility] Blood BLOOD SPECIMEN / Unknown Butterfly / Unknown 11/23/2024 2:50 PM [facility]INE 11/23/2024 2:53 PM ICER MACHINE us Yi LUBIN CHEMISTRY Final Resul t Performing Organization Address City/[facility]/ZIP Co de Phone Number [facility] [address], [place] [phone] * LIPASE (11/23/2024 2:50 PM ICER MACHINE) Only the most recent of2 resultswithin the time period is included. LIPASE 43.0 13.0 - 60.0 IU/L 11/23/2024 3:14 PM ICER MACHINE [facility] Blood BLOOD SPECIMEN / Unknown Butterfly / Unknown 11/23/2024 2:50 PM ICER MACHINE 11/23/2024 2:53 PM ICER MACHINE us Yi LUBIN CHEMISTRY Final Resul t Performing Organization Address City/[facility]/ZIP Co de Phone Number [facility] [address] [place] [address] * (ABNORMAL) TROPONIN T (HS) ONE TIME (11/20/2024 10:33 PM ICER MACHINE) Pathologist [facility] TROPONIN T HS 25(H) 6-10 ng/L ng/L 11/20/2024 11:00 PM ICER MACHINE [facility] Blood BLOOD SPECIMEN / Unknown Butterfly / Unknown 11/20/2024 10:33 PM ICER MACHINE 11/20/2024 10:36 PM ICER MACHINE us Tanvir Rodriguez MD CHEMISTRY Final Res ult Performing Organization Address [facility]/ZIP Co de Phone Number [facility] [address] [place] [address] * CT ABDOMEN PELVIS W (11/20/2024 10:19 PM ICER MACHINE) Anatomical Region Laterality Modality Abdomen, Pelvis, AORTA, LIVER, SPLEEN Computed Tomography 11/20/2024 10:2 8 PM ICER MACHINE Impressions 11/20/2024 10:28 PM ICER MACHINE No acute intra-abdominal/pelvic abnormality. Severe colonic diverticulosis [...] PM (Electronically Signed) Narrative 11/20/2024 10:28 PM ICER MACHINE For Patients: As a result of the [...] CT CHEST PE STUDY (11/20/2024 10:18 PM ICER MACHINE) Anatomical Region Laterality Modality CHEST, THORAX, HEART Computed To mography 11/20/2024 10:4 0 PM ICER MACHINE Narrative 11/20/2024 10:40 PM ICER MACHINE For Patients: As a result of the 21st Century Cures Act, medical imaging exams and [...] For Patients: As a result of the 21st Century Cures Act, medical imagingexams and procedure reports [...] (HS) ACUTE W/2HR REFLEX (11/20/2024 8:29 PM ICER MACHINE) TROPONIN T HS 28(H) 6-10 ng/L ng/L 11/20/2024 9:00 PM [facility] Blood BLOOD SPECIMEN / Unknown Butterfly / Unknown 11/20/2024 8:29 PM ICER MACHINE 11/20/2024 8:32 PM ICER MACHINE [facility] - 11/20/2024 9:00 PM ICER MACHINE hs-cTnT (Elecsys Troponin T Gen 5) concentration [...] low risk in emergency department patient population. Tanvir Rodriguez MD CHEMISTRY Final Res ult Performing Organization Address [facility] Co de Phone Number [facility] [address] [place] [address] * (ABNORMAL) BLOOD GAS,VENOUS (11/20/2024 8:29 PM ICER MACHINE) PH, VENOUS 7.43 7.32 - 7.43 11/20/2024 8:47 PM [facility] PCO2, VENOUS 46 41 - 51 mmHg 11/20/2024 8:47 PM [facility] PO2, VENOUS 38 35 - 40 mmHg 11/20/2024 8:47 PM [facility] HCO3,VENOUS 31(H) 22 - 29 mmol/L 11/20/2024 8:47 PM [facility] BASE EXCESS, VENOUS, POCT 5.3(H) -2.0 - 3.0 11/20/2024 8:47 PM [facility] O2 SATURATION, VENOUS 65(L) 70 - 75 % 11/20/2024 8:47 PM [facility] Blood BLOOD SPECIMEN / Unknown Butterfly / Unknown 11/20/2024 8:29 PM ICER MACHINE 11/20/2024 8:32 PM ICER MACHINE us Tanvir Rodriguez MD CHEMISTRY Final Res ult Performing Organization Address [facility]/ZIP Co de Phone Number [facility] [address] [place] [address] * (ABNORMAL) D-Dimer, Quantitative (11/20/2024 8:29 PM ICER MACHINE) D-DIMER,QUANTI TATIVE 1.22 See comment FEU mcg/mL 11/20/2024 8:49 PM ICER MACHINE [facility] D-DIMER INTERP Abnormal( A) 11/20/2024 8:49 PM [facility] Blood BLOOD SPECIMEN / Unknown Butterfly / Unknown 11/20/2024 8:29 PM ICER MACHINE 11/20/2024 8:32 PM ICER MACHINE [facility] - 11/20/2024 8:49 PM ICER MACHINE The cut off value for exclusion of Deep Vein Thrombosis and / or Pulmonary Embolism is 0.50 FEU mcg/mL For patients greater than 50 years of age the upper limit is age dependent and was calculated with the formula: (PATIENT AGE x 0.01) FEU mcg/mL = Upper limit of normal range us Tanvir Rodriguez MD HEMATOLOGY Final Res ult [facility] [address] [place] [id number] * (ABNORMAL) PRO-BNP (11/20/2024 8:29 PM ICER MACHINE) [facility] PRO-BNP 4,829(H) <450 pg/mL 11/20/2024 10:05 PM [facility] Blood BLOOD SPECIMEN / Unknown Butterfly / Unknown 11/20/2024 8:29 PM ICER MACHINE 11/20/2024 8:32 PM ICER MACHINE [facility] - 11/20/2024 10:05 PM ICER MACHINE The following cut-points have been suggested for [...] of 72% for acute congestive heart failure. us Tanvir Rodriguez MD SEND OUTS Final Res ult [facility] [address] [facility] [place] [address] * (ABNORMAL) Comp Metabolic Panel (11/20/2024 8:29 PM [facility]) SODIUM 144 136 - 145 mmol/L 11/20/2024 9:00 PM [facility] POTASSIUM 4.0 3.5 - 5.1 mmol/L 11/20/2024 9:00 PM [facility] CHLORIDE 104 98 - 107 mmol/L 11/20/2024 9:00 PM [facility] CO2,TOTAL 26 22 - 29 mmol/L 11/20/2024 9:00 PM [facility] ANION GAP 14 5 - 18 11/20/2024 9:00 PM [facility] GLUCOSE 127(H) 70 - 99 mg/dL 11/20/2024 9:00 PM [facility] CALCIUM 9.1 8.8 - 10.4 mg/dL 11/20/2024 9:00 PM [facility] Comment: Reference ranges for this test were updated on 09/04/2024 to reflect our healthy population more accurately. Reference range changes are not retroactively applied to results, but previous results using the same methodology can be interpreted in the context of the new reference range. BUN 24(H) 8 - 23 mg/dL 11/20/2024 9:00 PM [facility] CREATININE 1.20(H) 0.50 - 0.90 mg/dL 11/20/2024 9:00 PM [facility] BUN/CREAT RATIO 20 10 - 20 9:00 PM [facility] eGFR 44(L) >90 mL/min/1. 73m2 11/20/2024 9:00 PM [facility] Comment:As of 2022, eG FR is calculated by the CKD-EPI creatinine equation without race adjustment. eGFR can be influenced by muscle mass, exercise, and diet. The reported eGFR is an estimation only and is only applicable if the renal function is stable. ALBUMIN 3.8(L) 4.0 - 4.9 g/dL 11/20/2024 9:00 PM [facility] PROTEIN,TOTAL 6.5 6.0 - 8.0 g/dL 11/20/2024 9:00 PM [facility] BILIRUBIN,TOTAL 1.2 0.0 - 1.2 mg/dL 11/20/2024 9:00 PM [facility] ALK PHOSPHATASE 106(H) 35 - 104 IU/L 11/20/2024 9:00 PM [facility] ALT (SGPT) 20 10 - 35 IU/L 11/20/2024 9:00 PM [facility] AST (SGOT) 30 10 - 35 IU/L 11/20/2024 9:00 PM [facility] Blood BLOOD SPECIMEN / Unknown Butterfly / Unknown 11/20/2024 8:29 PM ICER MACHINE 11/20/2024 8:32 PM ICER MACHINE us Tanvir Rodriguez MD CHEMISTRY Final Res ult Performing Organization Address City/[facility] Co de Phone Number [facility] [address] [place] [address] * EKG 12 LEAD (11/20/2024 8:13 PM ICER MACHINE) Interpretation Ventricula r-paced rhythm Abnormal ECG BEYOND NOW Ventricular Rate 64 BPM [facility]YOND NOW Atrial Rate 58 BPM BEYOND NOW P-R Interval ms BEYOND NOW QRS Duration 172 ms BEYOND NOW QT 460 ms BEYOND NOW QTc 474 ms BEYOND NOW P [place] degrees BEYOND NOW R [place] -89 degrees BEYOND NOW T [place] 60 degrees BEYOND NOW 11/20/2024 8:13 PM ICER MACHINE 11/20/2024 10:11 PM ICER MACHINE us Tanvir Rodriguez MD EKG ORD Final Res ult Performing Organization Address [facility] Co de Phone Number [place], [place] * INFLUENZA A/B PCR (11/20/2024 8:02 PM ICER MACHINE) INFLUENZA A PCR NOT Detected 11/20/2024 8:58 PM ICER MACHINE [facility] INFLUENZA B PCR NOT Detected 11/20/2024 8:58 PM ICER MACHINE [facility] Other SPECIMEN FROM NASOPHARYNGEAL STRUCTURE / Unknown Non-Blood / Unknown 11/20/2024 8:02 PM ICER MACHINE 11/20/2024 8:16 PM ICER MACHINE us Montserrat LUBIN MICROBIOLOGY Final R esult [facility] [address] [place] [address] from Last 3 Months Insurance MEDICARE PART B HB ONLY [place] HB ONLY MEDICARE PART A HB ONLY [place] MR PB ONLY [place] BL[place] HB ONLY HC MEDICARE PPS Advance Directives Documents on File Type Date Recorded 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
--- NOTE | 2025-01-27 17:40 | ED.FALL ---
HPI - Fall General Time Seen by Provider: 17:41 Date Seen: 01/27/25 Chief Complaint: Fall/Minor Trauma Stated Complaint: Fall Source: patient, RN notes reviewed and old records reviewed Mode of arrival: ambulatory Limitations: no limitations History of Present Illness HPI Narrative: This 84-year-old female was brought in by ambulance after witness fall and hitting her head. Patient is anticoagulated. She is on Coumadin poor her med rec but she cannot tell me, laughs when ask if she is on Coumadin. She cannot recollect what medicines she is on. She was not noted to have loss of consciousness, denies it to me. She denies any headache, no facial pain, no visual changes. She states she was getting up to walk around the table to go to the bathroom, going into the bathroom she hit the left side of her head on the door frame, this is what caused her to actually fall down. She states nothing hurts. She reportedly was assisted to the ground, was witnessed. She is at [address] [place] [address] living brutus. It is possible that she actually tripped and fell into the door while walking, difficult to stay at at this time. She believes hitting her head is what caused her to fall. She denies any chest pain, no cough or cold symptoms, states she has not been sick with anything. Her neck, her back, chest, abdomen, extremities are without any acute pain complaints at this time. Did look in epic in her recent records here, do not see an up-to-date INR. Patient is noted to have cognitive impairment. MD complaint: fall Related Data Home Medications ?Medication ?Instructions ?Recorded ?Confirmed acetaminophen 500 mg tablet 1,000 mg PO BID 12/24/24 01/01/25 albuterol sulfate 90 mcg/actuation 2 puff inhalation Q4H PRN wheezing 12/24/24 01/01/25 aerosol inhaler allopurinol 100 mg tablet 100 mg PO DAILY 12/24/24 01/01/25 aspirin 81 mg tablet,delayed 81 mg PO DAILY 12/24/24 01/01/25 release atorvastatin 40 mg tablet 40 mg PO QPM 12/24/24 01/01/25 calcium 600 mg (as 1 tab PO DAILY 12/24/24 01/01/25 carbonate)-vitamin D3 10 mcg (400 unit) tablet carvedilol 12.5 mg tablet 12.5 mg PO BID 12/24/24 01/01/25 diclofenac sodium 1 % topical gel 2 g topical QID PRN 12/24/24 01/01/25 (Arthritis Pain (diclofenac)) enalapril maleate 20 mg tablet 20 mg PO BID 12/24/24 01/01/25 fluticasone fur. 200 mcg-umeclid 1 ea inhalation DAILY 12/24/24 01/01/25 62.5 mcg-vilant 25 mcg inhalat.powder (Trelegy Ellipta) potassium chloride 20 mEq 20 meq PO BID 12/24/24 01/01/25 tablet,extended release torsemide 20 mg tablet 40 mg PO BID 12/24/24 01/01/25 vitamins A,C,D-opzl-zujzee 2,148 1 tab PO DAILY 12/25/24 01/01/25 mcg-113 mg-45 mg-17.4 mg tablet (Eye Multivitamin) warfarin 2 mg tablet 2 mg PO SUTUTHSA 12/25/24 01/01/25 warfarin 3 mg tablet 3 mg PO MOWEFR 12/25/24 01/01/25 Previous Rx's ?Medication ?Instructions ?Recorded albuterol sulfate 2.5 mg/3 mL 2.5 mg (3 mL) NEB Q4H PRN wheezing 12/27/24 (0.083 %) solution for nebulization 30 days #30 ea Allergies Allergy/AdvReac Type Severity Reaction Status Date / Time oxycodone Allergy Unknown Verified 01/27/25 17:39 Review of Systems Status of ROS: Reports: 6 or more systems reviewed and unremarkable except as noted in History and below [facility] Medical History Cognitive impairment ?R41.89 - Other symptoms and signs involving cognitive functions and awareness (ICD-10) Pancreatic cyst ?K86.2 - Cyst of pancreas (ICD-10) Lung nodule ?R91.1 - Solitary pulmonary nodule (ICD-10) Rhabdomyolysis ?M62.82 - Rhabdomyolysis (ICD-10) Breast cancer ?C50.919 - Malignant neoplasm of unspecified site of unspecified female breast (ICD-10) Obesity ?E66.9 - Obesity, unspecified (ICD-10) Heart failure with preserved ejection fraction ?I50.30 - Unspecified diastolic (congestive) heart failure (ICD-10) History of cardiac pacemaker ?Z95.0 - Presence of cardiac pacemaker (ICD-10) Sleep apnea ?G47.30 - Sleep apnea, unspecified (ICD-10) Paroxysmal atrial fibrillation ?I48.0 - Paroxysmal atrial fibrillation (ICD-10) Chronic anticoagulation ?Z79.01 - 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 supervisor (current) use of anticoagulants (ICD-10) Hypertension ?I10 - Essential (primary) hypertension (ICD-10) Stage 3 chronic kidney disease ?N18.30 - Chronic kidney disease, stage 3 unspecified (ICD-10) COPD exacerbation ?J44.1 - Chronic obstructive pulmonary disease with (acute) exacerbation (ICD-10) Surgical History S/p total knee replacement, bilateral ?Z96.653 - Presence of artificial knee joint, bilateral (ICD-10) S/P oophorectomy History of aortic valve replacement with bioprosthetic valve ?Z95.3 - Presence of xenogenic heart valve (ICD-10) Social History Narrative: Until last month she was living independently at home. Then hospitalized with weakness and multiple other medical problems. Now at [address] [place] [address]. She is present here with her son, Kenneth, and [id number]. Kenneth is healthcare power of admitted attorneys. Code status is DNR. Former smoker having quit about 40 years ago. Previously drank alcohol regularly but not currently drinking What is your current living situation?: I presently have a place to live Problems where you live: no known problems Problems where you live details: N/A In the past 12 months, utilities in danger of being shut off: no In past 12 months, lack of transportation kept you from medical appts, meetings, work, or getting things needed for daily living: no In the past 12 mos, have been you worried that your food would run out before you had money to buy more?: never true In the past 12 mos, the food you bought just didn't last and you didn't have money to buy more?: never true Highest level of school completed/degree received: high school graduate Smoking Status: Former smoker How often do you have a drink containing alcohol: never How often do you have six or more drinks on one occasion: Never AUDIT-C Alcohol total score: 0 Non-prescribed substance use: denies use How often does anyone, including family, friends and others, physically hurt you: never How often does anyone, including family, friends and others, insult or talk down to you: never How often does anyone, including family, friends and others, threaten you with harm: never How often does anyone, including family, friends and others, scream or curse at you: never service: No Exam Const: Vital Signs, click to edit/add: Vital Signs - 24 hr 01/27/25 17:32 01/27/25 18:59 Temperature 97.2 F L Pulse Rate 61 Pulse Rate [Pulse Oximeter] 68 Respiratory Rate 16 18 Blood Pressure 154/86 H Blood Pressure [Ri ght Upper Arm] 128/83 Pulse Oximetry 93 94 Oxygen Delivery Me thod Nasal Cannula Room Air Oxygen Flow Rate 2 This 84-year-old female is alert, interactive, no apparent distress. She has bruising and swelling on the left upper frontal forehead consistent with a hematoma. There is no open wound. Pupils equal round reactive, sclerae clear, extraocular muscles intact. Face elsewhere atraumatic. Her speech is normal. Symmetrical facial function. Neck is supple, no tenderness. Lungs are clear, good air entry, no wheezing crackles. CV regular rate and rhythm, systolic murmur heard, normal S1-S2. Abdomen is soft, nontender, nondistended, no organomegaly noted or masses. She has good hand hospital intern strengths, follows commands with her arms and legs, note no focal neurologic deficit in her extremities. She has some chronic changes to her lower extremities that maybe from stasis dermatitis but I do not appreciate any significant edema at this time, no concern for active infection such as cellulitis. Documenting provider has reviewed patient's vital signs: yes Course Course ED Course: Will obtain some basic including INR. She will go to heads CTs to rule out acute intracranial pathology. There does seem to be witnessed fall and mechanism that does not support underlying medical issue. Reevaluation(s) Time of Reevaluation #1: 20:03 Reevaluation #1: Patient's workup is complete, she remains stable. No evidence of any intracranial bleeding. INR is 1.76, [facility] Conservative management for the forehead hematoma. Vital Signs Vital signs: Initial Vital Signs Pulse Rate 68 01/27/25 17:32 Respiratory Rate 16 01/27/25 17:32 Blood Pressure 128/83 01/27/25 17:32 Blood Pressure Mean 98 01/27/25 17:32 Pulse Oximetry 93 01/27/25 17:32 Oxygen Delivery Method Nasal Cannula 01/27/25 17:32 Oxygen Flow Rate 2 01/27/25 17:32 Vital Signs Pulse Rate 68 01/27/25 17:32 Respiratory Rate 16 01/27/25 17:32 Blood Pressure 128/83 01/27/25 17:32 Pulse Oximetry 93 01/27/25 17:32 Oxygen Delivery Method Nasal Cannula 01/27/25 17:32 Oxygen Flow Rate 2 01/27/25 17:32 Temperature 97.2 F L 01/27/25 18:59 Pulse Rate 61 01/27/25 18:59 Respiratory Rate 18 01/27/25 18:59 Blood Pressure 154/86 H 01/27/25 18:59 Pulse Oximetry 94 01/27/25 18:59 Oxygen Delivery Method Room Air 01/27/25 18:59 Oxygen Flow Rate 2 01/27/25 17:32 MDM - Fall Lab Data Attestation: I reviewed the patient's lab results. Labs: Lab Results 01/27/25 Range/Units 18:45 WBC 9.70 (4.50-11.00) K/uL RBC 5.03 (4.00-5.20) m/uL Hgb 15.4 (12.0-16.0) gm/dL Hct 47.9 (33.0-51.0) % MCV 95 (80-100) fL MCH 31 (26-34) pg MCHC 32 (32-36) gm/dL RDW Coeff of Jarrett 15.3 (11.5-15.5) % Plt Count 214 (140-440) K/uL Neut % (Auto) 70.8 (42.0-72.0) % Lymph % (Auto) 18.5 L (20-44) % [place] % (Auto) 8.1 (0.0-11.0) % Eos % (Auto) 0.9 (0.0-7.0) % Baso % (Auto) 0.8 (0.0-3.0) % Neut # (Auto) 6.86 (1.7-7.0) K/uL Lymph # (Auto) 1.80 (0.90-2.90) K/uL [place] # (Auto) 0.80 (0.00-0.90) K/UL Eos # (Auto) 0.09 (0.00-0.50) K/uL Baso # (Auto) 0.08 (0.00-0.30) K/uL Abs Immat Gran (auto) 0.09 (0.00-0.30) K/uL Imm/Tot Granulo (auto) 0.9 % INR 1.76 H (0.91-1.10) Sodium 144 (135-149) mmol/L Potassium 3.9 (3.6-5.1) mmol/L Chloride 102 (96-114) mmol/L Carbon Dioxide 34 H (20-32) mmol/L Anion Gap 8 (7-15) mEq/L BUN 22 (7-30) mg/dL Creatinine 1.1 (0.5-1.5) mg/dL Estimated Creat Clear 35.00 Estimated GFR 49 ml/min Glucose 103 (60-115) mg/dL Calcium 9.2 (8.4-10.6) mg/dL Imaging Data CT scan - head: Attestation: I have reviewed the pertinent imaging results. Radiologist's impression: Patient: FELICE BRADFORD Facility:?[facility] Patient ID:?[id number] Site Patient ID:?[id number]. Site :?[id number] Study:?CT-Head W/O-01/27/2025 5:59:09 PM Ordering Physician:?Kady Guerra Final Report: INDICATION: FALL, HIT HEAD, ON COUMADIN TECHNIQUE: CT of the head without contrast. Coronal and sagittal reformats. Bone and soft tissue algorithms. COMPARISON: CT 01/02/2025 FINDINGS: No acute intracranial hemorrhage or extra-axial collection. No evidence of acute cortical infarction. Hyperostosis internus. Chronic lacunar infarct in the left caudate nucleus. No mass effect or midline shift. Mild generalized parenchymal volume loss. Mild regions of decreased attenuation within the periventricular and subcortical white matter of both cerebral hemispheres most likely reflect chronic microvascular ischemic disease and age related change in this patient. Vascular calcifications within the carotid siphons. Orbital contents are normal. No calvarial fractures. No lytic or sclerotic osseous lesions within the calvarium or skull base. Scalp and other imaged soft tissue structures are normal. Mastoid air cells are clear. Moderate mucosal thickening of the right maxillary sinus. IMPRESSION: 1. No acute intracranial abnormality. 2. Moderate left frontal scalp hematoma. 3. Chronic lacunar infarct in the left caudate nucleus. Please note that all CT scans at this facility use dose modulation, iterative reconstruction, and/or weight-based dosing when appropriate to reduce radiation dose to as low as reasonably achievable. Dictated by Jacoby Dong MD @ 01/27/2025 6:25:18 PM (Electronic Signature) Discharge Plan Discharge Clinical Impression: Fall, Chronic anticoagulation, Traumatic hematoma of forehead Patient Disposition: Home, Self-Care Condition: Stable Instructions: Fall Prevention for Older Adults (ED), Hematoma (ED) Additional Instructions: Protime/INR here tonight was 1.76. White blood count and hemoglobin were stable, basic metabolic panel was stable. Head CT showed no evidence of any intracranial bleeding or fracture. You do have a hematoma on the left forehead. Can use Tylenol 1000 mg up to 3 times a day for any localized pain over the forehead or headache from this. Do recommend using ice to the forehead for the next couple of days to help decrease the swelling and bleeding. Activity Level: Activity as Tolerated Prescriptions: No Action acetaminophen 500 mg tablet 1,000 mg PO BID allopurinol 100 mg tablet 100 mg PO DAILY albuterol sulfate 90 mcg/actuation HFA aerosol inhaler 2 puff INHALATION Q4H PRN (Reason: wheezing) atorvastatin 40 mg tablet 40 mg PO QPM carvedilol 12.5 mg tablet 12.5 mg PO BID torsemide 20 mg tablet 40 mg PO BID Patient Comments: TAKE TWO TABLETS (40MG) BY MOUTH TWICE A DAY enalapril maleate 20 mg tablet 20 mg PO BID aspirin 81 mg tablet,delayed release (DR/EC) 81 mg PO DAILY calcium carbonate-vitamin D3 600 mg-10 mcg (400 unit) tablet 1 tab PO DAILY diclofenac sodium [Arthritis Pain (diclofenac)] 1 % gel 2 g topical QID PRN potassium chloride 20 mEq tablet extended release 20 meq PO BID Trelegy Ellipta 200-62.5-25 mcg blister with device 1 ea INHALATION DAILY warfarin 2 mg tablet 2 mg PO SUTUTHSA warfarin 3 mg tablet 3 mg PO MOWEFR Eye Multivitamin 2,148 mcg-113 mg-45 mg-17.4mg tablet 1 tab PO DAILY albuterol sulfate 2.5 mg /3 mL (0.083 %) Solution For Nebulization 2.5 mg NEB Q4H PRN (Reason: wheezing) 30 Days Qty: 30 0RF Follow Up/Referrals: Johnathan Lopez MD [Primary Care Provider] - Stand Alone Forms: MyHealth Info Instructions
--- NOTE | 2025-01-27 17:44 | CRLHL7_ITS ---
For Patients: As a result of the Century Cures Act, medical imaging exams and procedure reports are released immediately into your electronic medical record. You may view this report before your referring provider. If you have questions, please contact your health care provider. INDICATION: FALL, HIT HEAD, ON COUMADIN TECHNIQUE: CT of the head without contrast. Coronal and sagittal reformats. Bone and soft tissue algorithms. COMPARISON: CT 01/02/2025 FINDINGS: No acute intracranial hemorrhage or extra-axial collection. No evidence of acute cortical infarction. Hyperostosis internus. Chronic lacunar infarct in the left caudate nucleus. No mass effect or midline shift. Mild generalized parenchymal volume loss. Mild regions of decreased attenuation within the periventricular and subcortical white matter of both cerebral hemispheres most likely reflect chronic microvascular ischemic disease and age related change in this patient. Vascular calcifications within the carotid siphons. Orbital contents are normal. No calvarial fractures. No lytic or sclerotic osseous lesions within the calvarium or skull base. Scalp and other imaged soft tissue structures are normal. Mastoid air cells are clear. Moderate mucosal thickening of the right maxillary sinus. IMPRESSION: 1. No acute intracranial abnormality. 2. Moderate left frontal scalp hematoma. 3. Chronic lacunar infarct in the left caudate nucleus. Please note that all CT scans at this facility use dose modulation, iterative reconstruction, and/or weight-based dosing when appropriate to reduce radiation dose to as low as reasonably achievable. Dictated by Jacoby Dong MD @ 01/27/2025 6:25:18 PM (Electronically Signed)
[2025-01-27 18:59] VITALS: BP 154/86; PULSE 61; RESP 18; TEMP 36.2; O2SAT 94
[2025-01-27 19:08] LABS: Basophils Absolute Auto 0.08 K/uL (0.00-0.30); Basophils Percent Auto 0.8 % (0.0-3.0); Chloride* 102 mmol/L (96-114); Eosinophils Absolute Auto 0.09 K/uL (0.00-0.50); Eosinophils Percent Auto 0.9 % (0.0-7.0); Hematocrit 47.9 % (33.0-51.0); Hemoglobin* 15.4 gm/dL (12.0-16.0); Immature Granulocytes Abs Auto 0.09 K/uL (0.00-0.30); Immature Granulocytes Pct Auto 0.9 %; Lymphocytes Percent Auto 18.5 % (20-44); Mean Corpuscular HGB Conc 32 gm/dL (32-36); Mean Corpuscular Hemoglobin 31 pg (26-34); Mean Corpuscular Volume 95 fL (80-100); Monocytes Percent Auto 8.1 % (0.0-11.0); Neutrophils Absolute Auto 6.86 K/uL (1.7-7.0); Neutrophils Percent Auto 70.8 % (42.0-72.0); Platelet Count* 214 K/uL (140-440); Potassium* 3.9 mmol/L (3.6-5.1); RDW Coefficient of Variation % 15.3 % (11.5-15.5); Red Blood Count 5.03 m/uL (4.00-5.20); Slide Review Reflex No; Sodium* 144 mmol/L (135-149)
[2025-01-27 19:11] LABS: Blood Urea Nitrogen* 22 mg/dL (7-30); Creatinine* 1.1 mg/dL (0.5-1.5); Estimated Glomerular Filt Rate 49 ml/min
[2025-01-27 19:12] LABS: Anion Gap 8 mEq/L (7-15); Calcium* 9.2 mg/dL (8.4-10.6); Carbon Dioxide* 34 mmol/L (20-32); Glucose* 103 mg/dL (60-115)
[2025-01-27 19:20] LABS: INR 1.76 (0.91-1.10); Prothrombin Time 21.5 Seconds
--- OUTSIDE RECORDS SUMMARY | 2025-01-27 20:07 | XMS_ITS | Clinical Summary ---
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 022 Chronic heart failure 04/25/2022 Viral [...] 04/28/2017 04/29/2017 Impaired renal function 04/02 Acute ND 04/29/2017 Overview (04/26/2017): 20 yrs ago- stent placement HTN (hypertension) 7 Encounters Date Type Department Care Team Description 01/02/2025 Office Visit [facility] [address] [place] [address] Thong Morales MD Telehealth ([facility] ) 01/01/2025 Office Visit [facility] [address] [place] [address] Thong Morales MD Telehealth ([facility]) 12/06/2024 Lab Requisition [facility] [phone] Ermelinda Vicente NP 12/03/2024 Lab Requisition [facility] [phone] Johnathan Lopez MD 11/23/2024 2:32 PM LEGAL BILLING SPECIALIST - 11/28/2024 12:58 PM LEGAL BILLING SPECIALIST Hospital Encounter [facility] [address] [place] [address] Yi Galeas, TRISTIAN Quintanilla, Yandy Estes, DO Bonilla, Shaan Dozier, DO Leach, Alexis Reid, BUTADIENE CONVERTER UTILITY OPERATOR Joselito, Shalom Flores, DO Aracelis Simms, MD Lee Hernandez Joan R, MD Weakness (Primary Dx); 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); COLLIN (acute kidney injury); Transaminitis; Non-traumatic rhabdomyolysis; Paroxysmal atrial fibrillation (HC); Other problems related to social environment Discharge Disposition: Detention Facility 11/23/2024 Travel 11/20/2024 7:54 PM LEGAL BILLING SPECIALIST - 11/20/2024 11:47 PM LEGAL BILLING SPECIALIST Emergency [facility] [address] [place] [address] Tanvir Rodriguez MD Malignant neoplasm of left [...] on file Legal Sex Female 3:31 PM LEGAL BILLING SPECIALIST Gender Identity Not on file Sexual Orientation Not on file Occupation Industry Job Start Date Job End Date retired Not on file Not on file Not on file Obstetrics History Last Filed Vital Signs Vital Sign Reading Time Taken Comments Blood Pressure 164/79 11/28/2024 11:29 AM LEGAL BILLING SPECIALIST Pulse 73 11/28/2024 11:29 AM LEGAL BILLING SPECIALIST Temperature 37.4 C (99.4 F) 11/28/2024 11:29 AM LEGAL BILLING SPECIALIST Respiratory Rate 16 11/28/2024 11:2 9 AM LEGAL BILLING SPECIALIST Oxygen Saturation 97% 11/28/2024 11: 29 AM LEGAL BILLING SPECIALIST Inhaled Oxygen Concentration - - Weight 120.7 kg (266 lb 3.2 oz) 11/28/2024 7:03 AM LEGAL BILLING SPECIALIST Height 167.6 cm (5' 6) 11/23/2024 2:11 PM LEGAL BILLING SPECIALIST Body Mass Index 42.97 11/23/2024 2:11 PM LEGAL BILLING SPECIALIST Plan of Treatment Health Maintenance Due Date [...] BASIC METABOLIC PANEL Routine 12/11/2024 8:13 AM LEGAL BILLING SPECIALIST Essential (primary) hypertension HEPATIC FUNCTION PANEL Routine 12/04/2024 7:50 AM LEGAL BILLING SPECIALIST Rhabdomyolysis Dehydration BASIC METABOLIC PANEL Routine 12/04/2024 7:50 AM LEGAL BILLING SPECIALIST Rhabdomyolysis Dehydration CK TOTAL Routine 12/04/2024 7:50 AM LEGAL BILLING SPECIALIST Rhabdomyolysis Dehydration COVID-19 MOLECULAR Today 11/28/2024 10 :55 AM LEGAL BILLING SPECIALIST CREATININE Early AM 11/28/2024 5:42 AM LEGAL BILLING SPECIALIST SODIUM Early AM 11/28/2024 5:42 AM LEGAL BILLING SPECIALIST POTASSIUM Early AM 11/28/2024 5:42 AM LEGAL BILLING SPECIALIST MAGNESIUM Early AM 11/28/2024 5:42 AM LEGAL BILLING SPECIALIST PROTIME-INR Early AM 11/28/2024 5:42 AM LEGAL BILLING SPECIALIST CK TOTAL Early AM 11/27/2024 5:47 AM LEGAL BILLING SPECIALIST AST (SGOT) Early AM 11/27/2024 5:47 AM LEGAL BILLING SPECIALIST ALT (SGPT) Early AM 11/27/2024 5:47 AM LEGAL BILLING SPECIALIST CREATININE Early AM 11/27/2024 5:47 AM LEGAL BILLING SPECIALIST SODIUM Early AM 11/27/2024 5:47 AM LEGAL BILLING SPECIALIST POTASSIUM Early AM 11/27/2024 5:47 AM LEGAL BILLING SPECIALIST MAGNESIUM Early AM 11/27/2024 5:47 AM LEGAL BILLING SPECIALIST PROTIME-INR Early AM 11/27/2024 5:47 AM LEGAL BILLING SPECIALIST HEPATIC FUNCTION PANEL Early AM 11/26/2024 6:27 AM LEGAL BILLING SPECIALIST CK TOTAL Early AM 11/26/2024 6:27 AM LEGAL BILLING SPECIALIST CREATININE Early AM 11/26/2024 6:27 AM LEGAL BILLING SPECIALIST SODIUM Early AM 11/26/2024 6:27 AM LEGAL BILLING SPECIALIST POTASSIUM Early AM 11/26/2024 6:27 AM LEGAL BILLING SPECIALIST MAGNESIUM Early AM 11/26/2024 6:27 AM LEGAL BILLING SPECIALIST PROTIME-INR Early AM 11/26/2024 6:27 AM LEGAL BILLING SPECIALIST MAGNESIUM Early AM 11/25/2024 6:48 AM LEGAL BILLING SPECIALIST HEPATIC FUNCTION PANEL Early AM 11/25/2024 6:48 AM LEGAL BILLING SPECIALIST CK TOTAL Early AM 11/25/2024 6:48 AM LEGAL BILLING SPECIALIST CREATININE Early AM 11/25/2024 6:48 AM LEGAL BILLING SPECIALIST POTASSIUM Early AM 11/25/2024 6:48 AM LEGAL BILLING SPECIALIST SODIUM Early AM 11/25/2024 6:48 AM LEGAL BILLING SPECIALIST PROTIME-INR Early AM 11/25/2024 6:48 AM LEGAL BILLING SPECIALIST MAGNESIUM Timed 11/24/2024 10:45 PM LEGAL BILLING SPECIALIST MAGNESIUM Timed 11/24/2024 7:39 AM LEGAL BILLING SPECIALIST PROTIME-INR Early AM 11/24/2024 7:39 AM LEGAL BILLING SPECIALIST PLATELET COUNT Early AM 11/24/2024 7:39 AM LEGAL BILLING SPECIALIST CK TOTAL Early AM 11/24/2024 7:39 AM LEGAL BILLING SPECIALIST HEPATIC FUNCTION PANEL Early AM 11/24/2024 7:39 AM LEGAL BILLING SPECIALIST CREATININE Early AM 11/24/2024 7:39 AM LEGAL BILLING SPECIALIST POTASSIUM Early AM 11/24/2024 7:39 AM LEGAL BILLING SPECIALIST SODIUM Early AM 11/24/2024 7:39 AM LEGAL BILLING SPECIALIST PROTIME-INR STAT 11/23/2024 8:29 PM LEGAL BILLING SPECIALIST URINALYSIS MICROSCOPIC STAT 11/23/2024 7:02 PM LEGAL BILLING SPECIALIST URINE CULTURE STAT 11/23/2024 7:02 PM LEGAL BILLING SPECIALIST UA W/ SEDIMENT EXAM REFLEXED PER CRITERIA STAT 11/23/2024 7:02 PM LEGAL BILLING SPECIALIST US ABDOMEN LIMITED RUQ STAT 11/23/2024 4:14 PM LEGAL BILLING SPECIALIST RED CELL MORPHOLOGY STAT 11/23/2024 2 :55 PM LEGAL BILLING SPECIALIST PLATELET ESTIMATE STAT 11/23/2024 2:5 5 PM LEGAL BILLING SPECIALIST MANUAL DIFFERENTIAL STAT 11/23/2024 2 :55 PM LEGAL BILLING SPECIALIST CBC WITH AUTO DIFFERENTIAL STAT 11/23/2024 2:55 PM LEGAL BILLING SPECIALIST CBC WITH AUTO DIFFERENTIAL STAT 11/23/2024 2:55 PM LEGAL BILLING SPECIALIST CK TOTAL CECI 11/23/2024 2:50 PM LEGAL BILLING SPECIALIST MAGNESIUM STAT 11/23/2024 2:50 PM LEGAL BILLING SPECIALIST LACTATE VENOUS Today 11/23/2024 2:50 PM LEGAL BILLING SPECIALIST LIPASE STAT 11/23/2024 2:50 PM LEGAL BILLING SPECIALIST HEPATIC FUNCTION PANEL STAT 11/23/2024 2:50 PM LEGAL BILLING SPECIALIST BASIC METABOLIC PANEL STAT 11/23/2024 2:50 PM LEGAL BILLING SPECIALIST TROPONIN T (HS) ONE TIME Timed 11/20/2024 10:[address] ABDOMEN PELVIS W STAT 11/20/2024 1 0:19 [address] B[address]ING [address] CHEST PE STUDY STAT 11/20/2024 10: 18 PM LEGAL BILLING SPECIALIST PRO-BNP CECI 11/20/2024 8:29 PM LEGAL BILLING SPECIALIST CBC WITH AUTO DIFFERENTIAL STAT 11/20/2024 8:29 PM LEGAL BILLING SPECIALIST LACTATE VENOUS Today 11/20/2024 8:29 PM LEGAL BILLING SPECIALIST BLOOD GAS,VENOUS STAT 11/20/2024 8:29 PM LEGAL BILLING SPECIALIST TROPONIN T (HS) ACUTE W/2HR REFLEX STAT 11/20/2024 8:29 PM LEGAL BILLING SPECIALIST LIPASE STAT 11/20/2024 8:29 PM LEGAL BILLING SPECIALIST COMP METABOLIC PANEL STAT 11/20/2024 8:29 PM LEGAL BILLING SPECIALIST D-DIMER,QUANTITATIVE STAT 11/20/2024 8:29 PM LEGAL BILLING SPECIALIST PROTIME-INR STAT 11/20/2024 8:29 PM LEGAL BILLING SPECIALIST CBC WITH AUTO DIFFERENTIAL STAT 11/20/2024 8:29 PM LEGAL BILLING SPECIALIST EKG 12 LEAD STAT 11/20/2024 8:13 PM LEGAL BILLING SPECIALIST COVID-19 MOLECULAR Today 11/20/2024 8: 02 PM LEGAL BILLING SPECIALIST INFLUENZA A/B PCR STAT 11/20/2024 8:0 2 PM LEGAL BILLING SPECIALIST from Last 3 Months Results * (ABNORMAL) BASIC METABOLIC PANEL (12/11/2024 8:13 AM LEGAL BILLING SPECIALIST) Only the most recent of3 resultswithin the time period is included. SODIUM 145 136 - 145 mmol/L 12/11/2024 9:36 AM [facility] POTASSIUM 4.2 3.5 - 5.1 mmol/L 12/11/2024 9:36 AM [facility] CHLORIDE 105 98 - 107 mmol/L 12/11/2024 9:36 AM [facility] CO2,TOTAL 30(H) 22 - 29 mmol/L 12/11/2024 9:36 AM [facility] ANION GAP 10 5 - 18 12/11/2024 9:36 AM [facility] GLUCOSE 86 70 - 99 mg/dL 12/11/2024 9:36 AM [facility] CALCIUM 9.1 8.8 - 10.4 mg/dL 12/11/2024 9:36 AM [facility] Comment: Reference ranges for this test were updated on 09/04/2024 to reflect our healthy population more accurately. Reference range changes are not retroactively applied to results, but previous results using the same methodology can be interpreted in the context of the new reference range. BUN 20 8 - 23 mg/dL 12/11/2024 9:36 AM [facility] CREATININE 1.18(H) 0.50 - 0.90 mg/dL 12/11/2024 9:36 AM [facility] BUN/CREAT RATIO 17 10 - 20 9:36 AM [facility] eGFR 45(L) >90 mL/min/1. 73m2 12/11/2024 9:36 AM [facility] Comment:As of 2022, eG FR is calculated by the CKD-EPI creatinine equation without race adjustment. eGFR can be influenced by muscle mass, exercise, and diet. The reported eGFR is an estimation only and is only applicable if the renal function is stable. Blood BLOOD SPECIMEN / Unknown Venipuncture / Unknown 12/11/2024 8:13 AM LEGAL BILLING SPECIALIST 12/11/2024 9:09 AM LEGAL BILLING SPECIALIST us Ermelinda Vicente NP CHEMISTRY Final Resul t Performing Organization Address City/[facility] Co de Phone Number [facility] [address] [place] [address] * CK TOTAL (12/04/2024 7:50 AM LEGAL BILLING SPECIALIST) Only the most recent of6 resultswithin the time period is included. Pathologist [facility] CK,TOTAL 38 26 - 192 IU/L 12/04/2024 9:44 AM [facility] Blood BLOOD SPECIMEN / Unknown Venipuncture / Unknown 12/04/2024 7:50 AM LEGAL BILLING SPECIALIST 12/04/2024 9:15 AM LEGAL BILLING SPECIALIST us Johnathan Lopez MD CHEMISTRY Final Result Performing Organization Address [facility] Co de Phone Number [facility] [address] [place] [address] * (ABNORMAL) HEPATIC FUNCTION PANEL (12/04/2024 7:50 AM LEGAL BILLING SPECIALIST) Only the most recent of5 resultswithin the time period is included. ALBUMIN 3.6(L) 4.0 - 4.9 g/dL 12/04/2024 9:44 AM [facility] PROTEIN,TOTAL 6.4 6.0 - 8.0 g/dL 12/04/2024 9:44 AM [facility] BILIRUBIN,TOTAL 0.6 0.0 - 1.2 mg/dL 12/04/2024 9:44 AM [facility] BILIRUBIN,DIRECT 0.3(H) 0.0 - 0.2 mg/dL 12/04/2024 9:44 AM [facility] BILIRUBIN,INDIRE CT 0.3 0.2 - 0.8 mg/dL 12/04/2024 9:44 AM [facility] ALK PHOSPHATASE 118(H) 35 - 104 IU/L 12/04/2024 9:44 AM [facility] ALT (SGPT) 46(H) 10 - 35 IU/L 12/04/2024 9:44 AM [facility] AST (SGOT) 34 10 - 35 IU/L 12/04/2024 9:44 AM [facility] Blood BLOOD SPECIMEN / Unknown Venipuncture / Unknown 12/04/2024 7:50 AM LEGAL BILLING SPECIALIST 12/04/2024 9:15 AM LEGAL BILLING SPECIALIST us Johnathan Lopez MD CHEMISTRY Final Result Performing Organization Address [facility] Co de Phone Number [facility] [address] [place] [address] * COVID-19 MOLECULAR (11/28/2024 10:55 AM LEGAL BILLING SPECIALIST) Only the most recent of2 resultswithin the time period is included. COVID 19 [place] MOLECULAR Not detected Not detected 11/28/2024 12:20 PM [facility] TESTING LABORATORY [facility] 11/28/2024 12:20 PM [facility] Comment:Specimen submitted t o [facility] for testing. Other SPECIMEN FROM NASOPHARYNGEAL STRUCTURE / Unknown Non-Blood / Unknown 11/28/2024 10:55 AM LEGAL BILLING SPECIALIST 11/28/2024 12:20 PM LEGAL BILLING SPECIALIST us Alexis Leach NP MICROBIOLOGY Fin al Result Performing Organization Address [facility]/ZIP Co de Phone Number [facility] [address] [place] [address] * SODIUM (11/28/2024 5:42 AM LEGAL BILLING SPECIALIST) Only the most recent of5 resultswithin the time period is included. SODIUM 144 136 - 145 mmol/L 11/28/2024 6:46 AM LEGAL BILLING SPECIALIST [facility] Blood BLOOD SPECIMEN / Unknown Venipuncture / Unknown 11/28/2024 5:42 AM LEGAL BILLING SPECIALIST 11/28/2024 6:25 AM LEGAL BILLING SPECIALIST Alexis Leach NP CHEMISTRY Fin al Result Performing Organization Address City/[facility]/ZIP Co de Phone Number [facility] [address] [place] [address] * POTASSIUM (11/28/2024 5:42 AM LEGAL BILLING SPECIALIST) Only the most recent of5 resultswithin the time period is included. POTASSIUM 4.8 3.5 - 5.1 mmol/L 11/28/2024 6:46 AM [facility] Blood BLOOD SPECIMEN / Unknown Venipuncture / Unknown 11/28/2024 5:42 AM LEGAL BILLING SPECIALIST 11/28/2024 6:25 AM LEGAL BILLING SPECIALIST us Michelle Simms MD CHEMISTRY Fin al Result Performing Organization Address [facility] Co de Phone Number [facility] [address] [place] [address] * (ABNORMAL) CREATININE (11/28/2024 5:42 AM LEGAL BILLING SPECIALIST) Only the most recent of5 resultswithin the time period is included. eGFR 59(L) >90 mL/min/1.7 3m2 11/28/2024 6:46 AM [facility] Comment:As of 2022, eG FR is calculated by the CKD-EPI creatinine equation without race adjustment. eGFR can be influenced by muscle mass, exercise, and diet. The reported eGFR is an estimation only and is only applicable if the renal function is stable. CREATININE 0.95(H) 0.50 - 0.90 mg/dL 11/28/2024 6:46 AM [facility] Blood BLOOD SPECIMEN / Unknown Venipuncture / Unknown 11/28/2024 5:42 AM LEGAL BILLING SPECIALIST 11/28/2024 6:25 AM LEGAL BILLING SPECIALIST Alexis Leach NP CHEMISTRY Fin al Result Performing Organization Address [facility] de Phone Number [facility] [address] [place] [address] * (ABNORMAL) PROTIME-INR (11/28/2024 5:42 AM LEGAL BILLING SPECIALIST) Only the most recent of7 resultswithin the time period is included. INR 3.0(H) <1.3 11/28/2024 6:33 AM LEGAL BILLING SPECIALIST [facility] PROTIME 34.4(H) 10.6 - 12.4 sec 11/28/2024 6:33 AM [facility] Blood BLOOD SPECIMEN / Unknown Venipuncture / Unknown 11/28/2024 5:42 AM LEGAL BILLING SPECIALIST 11/28/2024 6:24 AM LEGAL BILLING SPECIALIST Narrative [facility] - 11/28/2024 6:33 AM LEGAL BILLING SPECIALIST Therapeutic Range 2.0-3.0 for most anticoagulated patients [...] HEMATOLOGY Fin al Result Performing Organization Address [facility] de Phone Number [facility] [address] [place] [address] * MAGNESIUM (11/28/2024 5:42 AM LEGAL BILLING SPECIALIST) Only the most recent of7 resultswithin the time period is included. MAGNESIUM 2.3 1.6 - 2.4 mg/dL 11/28/2024 6:46 AM LEGAL BILLING SPECIALIST [facility] Blood BLOOD SPECIMEN / Unknown Venipuncture / Unknown 11/28/2024 5:42 AM LEGAL BILLING SPECIALIST 11/28/2024 6:25 AM LEGAL BILLING SPECIALIST us Michelle Simms MD CHEMISTRY Fin al Result Performing Organization Address [facility] Co de Phone Number [facility] [address] [place] [address] * (ABNORMAL) ALT (SGPT) (11/27/2024 5:47 AM LEGAL BILLING SPECIALIST) ALT (SGPT) 123(H) 10 - 35 IU/L 11/27/2024 7:11 AM LEGAL BILLING SPECIALIST [facility] Blood BLOOD SPECIMEN / Unknown Venipuncture / Unknown 11/27/2024 5:47 AM LEGAL BILLING SPECIALIST 11/27/2024 6:51 AM LEGAL BILLING SPECIALIST us Alexis Leach NP CHEMISTRY Fin al Result Performing Organization Address [facility] de Phone Number [facility] [address] [place] [address] * (ABNORMAL) AST (SGOT) (11/27/2024 5:47 AM LEGAL BILLING SPECIALIST) AST (SGOT) 179(H) 10 - 35 IU/L 11/27/2024 7:11 AM LEGAL BILLING SPECIALIST [facility] Blood BLOOD SPECIMEN / Unknown Venipuncture / Unknown 11/27/2024 5:47 AM LEGAL BILLING SPECIALIST 11/27/2024 6:51 AM LEGAL BILLING SPECIALIST us Alexis Leach NP CHEMISTRY Fin al Result Performing Organization Address [facility] de Phone Number [facility] [address] [place] [address] * PLATELET COUNT (11/24/2024 7:39 AM LEGAL BILLING SPECIALIST) PLATELET COUNT 154 140 - 440 thou/cu mm 11/24/2024 8:16 AM LEGAL BILLING SPECIALIST [facility] MPV 11.0 6.5 - 11.0 fL 11/24/2024 8:16 AM LEGAL BILLING SPECIALIST [facility] Blood BLOOD SPECIMEN / Unknown Venipuncture / Unknown 11/24/2024 7:39 AM LEGAL BILLING SPECIALIST 11/24/2024 8:08 AM LEGAL BILLING SPECIALIST Alexis Leach BUTADIENE CONVERTER UTILITY OPERATOR HEMATOLOGY Fin al Result Performing Organization Address [facility] de Phone Number [facility] [address] [place] [address] * (ABNORMAL) URINALYSIS MICROSCOPIC (11/23/2024 7:02 PM LEGAL BILLING SPECIALIST) RBC 0-2 0-2, None Seen /HPF 11/23/2024 7:36 PM LEGAL BILLING SPECIALIST [facility] WBC 11-25(A) 0-2, 3-5, None Seen /HPF 11/23/2024 7:36 PM LEGAL BILLING SPECIALIST [facility] BACTERIA Many(A) None Seen, Rare, Few Bacteria/ HPF 11/23/2024 7:36 PM LEGAL BILLING SPECIALIST [facility] EPITHELIAL CELLS Few None Seen, Few Epi/HPF 11/23/2024 7:36 PM LEGAL BILLING SPECIALIST [facility] CALCIUM OXALATE CRYSTALS Present(A) (none) 11/23/2024 7:36 PM LEGAL BILLING SPECIALIST [facility] Urine URINE SPECIMEN / Unknown Non-Blood / Unknown 11/23/2024 7:02 PM LEGAL BILLING SPECIALIST 11/23/2024 7:07 PM LEGAL BILLING SPECIALIST us Yi Galeas PA URINE Final Resul t Performing Organization Address City/[facility]/ZIP Co de Phone Number [facility] [address] [place] [address] * URINE CULTURE (11/23/2024 7:02 PM LEGAL BILLING SPECIALIST) CULTURE 10-50,000 CFU/mL of multiple organisms, probable contaminants 11/24/2024 1:36 PM LEGAL BILLING SPECIALIST [facility] Urine URINE SPECIMEN / Unknown Non-Blood / Unknown 11/23/2024 7:02 PM LEGAL BILLING SPECIALIST 11/23/2024 7:04 PM LEGAL BILLING SPECIALIST us Alexis Leach NP MICROBIOLOGY Fin al Result [facility] [address] [place] [address], [place] * (ABNORMAL) UA W/ SEDIMENT EXAM REFLEXED PER CRITERIA (11/23/2024 7:02 PM LEGAL BILLING SPECIALIST) COLOR Yellow Yellow Color 11/23/2024 7:36 PM [facility] CLARITY Clear Clear Clarity 11/23/2024 7:36 PM [facility] SPECIFIC GRAVITY,URINE 1.010 1.010, 1.015, 1.020, 1.025 11/23/2024 7:36 PM [facility] PH,URINE 5.5 6.0, 7.0, 8.0, 5.5, 6.5, 7.5, 8.5 11/23/2024 7:36 PM [facility] UROBILINOGEN, QUALITATIVE Normal Normal EU/dl 11/23/2024 7:36 PM [facility] PROTEIN, URINE Negative Negative mg/dL 11/23/2024 7:36 PM [facility] GLUCOSE, URINE Negative Negative mg/dL 11/23/2024 7:36 PM [facility] KETONES,URINE Negative Negative mg/dL 11/23/2024 7:36 PM [facility] BILIRUBIN,URI NE Negative Negative 11/23/2024 7:36 PM [facility] OCCULT BLOOD,URINE Negative Negative 11/23/2024 7:36 PM [facility] NITRITE Negative Negative 11/23/2024 7:36 PM [facility] LEUKOCYTE ESTERASE Small(A) Negative 11/23/2024 7:36 PM [facility] Urine URINE SPECIMEN / Unknown Non-Blood / Unknown 11/23/2024 7:02 PM LEGAL BILLING SPECIALIST 11/23/2024 7:07 PM LEGAL BILLING SPECIALIST us Yi Galeas PA URINE Final Resul t [facility] [address] [place] [address] * US ABDOMEN LIMITED RUQ (11/23/2024 4:14 PM LEGAL BILLING SPECIALIST) Anatomical Region Laterality Modality Abdomen, LIVER Ultrasound 11/23/2024 4:42 PM LEGAL BILLING SPECIALIST Impressions 11/23/2024 4:42 PM LEGAL BILLING SPECIALIST Unremarkable right upper quadrant ultrasound. Dictated by Dangelo Gregorio MD @ 11/23/2024 4:42:17 PM (Electronically Signed) Narrative 11/23/2024 4:42 PM LEGAL BILLING SPECIALIST For Patients: As a result of the [...] CBC WITH AUTO DIFFERENTIAL (11/23/2024 2:55 PM LEGAL BILLING SPECIALIST) Only the most recent of2 resultswithin the time period is included. WHITE BLOOD COUNT 9.0 4.5 - 11.0 thou/cu mm 11/23/2024 3:28 PM [facility] RED BLOOD COUNT 4.16 4.00 - 5.20 mil/cu mm 11/23/2024 3:28 PM [facility] HEMOGLOBIN 12.9 12.0 - 16.0 g/dL 11/23/2024 3:28 PM [facility] HEMATOCRIT 38.3 33.0 - 51.0 % 11/23/2024 3:28 PM [facility] MCV 92 80 - 100 fL 11/23/2024 3:28 PM [facility] MCH 31.0 26.0 - 34.0 pg 11/23/2024 3:28 PM [facility] MCHC 33.7 32.0 - 36.0 g/dL 11/23/2024 3:28 PM [facility] RDW 15.7(H) 11.5 - 15.5 % 11/23/2024 3:28 PM [facility] PLATELET COUNT 151 140 - 440 thou/cu mm 11/23/2024 3:28 PM [facility] MPV 10.7 6.5 - 11.0 fL 11/23/2024 3:28 PM [facility] Blood BLOOD SPECIMEN / Unknown Capillary / Unknown 11/23/2024 2:55 PM LEGAL BILLING SPECIALIST 11/23/2024 2:58 PM LEGAL BILLING SPECIALIST us Yi LUBIN HEMATOLOGY Final Resul t Performing Organization Address The [facility] Co de Phone Number [facility] [address] [place] [address] * (ABNORMAL) RED CELL MORPHOLOGY (11/23/2024 2:55 PM LEGAL BILLING SPECIALIST) Pathologist [facility] POLYCHROMASIA Slight 11/23/2024 3:28 PM LEGAL BILLING SPECIALIST [facility] RBC COMMENT Present(A) RBC morphology appears normal, RBC morphology within normal limits for newborns. 11/23/2024 3:28 PM LEGAL BILLING SPECIALIST [facility] LARGE PLATELETS Present 3:28 PM LEGAL BILLING SPECIALIST [facility] Blood BLOOD SPECIMEN / Unknown Capillary / Unknown 11/23/2024 2:55 PM LEGAL BILLING SPECIALIST 11/23/2024 2:58 PM LEGAL BILLING SPECIALIST us Yi LUBIN HEMATOLOGY Final Resul t Performing Organization Address [facility] Co de Phone Number [facility] [address] [place] [address] * PLATELET ESTIMATE (11/23/2024 2:55 PM LEGAL BILLING SPECIALIST) [facility] PLATELET ESTIMATE Adequate Adequate, No estimate 11/23/2024 3:28 PM LEGAL BILLING SPECIALIST [facility] Blood BLOOD SPECIMEN / Unknown Capillary / Unknown 11/23/2024 2:55 PM LEGAL BILLING SPECIALIST 11/23/2024 2:58 PM LEGAL BILLING SPECIALIST us Yi LUBIN HEMATOLOGY Final Resul t Performing Organization Address [facility]/ZIP Co de Phone Number [facility] [address] [place] [address] * (ABNORMAL) MANUAL DIFFERENTIAL (11/23/2024 2:55 PM LEGAL BILLING SPECIALIST) [facility] % NEUTROPHILS 61.0 % 11/23/2024 3:28 PM [facility] % LYMPHOCYTES 33.0 % 11/23/2024 3:28 PM [facility] % MONOCYTES 4.0 % 11/23/2024 3:28 PM [facility] % EOSINOPHILS 2.0 % 11/23/2024 3:28 PM [facility] % BASOPHILS 0.0 % 11/23/2024 3:28 PM [facility] NEUTROPHILS ABSOLUTE 5.5 1.7 - 7.0 thou/cu mm 11/23/2024 3:28 PM [facility] LYMPHOCYTES ABSOLUTE 3.0(H) 0.9 - 2.9 thou/cu mm 11/23/2024 3:28 PM [facility] MONOCYTES ABSOLUTE 0.4 <0.9 thou/cu mm 11/23/2024 3:28 PM [facility] EOSINOPHILS ABSOLUTE 0.2 <0.5 thou/cu mm 11/23/2024 3:28 PM [facility] BASOPHILS ABSOLUTE 0.0 <0.3 thou/cu mm 11/23/2024 3:28 PM [facility] Blood BLOOD SPECIMEN / Unknown Capillary / Unknown 11/23/2024 2:55 PM LEGAL BILLING SPECIALIST 11/23/2024 2:58 PM LEGAL BILLING SPECIALIST us Yi LUBIN HEMATOLOGY Final Resul t [facility] [address] [place], [place] [id number] * LACTATE VENOUS (11/23/2024 2:50 PM LEGAL BILLING SPECIALIST) Only the most recent of2 resultswithin the time period is included. LACTATE,VENOUS 1.7 0.5 - 2.0 mmol/L 11/23/2024 3:14 PM LEGAL BILLING SPECIALIST [facility] Blood BLOOD SPECIMEN / Unknown Butterfly / Unknown 11/23/2024 2:50 PM LEGAL BILLING SPECIALIST 11/23/2024 2:53 PM LEGAL BILLING SPECIALIST us Yi LUBIN CHEMISTRY Final Resul t Performing Organization Address City/[facility]/ZIP Co de Phone Number [facility] [address] [place], [place] [id number] * LIPASE (11/23/2024 2:50 PM LEGAL BILLING SPECIALIST) Only the most recent of2 resultswithin the time period is included. LIPASE 43.0 13.0 - 60.0 IU/L 11/23/2024 3:14 PM LEGAL BILLING SPECIALIST [facility] Blood BLOOD SPECIMEN / Unknown Butterfly / Unknown 11/23/2024 2:50 PM LEGAL BILLING SPECIALIST 11/23/2024 2:53 PM LEGAL BILLING SPECIALIST us Yi LUBIN CHEMISTRY Final Resul t Performing Organization Address City/[facility]/ZIP Co de Phone Number [facility] [address] [place] [address] * (ABNORMAL) TROPONIN T (HS) ONE TIME (11/20/2024 10:33 PM LEGAL BILLING SPECIALIST) Pathologist [facility] TROPONIN T HS 25(H) 6-10 ng/L ng/L 11/20/2024 11:00 PM LEGAL BILLING SPECIALIST [facility] Blood BLOOD SPECIMEN / Unknown Butterfly / Unknown 11/20/2024 10:33 PM LEGAL BILLING SPECIALIST 11/20/2024 10:36 PM LEGAL BILLING SPECIALIST us Tanvir Rodriguez MD CHEMISTRY Final Res ult Performing Organization Address [facility]/ZIP Co de Phone Number [facility] [address] [place] [address] * CT ABDOMEN PELVIS W (11/20/2024 10:19 PM LEGAL BILLING SPECIALIST) Anatomical Region Laterality Modality Abdomen, Pelvis, AORTA, LIVER, SPLEEN Computed Tomography 11/20/2024 10:2 8 PM LEGAL BILLING SPECIALIST Impressions 11/20/2024 10:28 PM LEGAL BILLING SPECIALIST No acute intra-abdominal/pelvic abnormality. Severe colonic diverticulosis [...] PM (Electronically Signed) Narrative 11/20/2024 10:28 PM LEGAL BILLING SPECIALIST For Patients: As a result of the [...] CT CHEST PE STUDY (11/20/2024 10:18 PM LEGAL BILLING SPECIALIST) Anatomical Region Laterality Modality CHEST, THORAX, HEART Computed To mography 11/20/2024 10:4 0 PM LEGAL BILLING SPECIALIST Narrative 11/20/2024 10:40 PM LEGAL BILLING SPECIALIST For Patients: As a result of the [...] (HS) ACUTE W/2HR REFLEX (11/20/2024 8:29 PM LEGAL BILLING SPECIALIST) TROPONIN T HS 28(H) 6-10 ng/L ng/L 11/20/2024 9:00 PM [facility] Blood BLOOD SPECIMEN / Unknown Butterfly / Unknown 11/20/2024 8:29 PM LEGAL BILLING SPECIALIST 11/20/2024 8:32 PM LEGAL BILLING SPECIALIST [facility] - 11/20/2024 9:00 PM LEGAL BILLING SPECIALIST hs-cTnT (Elecsys Troponin T Gen 5) concentration [...] CHEMISTRY Final Res ult Performing Organization Address [facility] Co de Phone Number [facility] [address] [place] [address] * (ABNORMAL) BLOOD GAS,VENOUS (11/20/2024 8:29 PM LEGAL BILLING SPECIALIST) PH, VENOUS 7.43 7.32 - 7.43 11/20/2024 8:47 PM [facility] PCO2, VENOUS 46 41 - 51 mmHg 11/20/2024 8:47 PM [facility] PO2, VENOUS 38 35 - 40 mmHg 11/20/2024 8:47 PM [facility] HCO3,VENOUS 31(H) 22 - 29 mmol/L 11/20/2024 8:47 PM [facility] BASE EXCESS, VENOUS, POCT 5.3(H) -2.0 - 3.0 11/20/2024 8:47 PM [facility] O2 SATURATION, VENOUS 65(L) 70 - 75 % 11/20/2024 8:47 PM [facility] Blood BLOOD SPECIMEN / Unknown Butterfly / Unknown 11/20/2024 8:29 PM LEGAL BILLING SPECIALIST 11/20/2024 8:32 PM LEGAL BILLING SPECIALIST us Tanvir Rodriguez MD CHEMISTRY Final Res ult Performing Organization Address [facility]/ZIP Co de Phone Number [facility] [address] [place] [address] * (ABNORMAL) D-Dimer, Quantitative (11/20/2024 8:29 PM LEGAL BILLING SPECIALIST) D-DIMER,QUANTI TATIVE 1.22 See comment FEU mcg/mL 11/20/2024 8:49 PM LEGAL BILLING SPECIALIST [facility] D-DIMER INTERP Abnormal( A) 11/20/2024 8:49 PM [facility] Blood BLOOD SPECIMEN / Unknown Butterfly / Unknown 11/20/2024 8:29 PM LEGAL BILLING SPECIALIST 11/20/2024 8:32 PM LEGAL BILLING SPECIALIST [facility] - 11/20/2024 8:49 PM LEGAL BILLING SPECIALIST The cut off value for exclusion of Deep Vein Thrombosis and / or Pulmonary Embolism is 0.50 FEU mcg/mL For patients greater than 50 years of age the upper limit is age dependent and was calculated with the formula: (PATIENT AGE x 0.01) FEU mcg/mL = Upper limit of normal range us Tanvir Rodriguez MD HEMATOLOGY Final Res ult [facility] [address] [place] [id number] * (ABNORMAL) PRO-BNP (11/20/2024 8:29 PM LEGAL BILLING SPECIALIST) [facility] PRO-BNP 4,829(H) <450 pg/mL 11/20/2024 10:05 PM [facility] Blood BLOOD SPECIMEN / Unknown Butterfly / Unknown 11/20/2024 8:29 PM LEGAL BILLING SPECIALIST 11/20/2024 8:32 PM LEGAL BILLING SPECIALIST [facility] - 11/20/2024 10:05 PM LEGAL BILLING SPECIALIST The following cut-points have been suggested for [...] Rodriguez MD SEND OUTS Final Res ult [facility] [address] [facility] [place] [address] * (ABNORMAL) Comp Metabolic Panel (11/20/2024 8:29 PM [facility]) SODIUM 144 136 - 145 mmol/L 11/20/2024 9:00 PM [facility] POTASSIUM 4.0 3.5 - 5.1 mmol/L 11/20/2024 9:00 PM [facility] CHLORIDE 104 98 - 107 mmol/L 11/20/2024 9:00 PM [facility] CO2,TOTAL 26 22 - 29 mmol/L 11/20/2024 9:00 PM [facility] ANION GAP 14 5 - 18 11/20/2024 9:00 PM [facility] GLUCOSE 127(H) 70 - 99 mg/dL 11/20/2024 9:00 PM [facility] CALCIUM 9.1 8.8 - 10.4 mg/dL 11/20/2024 9:00 PM [facility] Comment: Reference ranges for this test were updated on 09/04/2024 to reflect our healthy population more accurately. Reference range changes are not retroactively applied to results, but previous results using the same methodology can be interpreted in the context of the new reference range. BUN 24(H) 8 - 23 mg/dL 11/20/2024 9:00 PM [facility] CREATININE 1.20(H) 0.50 - 0.90 mg/dL 11/20/2024 9:00 PM [facility] BUN/CREAT RATIO 20 10 - 20 9:00 PM [facility] eGFR 44(L) >90 mL/min/1. 73m2 11/20/2024 9:00 PM [facility] Comment:As of 2022, eG FR is calculated by the CKD-EPI creatinine equation without race adjustment. eGFR can be influenced by muscle mass, exercise, and diet. The reported eGFR is an estimation only and is only applicable if the renal function is stable. ALBUMIN 3.8(L) 4.0 - 4.9 g/dL 11/20/2024 9:00 PM [facility] PROTEIN,TOTAL 6.5 6.0 - 8.0 g/dL 11/20/2024 9:00 PM [facility] BILIRUBIN,TOTAL 1.2 0.0 - 1.2 mg/dL 11/20/2024 9:00 PM [facility] ALK PHOSPHATASE 106(H) 35 - 104 IU/L 11/20/2024 9:00 PM [facility] ALT (SGPT) 20 10 - 35 IU/L 11/20/2024 9:00 PM [facility] AST (SGOT) 30 10 - 35 IU/L 11/20/2024 9:00 PM [facility] Blood BLOOD SPECIMEN / Unknown Butterfly / Unknown 11/20/2024 8:29 PM LEGAL BILLING SPECIALIST 11/20/2024 8:32 PM LEGAL BILLING SPECIALIST us Tanvir Rodriguez MD CHEMISTRY Final Res ult Performing Organization Address City/[facility] Co de Phone Number [facility] [address] [place] [address] * EKG 12 LEAD (11/20/2024 8:13 PM LEGAL BILLING SPECIALIST) Interpretation Ventricula r-paced rhythm Abnormal ECG BEYOND NOW Ventricular Rate 64 BPM BEYOND NOW Atrial Rate 58 BPM BEYOND NOW P-R Interval ms BEYOND NOW QRS Duration 172 ms BEYOND NOW QT 460 ms BEYOND NOW QTc 474 ms BEYOND NOW P [place] degrees BEYOND NOW R [place] -89 degrees BEYOND NOW T [place] 60 degrees BEYOND NOW 11/20/2024 8:13 PM LEGAL BILLING SPECIALIST 11/20/2024 10:11 PM LEGAL BILLING SPECIALIST us Tanvir Rodriguez MD EKG ORD Final Res ult Performing Organization Address [facility] Co de Phone Number BEYOND NOW [place], [place] * INFLUENZA A/B PCR (11/20/2024 8:02 PM LEGAL BILLING SPECIALIST) INFLUENZA A PCR NOT Detected 11/20/2024 8:58 PM LEGAL BILLING SPECIALIST [facility] INFLUENZA B PCR NOT Detected 11/20/2024 8:58 PM LEGAL BILLING SPECIALIST [facility] Other SPECIMEN FROM NASOPHARYNGEAL STRUCTURE / Unknown Non-Blood / Unknown 11/20/2024 8:02 PM LEGAL BILLING SPECIALIST 11/20/2024 8:16 PM LEGAL BILLING SPECIALIST us Montserrat LUBIN MICROBIOLOGY Final R esult [facility] [address] [place] [address] from Last 3 Months Insurance MEDICARE PART B HB ONLY [place] HB ONLY MEDICARE PART A HB ONLY [place] PB ONLY [place] HB ONLY [place] MEDICARE PPS Advance Directives Documents on File Type Date Recorded Patient Major Assembler Expl anation Healthcare Directive 09/09/2017 12:00 AM [...] Code Status Discussion: Reviewed Preferences Care Teams Machine Attendant Relationship Specialty Start Date End Date Juan Landry PA [address] [place] [phone] PCP - General Physician Learning Support Specialist 06/20/23
== END 2025-01-27 20:26 | disposition home or self-care (01) ==
LOC: ED 20:05
PROVIDERS: Emergency Provider Family Medicine; PCP Family Medicine
DX: S00.83XA Contusion of other part of head, initial encounter (principal); W19.XXXA Unspecified fall, initial encounter; Z79.01 Long term (current) use of anticoagulants
CPT/HCPCS: 36415; 70450; 80048; 85025; 85610; 99284

== ENCOUNTER 2025-04-27 15:29 | Outpatient (REF) | payer MEDICARE, BC, SELFPAY ==
--- OUTSIDE RECORDS SUMMARY | 2025-04-27 15:36 | XMS_ITS | Clinical Summary ---
Author Organization [employer] [facility] Address [address] [place] [id number] Care Team Providers Care Shoe Trimmer Name Role Phone Juan Landry Primary Care Provider [phone] Allergies Active Allergy Reactions Criticality Noted Date [...] Take 100 mg by mouth once daily. 12/28/19 22 Active NebulizerIndicatio ns:COPD exacerbation (HC) Nebulizer, disposable neb kit x 4, reuseable neb kit x 1, mask x 1, filters x 1. Frequency of use: daily; Length of need: 99 months 1 Each 04/27/20 22 Active albuterol (PROVENTIL) 0.083 % neb solutionIndication s:Cough Inhale 3 mL (2.5 mg) via a nebulizer every 2 hours if needed for Shortness Of Breath or Wheezing 1st choice. 180 mL 05/05/2022 9:31 AM CDT 05/05/20 22 Active rx ondansetron (ZOFRAN ODT) 4 mg orally disintegrating tablet (ED DC MED)Indications:Na usea and vomiting, unspecified vomiting type Place 1 Tablet (4 mg) on the tongue every 8 hours if needed (nausea and vomiting). 4 Tablet 11/20/19 Active acetaminophen (TYLENOL EXTRA STRGTH) 500 mg tablet Take 1,000 mg by mouth at bedtime. 05/15/20 Active calcium carbonate-vitamin D3, 600 mg-400 unit, 600 mg-10 mcg (400 unit) tablet Take 1 Tablet by mouth once daily. 05/15/20 Active carvediloL (COREG) 12.5 mg tablet Take 12.5 mg by mouth two times daily with meals. 04/19/20 Active diclofenac topical (VOLTAREN) 1 % gel Apply 2 g topically to affected area(s) 4 times daily if needed. Apply 2 g topically 4 (four) times a day. Apply to back pain. 03/13/20 Active Trelegy Ellipta 200-62.5-25 mcg inhaler Inhale 1 Puff by mouth once daily. Active loperamide (IMODIUM) 2 mg capsule Take 2 mg by mouth 4 times daily if needed. 11/22/19 Active nitroglycerin (NITROSTAT) 0.[address] 0.4 mg under the tongue every 5 minutes if needed. 04/11/20 Active torsemide 40 mg tab Take 40 mg by mouth two times daily. 10/04/20 Active albuterol HFA (PRO-AIR; VENTOLIN; PROVENTIL) 90 mcg/actuation inhaler Inhale 2 Puffs by mouth every 4 hours if needed. 05/15/20 Active potassium chloride (K-TAB) 20 mEq extended-release tablet Take 20 mEq by mouth two times daily with meals. Active warfarin (COUMADIN) 2.5 mg tabletIndications: Paroxysmal atrial fibrillation (HC) Take 1.25 mg on Tuesday and Tuesday, and 2.5 mg ROW. INR goal 2-3. 11/28/19 25 Active enalapril (VASOTEC) 20 mg tablet Take 20 mg by mouth two times daily. 04/11/20 24 025 Active Problems Problem Noted Date Diagnosed Date COLLIN (acute kidney injury) 11/23/2024 Rhabdomyolysis 11/23/2024 Transaminitis 11/23/2024 History of left breast cancer 11/23/2024 Acute cystitis without hematuria 11/23/2024 Elevated troponin 05/03/2022 Leukocytosis 05/03/2022 Hypokalemia 04/27/2022 H/O mechanical aortic valve replacement 04/25/20 22 Current use of penitentiary anticoagulation 022 Chronic heart failure 04/25/2022 Viral [...] 04/28/2017 04/29/2017 Impaired renal function 04/02 Acute AR 04/29/2017 Overview (04/26/2017): 20 yrs ago- stent placement HTN (hypertension) 7 Family History Medical History Relation Name Comments [...] on file Legal Sex Female 3:31 PM DATA ENTRY MANAGER Gender Identity Not on file Sexual Orientation Not on file Occupation Industry Job Start Date Job End Date retired Not on file Not on file Not on file Obstetrics History Last Filed Vital Signs Vital Sign Reading Time Taken Comments Blood Pressure 164/79 11/28/2024 11:29 AM DATA ENTRY MANAGER Pulse 73 11/28/2024 11:29 AM DATA ENTRY MANAGER Temperature 37.4 C (99.4 F) 11/28/2024 11:29 AM DATA ENTRY MANAGER Respiratory Rate 16 11/28/2024 11:2 9 AM DATA ENTRY MANAGER Oxygen Saturation 97% 11/28/2024 11: 29 AM DATA ENTRY MANAGER Inhaled Oxygen Concentration - - Weight 120.7 kg (266 lb 3.2 oz) 11/28/2024 7:03 AM DATA ENTRY MANAGER Height 167.6 cm (5' 6) 11/23/2024 2:11 PM DATA ENTRY MANAGER Body Mass Index 42.97 11/23/2024 2:11 PM DATA ENTRY MANAGER Plan of Treatment Health Maintenance Due Date [...] same day) for age 18+ 04/26/2018 04/26/2017 COVID-19 vaccine series ( season) 2025 03/13/2025, 09/05/2024, 12/29/2023, Additional history exists Influenza Vaccine (Season Ended) 2025 Hepatitis B series for 19+ Aged Out N o longer eligible based on patient's age to complete this topic Insurance MEDICARE PART B HB ONLY [place] BLUE HB ONLY MEDICARE PART A HB ONLY [place] BLUE MR PB ONLY [place] BLUE HB ONLY MEDICARE PPS Advance Directives Documents on File Type Date Recorded Patient Ur Coordinator Expl anation Healthcare Directive 09/09/2017 12:00 AM [...] Code Status Discussion: Reviewed Preferences Care Teams Shoe Trimmer Relationship Specialty Start Date End Date Juan Landry PA [address] [place] [phone] PCP - General Physician Lace Inspector 06/20/23
[2025-04-27 15:45] LABS: Appearance Urine Cloudy (Clear); Bilirubin Urine Negative (Negative); Blood Urine 1+ (Negative); Color Urine Yellow (Yellow); Glucose Urine Negative (Negative); Ketones Urine Negative (Negative); Leukocyte Esterase Urine 2+ (Negative); Nitrite Urine Negative (Negative); Protein Urine Negative (Negative); Specific Gravity Urine 1.015 (1.000-1.030); Urobilinogen Urine 0.2 (0.2-1.0)
[2025-04-27 15:55] LABS: RBC Urine 0-2 (0-2)
[2025-04-27 15:56] LABS: Squamous Epithelial Cell Urine Few (None-Few)
== END 2025-04-27 15:30 | disposition home or self-care (01) ==
LOC: NPINS 15:29
PROVIDERS: PCP Family Medicine; Visit Provider Nurse Practitioner Adult Health
DX: R30.0 Dysuria (principal)
CPT/HCPCS: 81001; 87086

== ENCOUNTER 2025-05-01 09:48 | Outpatient (CLI) | payer MEDICARE, BC, SELFPAY | END 2025-05-01 09:49 | disposition home or self-care (01) | PROVIDERS: PCP Family Medicine; Visit Provider Family Medicine | DX: R10.9 Unspecified abdominal pain (principal); R06.02 Shortness of breath | CPT/HCPCS: A0425; A0427 ==

== ENCOUNTER 2025-05-01 10:15 | Observation (INO) | payer MEDICARE, BC, SELFPAY ==
[2025-05-01] VITALS (38 sets, daily range): BP systolic 81–182; BP diastolic 42–105; PULSE 59–72; RESP 0–59; TEMP 36.7–37; O2SAT 79–96; BMI 41.2
--- OUTSIDE RECORDS SUMMARY | 2025-05-01 10:18 | XMS_ITS | Clinical Summary ---
Author Organization [employer] [facility] Address [address] [place] [phone] Care Team Providers Care Staple Processing Machine Operator Name Role Phone Juan Landry Primary Care Provider [phone] Allergies Active Allergy Reactions Criticality Noted Date [...] valve replacement 04/25/20 22 Current use of alf anticoagulation 022 Chronic heart failure 04/25/2022 Viral [...] 04/28/2017 04/29/2017 Impaired renal function 04/02 Acute IA 04/29/2017 Overview (04/26/2017): 20 yrs ago- stent [...] on file Legal Sex Female 3:31 PM OVEN LABORER Gender Identity Not on file Sexual Orientation Not on file Occupation Industry Job Start Date Job End Date retired Not on file Not on file Not on file Obstetrics History Last Filed Vital Signs Vital Sign Reading Time Taken Comments Blood Pressure 164/79 11/28/2024 11:29 AM OVEN LABORER Pulse 73 11/28/2024 11:29 AM OVEN LABORER Temperature 37.4 C (99.4 F) 11/28/2024 11:29 AM OVEN LABORER Respiratory Rate 16 11/28/2024 11:2 9 AM OVEN LABORER Oxygen Saturation 97% 11/28/2024 11: 29 AM OVEN LABORER Inhaled Oxygen Concentration - - Weight 120.7 kg (266 lb 3.2 oz) 11/28/2024 7:03 AM OVEN LABORER Height 167.6 cm (5' 6) 11/23/2024 2:11 PM OVEN LABORER Body Mass Index 42.97 11/23/2024 2:11 PM OVEN LABORER Plan of Treatment Health Maintenance Due Date Last Done Comments (IA) Tdap 1951 Depression screening for age 12+ [...] MEDICARE PART B HB ONLY [place] BLUE HB ONLY MEDICARE PART A HB ONLY [place] BLUE MR PB ONLY [place] BLUE HB ONLY MEDICARE PPS Advance Directives Documents on File Type Date Recorded Patient Client Support Coordinator Expl anation Healthcare Directive 09/09/2017 12:00 [...] Code Status Discussion: Reviewed Preferences Care Teams Staple Processing Machine Operator Relationship Specialty Start Date End Date Juan Landry PA [address] [place] [phone] PCP - General Physician Automobile Wrecker 06/20/23
--- NOTE | 2025-05-01 10:31 | ED.GENADULT ---
HPI - General Adult General Chief complaint: Weakness Stated complaint: weakness, shortness of breath Time Seen by Provider: 05/01/25 10:20 History of Present Illness HPI narrative: 85-year-old woman presenting to the emergency department via EMS initially red medical with concern of altered mental status Recently diagnosed with a breast cancer that was decided to not receive intervention. POLST indicates DNR with selective treatments. I verify this later with family. They would be interested to have some further information. Underlying history of COPD. Lately less alert and apparently with some abdominal pain as well. Few weeks ago was diagnosed with urinary tract infection and treated. A few days ago had urine cultured which reportedly grew nothing. Sofi unfortunately is not able to offer information to her current status. She does alert and open her eyes with prompting. Son who arrives later confirms that was in usual state of health 3 days ago at a picnic or some other gathering with family. What he is seeing now is unusual. He also confirms that she would not want heroic measures taken including ventilatory support of any sort. Appears to indicate that she does have some degree of heart failure though has not had fluid in her lungs before. Does have a history of sleep apnea using CPAP. Has a history of AV andrea ablation with pacemaker placement. Echocardiogram in January 2020 for an EF of 61%. Apparently did have 3 episodes of emesis this morning. Occasionally seems to be dry heaving? Related Data Home Medications ?Medication ?Instructions ?Recorded ?Confirmed acetaminophen 500 mg tablet 1,000 mg PO TID 12/24/24 05/01/25 allopurinol 100 mg tablet 100 mg PO DAILY 12/24/24 05/01/25 aspirin 81 mg tablet,delayed 81 mg PO DAILY 12/24/24 05/01/25 release atorvastatin 40 mg tablet 40 mg PO HS 12/24/24 05/01/25 calcium 600 mg (as 1 tab PO DAILY 12/24/24 05/01/25 carbonate)-vitamin D3 10 mcg (400 unit) tablet carvedilol 12.5 mg tablet 12.5 mg PO BID 12/24/24 05/01/25 enalapril maleate 20 mg tablet 20 mg PO BID 12/24/24 05/01/25 fluticasone fur. 200 mcg-umeclid 1 ea inhalation DAILY 12/24/24 05/01/25 62.5 mcg-vilant 25 mcg inhalat.powder (Trelegy Ellipta) potassium chloride 20 mEq 20 meq PO BID 12/24/24 05/01/25 tablet,extended release torsemide 20 mg tablet 40 mg PO BID 12/24/24 05/01/25 vitamins A,C,P-phcf-wnykzc 2,148 1 tab PO DAILY 12/25/24 05/01/25 mcg-113 mg-45 mg-17.4 mg tablet (Eye Multivitamin) warfarin 2 mg tablet 2 mg PO MOFR@17 12/25/24 05/01/25 albuterol sulfate 2.5 mg/3 mL 2.5 mg NEB TID wheezing 05/01/25 05/01/25 (0.083 %) solution for nebulization guaifenesin 600 mg tablet, 600 mg PO BID 05/01/25 05/01/25 extended release 12 hr (Mucinex) hydromorphone 2 mg tablet 2 mg PO Q6H PRN 05/01/25 05/01/25 melatonin 3 mg tablet 3 mg PO HS 05/01/25 05/01/25 warfarin 2.5 mg tablet 2.5 mg PO SUTUWETHSA@05/01/25 05/01/25 Allergies Allergy/AdvReac Type Severity Reaction Status Date / Time oxycodone Allergy Unknown Verified 01/27/25 17:39 Review of Systems Status of ROS: Reports: unobtainable due to mental status [facility] Medical History Cognitive impairment ?R41.89 - Other symptoms and signs involving cognitive functions and awareness (ICD-10) Pancreatic cyst ?K86.2 - Cyst of pancreas (ICD-10) Lung nodule ?R91.1 - Solitary pulmonary nodule (ICD-10) Rhabdomyolysis ?M62.82 - Rhabdomyolysis (ICD-10) Breast cancer ?C50.919 - Malignant neoplasm of unspecified site of unspecified female breast (ICD-10) Obesity ?E66.9 - Obesity, unspecified (ICD-10) Heart failure with preserved ejection fraction ?I50.30 - Unspecified diastolic (congestive) heart failure (ICD-10) History of cardiac pacemaker ?Z95.0 - Presence of cardiac pacemaker (ICD-10) Sleep apnea ?G47.30 - Sleep apnea, unspecified (ICD-10) Paroxysmal atrial fibrillation ?I48.0 - Paroxysmal atrial fibrillation (ICD-10) 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 Then hospitalized with weakness and multiple other medical problems. Now at [address] [place] [address]. She is present here with her son, Kenneth, and [id number]. Kenneth is healthcare power of employee benefits attorney. Code status is DNR. Former smoker having quit about 40 years ago. Previously drank alcohol regularly but not currently drinking What is your current living situation?: I presently have a place to live Problems where you live: no known problems Problems where you live details: N/A In the past 12 months, utilities in danger of being shut off: no In past 12 months, lack of transportation kept you from medical appts, meetings, work, or getting things needed for daily living: no In the past 12 mos, have been you worried that your food would run out before you had money to buy more?: never true In the past 12 mos, the food you bought just didn't last and you didn't have money to buy more?: never true Highest level of school completed/degree received: high school graduate Smoking Status: Former smoker How often do you have a drink containing alcohol: never How often do you have six or more drinks on one occasion: Never AUDIT-C Alcohol total score: 0 Non-prescribed substance use: denies use How often does anyone, including family, friends and others, physically hurt you: never How often does anyone, including family, friends and others, insult or talk down to you: never How often does anyone, including family, friends and others, threaten you with harm: never How often does anyone, including family, friends and others, scream or curse at you: never service: No Exam Narrative: Exam Narrative: Is breathing heavily though not rapidly in a period of time will become less responsive does not appear to be breathing for about 10-15 seconds. Oxygen saturations did not drop. Lips are blue. Left hand is little cool low relative to the right. Lower extremities with hemosiderin deposition left greater than right but without significant edema. Oropharynx is sticky. She will alert to her name intermittently and then breathes heavily and then drifts off again. Lungs actually with good breath sounds when she is moving air. This sound clear across the upper lungs. There is some crepitus in the bases. Abdomen is overweight and soft. Does not appear to be clearly tender although maybe intermittently so in the left lower abdomen. Const: Vital Signs, click to edit/add: Vital Signs - 24 hr 05/01/25 10:28 05/01/25 10:29 05/01/25 10:30 Temperature 98.6 F Pulse Rate 66 62 Pulse Rate [Pulse Oximeter] 61 Respiratory Rate 30 H 38 H 14 Blood Pressure Blood Pressure [Le ft Upper Arm] 122/105 H Pulse Oximetry 91 92 92 Oxygen Delivery Me thod Nasal Cannula Oxygen Flow Rate 3 05/01/25 10:34 05/01/25 10:45 05/01/25 10:51 Temperature Pulse Rate 62 63 Pulse Rate [Pulse Oximeter] Respiratory Rate 40 H 11 L 0 L Blood Pressure 85/64 L Blood Pressure [Le ft Upper Arm] Pulse Oximetry 93 92 Oxygen Delivery Me thod Oxygen Flow Rate 05/01/25 10:52 05/01/25 10:58 05/01/25 11:00 Temperature Pulse Rate 72 63 64 Pulse Rate [Pulse Oximeter] Respiratory Rate 12 45 H 59 H Blood Pressure 182/81 H Blood Pressure [Le ft Upper Arm] Pulse Oximetry 92 96 93 Oxygen Delivery Me thod Oxygen Flow Rate 05/01/25 11:03 05/01/25 11:15 05/01/25 11:30 Temperature Pulse Rate 60 69 65 Pulse Rate [Pulse Oximeter] Respiratory Rate 11 L 29 H 34 H Blood Pressure 181/83 H Blood Pressure [Le ft Upper Arm] Pulse Oximetry 95 93 82 L Oxygen Delivery Me thod Oxygen Flow Rate 05/01/25 11:33 05/01/25 11:45 05/01/25 11:46 Temperature Pulse Rate 61 60 Pulse Rate [Pulse Oximeter] Respiratory Rate 29 H 9 L 8 L Blood Pressure 135/58 L 94/58 L Blood Pressure [Le ft Upper Arm] Pulse Oximetry 79 L 92 Oxygen Delivery Me thod Nasal Cannula Oxygen Flow Rate 3 05/01/25 11:55 05/01/25 12:00 05/01/25 12:02 Temperature Pulse Rate 60 60 Pulse Rate [Pulse Oximeter] Respiratory Rate 19 11 L Blood Pressure 81/47 L Blood Pressure [Le ft Upper Arm] Pulse Oximetry 92 91 91 Oxygen Delivery Me thod Nasal Cannula Nasal Cannula Oxygen Flow Rate 2 2 05/01/25 12:28 05/01/25 12:32 05/01/25 12:33 Temperature Pulse Rate 61 60 60 Pulse Rate [Pulse Oximeter] Respiratory Rate 25 H 20 20 Blood Pressure 95/47 L 101/42 L Blood Pressure [Le ft Upper Arm] Pulse Oximetry 91 90 90 Oxygen Delivery Me thod Nasal Cannula Nasal Cannula Oxygen Flow Rate 2 2 05/01/25 12:45 05/01/25 12:46 05/01/25 13:00 Temperature Pulse Rate 59 L 60 60 Pulse Rate [Pulse Oximeter] Respiratory Rate 19 18 24 Blood Pressure 93/50 L Blood Pressure [Le ft Upper Arm] Pulse Oximetry 89 89 91 Oxygen Delivery Me thod Oxygen Flow Rate 05/01/25 13:02 05/01/25 13:03 05/01/25 13:15 Temperature 98.1 F Pulse Rate 60 59 L 60 Pulse Rate [Pulse Oximeter] Respiratory Rate 20 19 19 Blood Pressure 106/48 L Blood Pressure [Le ft Upper Arm] Pulse Oximetry 91 90 92 Oxygen Delivery Me thod Nasal Cannula Oxygen Flow Rate 2 05/01/25 13:17 Temperature 98.1 F Pulse Rate 59 L Pulse Rate [Pulse Oximeter] Respiratory Rate 18 Blood Pressure 103/65 Blood Pressure [Le ft Upper Arm] Pulse Oximetry 91 Oxygen Delivery Me thod Oxygen Flow Rate Documenting provider has reviewed patient's vital signs: yes Course Vital Signs Vital signs: Initial Vital Signs Temperature 98.6 F 05/01/25 10:28 Temperature Source Temporal Artery Scan 05/01/25 10:28 Pulse Rate 61 05/01/25 10:28 Respiratory Rate 30 H 05/01/25 10:28 Blood Pressure 122/105 H 05/01/25 10:28 Blood Pressure Mean 110 H 05/01/25 10:28 Blood Pressure Position Supine 05/01/25 10:28 Pulse Oximetry 91 05/01/25 10:28 Oxygen Delivery Method Nasal Cannula 05/01/25 10:28 Oxygen Flow Rate 3 05/01/25 10:28 Vital Signs Temperature 98.6 F 05/01/25 10:28 Pulse Rate 61 05/01/25 10:28 Respiratory Rate 30 H 05/01/25 10:28 Blood Pressure 122/105 H 05/01/25 10:28 Pulse Oximetry 91 05/01/25 10:28 Oxygen Delivery Method Nasal Cannula 05/01/25 10:28 Oxygen Flow Rate 3 05/01/25 10:28 Temperature 98.1 F 05/01/25 13:17 Pulse Rate 59 L 05/01/25 13:17 Respiratory Rate 18 05/01/25 13:17 Blood Pressure 103/65 05/01/25 13:17 Pulse Oximetry 91 05/01/25 13:17 Oxygen Delivery Method Nasal Cannula 05/01/25 13:02 Oxygen Flow Rate 2 05/01/25 13:02 Medications Administered Medications: Discontinued Medications Generic Name Dose Route Start Last Admin Trade Name Freq PRN Reason Stop Dose Admin Sodium Chloride 500 mls @ 500 mls/hr 05/01/25 11:00 05/01/25 12:41 0.9 % Sodium Chloride 500 Ml IV 05/01/25 11:59 Infused .Q1H ONE Infusion Sodium Chloride 1,000 mls @ 1,000 mls/hr 05/01/25 12:21 05/01/25 12:41 0.9 % Sodium Chloride 1000 Ml IV 05/01/25 13:20 1,000 mls/hr .Q1H ONE Administration Piperacillin Sod/Tazobactam 100 mls @ 200 mls/hr 05/01/25 12:22 05/01/25 13:07 Sod 3.375 gm/ Sodium Chloride IVPB 05/01/25 12:23 Infused ONCE ONE Infusion Morphine Sulfate 2 mg 05/01/25 11:02 05/01/25 11:10 Morphine 2 Mg/Ml Inj IVP 05/01/25 11:03 2 mg ONCE ONE Administration Ondansetron HCl 4 mg 05/01/25 11:02 05/01/25 11:10 Ondansetron 2 Mg/Ml Inj IVP 05/01/25 11:03 4 mg ONCE ONE Administration Medical Decision Making MDM Narrative Medical decision making narrative: Initial blood pressure is reassuring. Behavior is not. Unclear what is occurring here. Clarify with family that they would not want resuscitative measures. Would have concern of overwhelming infection and potential sepsis or recent cardiac event and exacerbation of heart failure. Respiratory therapy is here placing low-flow oxygen in the setting of COPD. Maintaining oxygen saturations between 88 and 92% does not appear to be difficult right now. Will initiate a bolus of fluids pending return of labs. I have initially requested scans of chest abdomen and pelvis. She is already anticoagulated however with Coumadin. On reassessment I am not sure is well enough to go through CT. Will start with portable chest x-ray. Further labored breathing altered mentation and nursing concerns of discomfort have ordered for morphine and Zofran. On reassessment looks much more comfortable. Color has improved. Blood pressure with manual check is 180/80 approximately. Lactate returns at 3.7. Venous blood gases look good. I still have concern of infection. We initiating fluid bolus. Family appears to remain uncertain as to what degree of interventions they would like other than certainly no cardiopulmonary resuscitation. Requires very little oxygen support at this point and no blood pressure support otherwise. At this point I am anticipating obtaining cath urine and initiating broad-spectrum antibiotics. May yet need though with altered mentation and anticoagulation to CT [place] [id number]. Urine is cathed and looks infected results still pending. Sound like was only cathed for 50 mL. Suspected to be dry. This might be contributing to this elevated lactate as well. D-dimer of 0.96 with an INR though of 2.1 to. Troponin returns at 0.07 in the setting of a BNP of 7350 and so would be cautious with fluid resuscitation. Has received of 500 mL bolus of normal saline and with good blood pressures at this time. Pressures repeatedly now at 90s over 60s. This is after morphine but will presume indicates degree of illness as well. Family does use the term comfort cares although clearly want more than that potentially including antibiotics and potentially pressors. Have initiated another L of fluids. INDICATION: Altered mental status COMPARISON: 01/27/2025 CT of the head TECHNIQUE: CT of the head without contrast. FINDINGS: Brain, ventricles, and extra-axial spaces: No acute intracranial hemorrhage. A punctate old lacunar infarct is again noted at the left caudate head. Punctate lacunar infarct at the right caudate head which is new since 01/27/2025, but otherwise age-indeterminate (01/23). [id number] hypoattenuating changes in the white matter which are nonspecific, but commonly attributable to chronic microangiopathic change. Mild parenchymal volume loss with commensurate size of the ventricles and sulci. A few punctate sulcal calcifications are again noted in the right parietal lobe. There are intracranial vascular calcifications. Bones: Bilateral calvarial hyperostosis predominantly in the frontal bones. No acute osseous findings. Minimal paranasal sinus mucosal thickening. Moderate right mastoid effusion. Additional findings: Status post bilateral lens replacement. IMPRESSION: 1. No acute intracranial hemorrhage. 2. Punctate lacunar infarct at the right caudate head is new since 01/27/2025, but otherwise age indeterminate. Similar old punctate left caudate head lacunar infarct. 3. [id number] hypoattenuating changes in the white matter which are nonspecific, but commonly attributable to chronic microangiopathic change. 4. Moderate right mastoid effusion. Please note that all CT scans at this facility use dose modulation, iterative reconstruction, and/or weight-based dosing when appropriate to reduce radiation dose to as low as reasonably achievable. Dictated by Ottoniel Diaz MD @ 05/01/2025 12:53:34 PM FINDINGS: CHEST The thoracic inlet is unremarkable. The thyroid gland is within normal limits. The thoracic aorta is nonaneurysmal with moderate scattered atherosclerotic calcification. Aortic valve prosthesis is appreciated. There is a dual-chamber pacer again seen. Minimal central bronchial thickening with persistent mild narrowing of the AP trachea and proximal bronchial diameter likely representing persistent mild tracheobronchomalacia. Redemonstration of a spiculated mass within the outer lower left breast measuring up to 4.6 x 3.5 centimeters. Re-demonstration of extensive pathologic lymph nodes within the left chest wall and axilla with somewhat increasing upper thoracic and subpectoral lymph nodes from previous exam likely representing progression of disease and metastatic changes with lymph node now measuring up to 1.2 centimeters, previously measuring 6.6 millimeters. Minimal paraseptal emphysematous changes of the upper lobes are appreciated with dependent basilar atelectasis and interstitial prominence which may represent mild pulmonary vascular congestion. Stable pleural-based pulmonary nodule within the left lower lobe measuring 4.6 millimeters. The thoracic osseus structures are intact without fracture, lytic, or blastic lesion. The thoracic vertebral body heights are grossly stable from comparison with moderate to severe degenerative disc height loss and marginal osteophyte formation. No obvious lytic or blastic changes are appreciated. ABDOMEN AND PELVIS The liver is normal in attenuation and size. The spleen is normal in attenuation and size. Minimal dependent calculi within the gallbladder lumen. There is no intrahepatic or common ductal dilatation. The stomach and duodenum are grossly unremarkable. The pancreas is normal in size without significant atrophy or inflammatory changes. The adrenal glands are unremarkable without evidence of adenoma. Hypertrophy of the right kidney with hypoplasia/atrophy of the left kidney and collecting system. Mild prominence of the right collecting system without obvious obstructive uropathy. There is moderate stool seen throughout the proximal colon with moderate to severe rectosigmoid diverticulosis with questionable mild thickening and pericolonic inflammation of the mid rectosigmoid colon. The appendix is unremarkable without significant inflammatory change. The abdominal aorta is mildly aneurysmal at the level of the proximal left common iliac artery measuring up to 2.4 by 2.6 centimeters. Otherwise, the proximal infrarenal abdominal aorta is nonaneurysmal.. Decompressed appearance of the bladder with a Johnson catheter in satisfactory position. There is no pathologically enlarged epigastric, mesenteric, retroperitoneal, or pelvic sidewall lymph node. The anterior abdominal wall is grossly intact without significant hernias. There is no free air or free fluid. Moderate to severe degenerative changes of the bilateral hips and sacroiliac joints. The lumbar vertebral body heights are grossly maintained with moderate to severe degenerative disc disease. Minimal endplate subchondral cystic changes are appreciated. No significant spondylolisthesis. No obvious lytic or blastic lesion. Impression: 1. Mild tracheobronchomalacia with narrowing of the AP diameter of the trachea and proximal bronchi with diffuse interstitial prominence likely representing mild pulmonary vascular congestion and basilar atelectasis. 2. 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 No other obvious metastatic changes are appreciated. 3. Severe distal rectosigmoid diverticulosis with questionable focal thickening and pericolonic inflammation of the sigmoid colon which may represent mild diverticulitis. Correlate with history of clinical symptoms. Please note that all CT scans at this facility use dose modulation, iterative reconstruction, and/or weight-based dosing when appropriate to reduce radiation dose to as low as reasonably achievable. Dictated by Jelani Lamb MD @ 05/01/2025 12:53:57 PM Pressures stabilized around 100s over 60s. After more considerations and discussing of CT findings, family would like to begin with standard cares of supportive fluids and antibiotics. It is possible they may want more interventions requiring CCU level care. Discussed with hospitalist to his thankfully accepting for admission. Medical Records Medical records reviewed: Yes I reviewed the patient's medical records Lab Data Lab results reviewed: Yes I reviewed the patient's lab results Labs: Lab Results 05/01/25 05/01/25 05/01/25 Range/Units 10:39 10:42 11:01 WBC 12.00 H (4.50-11.00) K/uL RBC 4.71 (4.00-5.20) m/uL Hgb 14.3 (12.0-16.0) gm/dL Hct 45.2 (33.0-51.0) % MCV 96 (80-100) fL MCH 30 (26-34) pg MCHC 32 (32-36) gm/dL RDW Coeff of Jarrett 17.2 H (11.5-15.5) % Plt Count 189 (140-440) K/uL Neut % (Auto) 94.9 H (42.0-72.0) % Lymph % (Auto) 3.2 L (20-44) % [place] % (Auto) 1.2 (0.0-11.0) % Eos % (Auto) 0.1 (0.0-7.0) % Baso % (Auto) 0.3 (0.0-3.0) % Neut # (Auto) 11.40 H (1.7-7.0) K/uL Lymph # (Auto) 0.40 L (0.90-2.90) K/uL [place] # (Auto) 0.10 (0.00-0.90) K/UL Eos # (Auto) 0.00 (0.00-0.50) K/uL Baso # (Auto) 0.00 (0.00-0.30) K/uL Abs Immat Gran (auto) 0.00 (0.00-0.30) K/uL Imm/Tot Granulo (auto) 0.3 % INR 2.12 H (0.91-1.10) VBG pH 7.396 (7.32-7.43) VBG pCO2 43 (40-50) mmHG VBG pO2 31.3 (25-47) mmHG VBG HCO3 27 (21-28) mmol/L Sodium 142 (135-149) mmol/L Potassium 4.2 (3.6-5.1) mmol/L Chloride 105 (96-114) mmol/L Carbon Dioxide 26 (20-32) mmol/L Anion Gap 11 (7-15) mEq/L BUN 24 (7-30) mg/dL Creatinine 1.3 (0.5-1.5) mg/dL Estimated Creat Clear 29.08 Estimated GFR 40 ml/min Glucose 97 (60-115) mg/dL Lactate 3.7 H (0.5-1.9) mmol/L Calcium 9.4 (8.4-10.6) mg/dL Troponin I 0.07 H* (0.01-0.04) ng/mL C-Reactive Protein 1.8 H (0.5-1.0) mg/dL NT-Pro-B Natriuret Pep 7350 H (See Note) pg/mL Urine Color (Yellow) Urine Appearance (Clear) Urine pH (5.0-8.5) Ur Specific Noble (1.000-1.030) Urine Protein (Negative) Urine Glucose (UA) (Negative) Urine Ketones (Negative) Urine Blood (Negative) Urine Nitrite (Negative) Urine Bilirubin (Negative) Urine Urobilinogen (0.2-1.0) Ur Leukocyte Esterase (Negative) Urine RBC (0-2) Urine WBC (0-5) Urine WBC Clumps (None) Ur Squamous Epith Cells (None-Few) Urine Bacteria (None) Lab Acknowledgement Test Added POC Creatinine 1.5 H (0.6-1.3) mg/dl 05/01/25 05/01/25 Range/Units 11:05 11:30 WBC (4.50-11.00) K/uL RBC (4.00-5.20) m/uL Hgb (12.0-16.0) gm/dL Hct (33.0-51.0) % MCV (80-100) fL MCH (26-34) pg MCHC (32-36) gm/dL RDW Coeff of Jarrett (11.5-15.5) % Plt Count (140-440) K/uL Neut % (Auto) (42.0-72.0) % Lymph % (Auto) (20-44) % [place] % (Auto) (0.0-11.0) % Eos % (Auto) (0.0-7.0) % Baso % (Auto) (0.0-3.0) % Neut # (Auto) (1.7-7.0) K/uL Lymph # (Auto) (0.90-2.90) K/uL [place] # (Auto) (0.00-0.90) K/UL Eos # (Auto) (0.00-0.50) K/uL Baso # (Auto) (0.00-0.30) K/uL Abs Immat Gran (auto) (0.00-0.30) K/uL Imm/Tot Granulo (auto) % INR (0.91-1.10) VBG pH (7.32-7.43) VBG pCO2 (40-50) mmHG VBG pO2 (25-47) mmHG VBG HCO3 (21-28) mmol/L Sodium (135-149) mmol/L Potassium (3.6-5.1) mmol/L Chloride (96-114) mmol/L Carbon Dioxide (20-32) mmol/L Anion Gap (7-15) mEq/L BUN (7-30) mg/dL Creatinine (0.5-1.5) mg/dL Estimated Creat Clear Estimated GFR ml/min Glucose (60-115) mg/dL Lactate (0.5-1.9) mmol/L Calcium (8.4-10.6) mg/dL Troponin I (0.01-0.04) ng/mL C-Reactive Protein (0.5-1.0) mg/dL NT-Pro-B Natriuret Pep (See Note) pg/mL Urine Color Dark yellow (Yellow) Urine Appearance Slightly Cloudy A (Clear) Urine pH 5.5 (5.0-8.5) Ur Specific Noble 1.020 (1.000-1.030) Urine Protein 3+ A (Negative) Urine Glucose (UA) Negative (Negative) Urine Ketones Negative (Negative) Urine Blood 3+ A (Negative) Urine Nitrite Negative (Negative) Urine Bilirubin 1+ A (Negative) Urine Urobilinogen 0.2 (0.2-1.0) Ur Leukocyte Esterase 3+ A (Negative) Urine RBC 10-25 A (0-2) Urine WBC >100 A (0-5) Urine WBC Clumps Few A (None) Ur Squamous Epith Cells Few (None-Few) Urine Bacteria Many A (None) Lab Acknowledgement Test Added POC Creatinine (0.6-1.3) mg/dl ECG Data Attestation: I personally reviewed and interpreted this ECG as follows: (Ventricular paced rhythm at 60) Critical Care Time Critical Care Time Critical Care Time: Yes Attestation: The patient required my highest level preparedness to intervene emergently and I personally spent this critical care time directly and personally managing the patient. This critical care time included: Obtaining a history; Examining the patient; Pulse oximetry; Ordering and reviewing of studies; Arranging urgent treatment with development of a management plan; Evaluation of patients response to treatment; Frequent reassessment discussions with other providers. This critical care time was performed to assess and manage the high probability of imminent life-threatening deterioration that could result in multiorgan failure. It was exclusive of separate billable procedures and treating other patients and teaching time. Total Critical Care Time in Minutes: 80 Discharge Plan Discharge Clinical Impression: Sepsis, Urinary tract infection, Altered mental status Patient Disposition: Admitted As Inpatient Condition: Guarded
[2025-05-01 10:52] LABS: Creatinine, Point-of-Care* 1.5 mg/dl (0.6-1.3)
[2025-05-01 10:54] LABS: Lactate* 3.7 mmol/L (0.5-1.9)
[2025-05-01 10:57] LABS: Hematocrit 45.2 % (33.0-51.0); Hemoglobin* 14.3 gm/dL (12.0-16.0); Immature Granulocytes Pct Auto 0.3 %; Mean Corpuscular HGB Conc 32 gm/dL (32-36); Mean Corpuscular Hemoglobin 30 pg (26-34); Mean Corpuscular Volume 96 fL (80-100); RDW Coefficient of Variation % 17.2 % (11.5-15.5); Red Blood Count 4.71 m/uL (4.00-5.20); White Blood Count* 12.00 K/uL (4.50-11.00)
[2025-05-01 10:58] LABS: Immature Granulocytes Abs Auto 0.00 K/uL (0.00-0.30); Lymphocytes Absolute Auto 0.40 K/uL (0.90-2.90); Slide Review Reflex No
[2025-05-01 11:09] LABS: Chloride* 105 mmol/L (96-114); Potassium* 4.2 mmol/L (3.6-5.1); Sodium* 142 mmol/L (135-149)
[2025-05-01] MEDS: ONDANSETRON 2 MG/ML inj 4 MG IVP (11:10)
[2025-05-01 11:12] LABS: Blood Urea Nitrogen* 24 mg/dL (7-30); Creatinine* 1.3 mg/dL (0.5-1.5); Est. Creatinine Clearance* 29.08; Estimated Glomerular Filt Rate 40 ml/min
[2025-05-01 11:13] LABS: Anion Gap 11 mEq/L (7-15); Calcium* 9.4 mg/dL (8.4-10.6); Carbon Dioxide* 26 mmol/L (20-32); Glucose* 97 mg/dL (60-115); HCO3 VBG 27 mmol/L (21-28); PCO2 VBG 43 mmHG (40-50); PO2 VBG 31.3 mmHG (25-47); pH VBG 7.396 (7.32-7.43)
[2025-05-01 11:24] LABS: INR 2.12 (0.91-1.10); Prothrombin Time 24.8 Seconds
--- NOTE | 2025-05-01 11:24 | CRLHL7_ITS ---
For Patients: As a result of the Century Cures Act, medical imaging exams and procedure reports are released immediately into your electronic medical record. You may view this report before your referring provider. If you have questions, please contact your health care provider. INDICATION: Altered mental status COMPARISON: 01/27/2025 CT of the head TECHNIQUE: CT of the head without contrast. FINDINGS: Brain, ventricles, and extra-axial spaces: No acute intracranial hemorrhage. A punctate old lacunar infarct is again noted at the left caudate head. Punctate lacunar infarct at the right caudate head which is new since 01/27/2025, but otherwise age-indeterminate (01/23). [id number] hypoattenuating changes in the white matter which are nonspecific, but commonly attributable to chronic microangiopathic change. Mild parenchymal volume loss with commensurate size of the ventricles and sulci. A few punctate sulcal calcifications are again noted in the right parietal lobe. There are intracranial vascular calcifications. Bones: Bilateral calvarial hyperostosis predominantly in the frontal bones. No acute osseous findings. Minimal paranasal sinus mucosal thickening. Moderate right mastoid effusion. Additional findings: Status post bilateral lens replacement. IMPRESSION: 1. No acute intracranial hemorrhage. 2. Punctate lacunar infarct at the right caudate head is new since 01/27/2025, but otherwise age indeterminate. Similar old punctate left caudate head lacunar infarct. 3. [id number] hypoattenuating changes in the white matter which are nonspecific, but commonly attributable to chronic microangiopathic change. 4. Moderate right mastoid effusion. Please note that all CT scans at this facility use dose modulation, iterative reconstruction, and/or weight-based dosing when appropriate to reduce radiation dose to as low as reasonably achievable. Dictated by Ottoniel Diaz MD @ 05/01/2025 12:53:34 PM (Electronically Signed)
[2025-05-01] MEDS: 0.9 % SODIUM CHLORIDE 500 ML 500 ML IV (11:30)
[2025-05-01 11:36] LABS: NT Pro B Type NatriureticPept* 7350 pg/mL (See Note)
[2025-05-01 12:04] LABS: Appearance Urine Slightly Cloudy (Clear)
--- NOTE | 2025-05-01 12:04 | CRLHL7_ITS ---
For Patients: As a result of the Century Cures Act, medical imaging exams and procedure reports are released immediately into your electronic medical record. You may view this report before your referring provider. If you have questions, please contact your health care provider. Indication: Altered mental status, mild hypoxia and abdominal pain Technique: Volumetric multidetector CT images of the chest, abdomen, and pelvis were obtained without the administration of intravenous contrast. Comparison: CT chest with contrast December 24, 2024 FINDINGS: CHEST The thoracic inlet is unremarkable. The thyroid gland is within normal limits. The thoracic aorta is nonaneurysmal with moderate scattered atherosclerotic calcification. Aortic valve prosthesis is appreciated. There is a dual-chamber pacer again seen. Minimal central bronchial thickening with persistent mild narrowing of the AP trachea and proximal bronchial diameter likely representing persistent mild tracheobronchomalacia. Redemonstration of a spiculated mass within the outer lower left breast measuring up to 4.6 x 3.5 centimeters. Re-demonstration of extensive pathologic lymph nodes within the left chest wall and axilla with somewhat increasing upper thoracic and subpectoral lymph nodes from previous exam likely representing progression of disease and metastatic changes with lymph node now measuring up to 1.2 centimeters, previously measuring 6.6 millimeters. Minimal paraseptal emphysematous changes of the upper lobes are appreciated with dependent basilar atelectasis and interstitial prominence which may represent mild pulmonary vascular congestion. Stable pleural-based pulmonary nodule within the left lower lobe measuring 4.6 millimeters. The thoracic osseus structures are intact without fracture, lytic, or blastic lesion. The thoracic vertebral body heights are grossly stable from comparison with moderate to severe degenerative disc height loss and marginal osteophyte formation. No obvious lytic or blastic changes are appreciated. ABDOMEN AND PELVIS The liver is normal in attenuation and size. The spleen is normal in attenuation and size. Minimal dependent calculi within the gallbladder lumen. There is no intrahepatic or common ductal dilatation. The stomach and duodenum are grossly unremarkable. The pancreas is normal in size without significant atrophy or inflammatory changes. The adrenal glands are unremarkable without evidence of adenoma. Hypertrophy of the right kidney with hypoplasia/atrophy of the left kidney and collecting system. Mild prominence of the right collecting system without obvious obstructive uropathy. There is moderate stool seen throughout the proximal colon with moderate to severe rectosigmoid diverticulosis with questionable mild thickening and pericolonic inflammation of the mid rectosigmoid colon. The appendix is unremarkable without significant inflammatory change. The abdominal aorta is mildly aneurysmal at the level of the proximal left common iliac artery measuring up to 2.4 by 2.6 centimeters. Otherwise, the proximal infrarenal abdominal aorta is nonaneurysmal.. Decompressed appearance of the bladder with a Johnson catheter in satisfactory position. There is no pathologically enlarged epigastric, mesenteric, retroperitoneal, or pelvic sidewall lymph node. The anterior abdominal wall is grossly intact without significant hernias. There is no free air or free fluid. Moderate to severe degenerative changes of the bilateral hips and sacroiliac joints. The lumbar vertebral body heights are grossly maintained with moderate to severe degenerative disc disease. Minimal endplate subchondral cystic changes are appreciated. No significant spondylolisthesis. No obvious lytic or blastic lesion. Impression: 1. Mild tracheobronchomalacia with narrowing of the AP diameter of the trachea and proximal bronchi with diffuse interstitial prominence likely representing mild pulmonary vascular congestion and basilar atelectasis. 2. 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 No other obvious metastatic changes are appreciated. 3. Severe distal rectosigmoid diverticulosis with questionable focal thickening and pericolonic inflammation of the sigmoid colon which may represent mild diverticulitis. Correlate with history of clinical symptoms. Please note that all CT scans at this facility use dose modulation, iterative reconstruction, and/or weight-based dosing when appropriate to reduce radiation dose to as low as reasonably achievable. Dictated by Jelani Lamb MD @ 05/01/2025 12:53:57 PM (Electronically Signed)
[2025-05-01] MEDS: PIPERACILLIN/TAZOBACTAM 3.375 GM in 0.9 % SODIUM CHLORIDE Mini-bag 100 ML IVPB (12:37)
--- NOTE | 2025-05-01 15:31 | PM.IMHP1 ---
Assessment and Plan Assessment and plan (1) Acute metabolic encephalopathy: Problem comment: Very likely secondary to sepsis from urinary tract infection. Prolonged QT noted. -Schedule low dose gabapentin if patient able to take PO -Zyprexa available IV, use sparingly given long QT -Avoid anticholinergics, benzodiazpines and opioids as much as possible, but will need to treat pain Status: Acute (2) Urinary tract infection: Problem comment: Presented with sepsis. UA consistent with infection. Notably had UC last week showing no growth on culture 04/30/25. UA now with many bacteria, pyuria, hematuria. -Received one dose of IV zosyn. -Transitioned to comfort care, so no further antibiotic. Status: Acute (3) Sepsis: Problem comment: Meets sepsis criteria with hypotension, acute respiratory failure, acute encephalopathy, leukocytosis, elevated lactate, COLLIN, elevated troponin. Source appears to be UTI Status: Acute (4) COPD (chronic obstructive pulmonary disease): Problem comment: - prn PRN albuterol, not on daily COPD LABA/LAMA medications Status: Acute (5) Cognitive impairment: Problem comment: - short term memory loss Status: Acute (6) Decompensated heart failure with preserved ejection fraction (HFpEF): Problem comment: Patient with pitting edema to b/l LE, pulmonary edema on CT, proBNP elevation at 7350. Now transitioned to comfort care. On torsemide 40mg BID at home. Currently severely oliguric -Give 40mg lasix now. -Continue IV lasix for comfort Status: Acute (7) Breast cancer: Problem comment: - Left breast mass diagnosed as breast cancer in October 2024. Patient has declined further evaluation or treatment. Likely metastatic to lymph nodes in the left axilla - patient and family aware, have elected not to treat Status: Acute (8) Sleep apnea: Problem comment: -On home CPAP Status: Acute (9) Paroxysmal atrial fibrillation: Problem comment: - paced rhythm Status: Acute (10) Chronic anticoagulation: Problem comment: - Will discontinue warfarin on comfort measures Status: Acute (11) Hypertension: Problem comment: -underlying diastolic heart heart failure likely attributable to hypertensive cardiomyopathy Status: Acute (12) Acute kidney injury superimposed on stage 3a chronic kidney disease: Problem comment: Likely secondary to sepsis. Transitioning to comfort measures, no further monitoring Status: Acute Total Time Spent Total Time Spent: 75 minutes spent in chart review, discussion with family, patient evaluation and management and documentation Hospitalist- H&P: HPI History of Present Illness Time Seen by Provider: 15:31 Date Seen: 05/01/25 Chief complaint: weakness, shortness of breath Narrative: Sofi Martinez is a 85 year old female with history of metastatic breast cancer (not seeking treatment), CVA in December, COPD, HTN, HLD, paroxysmal atrial fibrillation, HIEU, CKD stage 3, cognitive impairment and recurrent urinary tract infections who resides in a [place] [facility]. She was in her usual state of health until about 3am, when nursing staff reports that she complained of shortness of breath, increased pain (possibly back, possibly low abdomen), and nausea. She had a few episodes of emesis and seemed to have altered mental status. She was brought to the hospital, where her breathing was irregular with occasional heaviness, apneic periods and tachypnea. Blood pressure was also variable with severe hypotension at times. Heart rate has been consistently in the 50s-60s and O2 sats largely in the low 90s requiring 2 lpm supplemental O2. She was intermittently moaning with altered mental status. In the ER, her work up was consistent with UTI with sepsis (hypotension, leukocytosis, elevated lactate) with evidence of end-organ damage with COLLIN (creatinine 1.3 over baseline 1.0), elevated troponin, metabolic encephalopathy. She was treated with IVF and IV zosyn. Discussed the situation with her family and they have elected to transition her to comfort measures in the setting of metastatic cancer with no plan to treat. Review of Systems Status of ROS: Reports: unobtainable due to medical condition Medical Decision Making Medical Decision Making Has patient completed a Health Care Directive: Yes [facility]SH [facility] Medical History Cognitive impairment ?R41.89 - Other symptoms and signs involving cognitive functions and awareness (ICD-10) Pancreatic cyst ?K86.2 - Cyst of pancreas (ICD-10) Lung nodule ?R91.1 - Solitary pulmonary nodule (ICD-10) Rhabdomyolysis ?M62.82 - Rhabdomyolysis (ICD-10) Breast cancer ?C50.919 - Malignant neoplasm of unspecified site of unspecified female breast (ICD-10) Obesity ?E66.9 - Obesity, unspecified (ICD-10) Heart failure with preserved ejection fraction ?I50.30 - Unspecified diastolic (congestive) heart failure (ICD-10) History of cardiac pacemaker ?Z95.0 - Presence of cardiac pacemaker (ICD-10) Sleep apnea ?G47.30 - Sleep apnea, unspecified (ICD-10) Paroxysmal atrial fibrillation ?I48.0 - Paroxysmal atrial fibrillation (ICD-10) Chronic anticoagulation ?Z79.01 - detention (current) use of anticoagulants (ICD-10) Hypertension ?I10 - Essential (primary) hypertension (ICD-10) Stage 3 chronic kidney disease ?N18.30 - Chronic kidney disease, stage 3 unspecified (ICD-10) COPD exacerbation ?J44.1 - Chronic obstructive pulmonary disease with (acute) exacerbation (ICD-10) Surgical History S/p total knee replacement, bilateral ?Z96.653 - Presence of artificial knee joint, bilateral (ICD-10) S/P oophorectomy History of aortic valve replacement with bioprosthetic valve ?Z95.3 - Presence of xenogenic heart valve (ICD-10) Social History Narrative: Until last month she was living independently at home. Then hospitalized with weakness and multiple other medical problems. Now at [address] [place] [address]. She is present here with her son, Kenneth, and [id number]. Kenneth is healthcare power of switchboard operator. Code status is DNR. Former smoker having quit about 40 years ago. Previously drank alcohol regularly but not currently drinking What is your current living situation?: I presently have a place to live Problems where you live: no known problems Problems where you live details: N/A In the past 12 months, utilities in danger of being shut off: no In past 12 months, lack of transportation kept you from medical appts, meetings, work, or getting things needed for daily living: no In the past 12 mos, have been you worried that your food would run out before you had money to buy more?: never true In the past 12 mos, the food you bought just didn't last and you didn't have money to buy more?: never true Highest level of school completed/degree received: high school graduate Smoking Status: Former smoker How often do you have a drink containing alcohol: never How often do you have six or more drinks on one occasion: Never AUDIT-C Alcohol total score: 0 Non-prescribed substance use: denies use Caffeine: No How often does anyone, including family, friends and others, physically hurt you: never How often does anyone, including family, friends and others, insult or talk down to you: never How often does anyone, including family, friends and others, threaten you with harm: never How often does anyone, including family, friends and others, scream or curse at you: never service: No Meds Home Medications and Allergies Home Medications ?Medication ?Instructions ?Recorded ?Confirmed ?Type acetaminophen 500 mg tablet 1,000 mg PO TID 12/24/24 05/01/25 History allopurinol 100 mg tablet 100 mg PO DAILY 12/24/24 05/01/25 History aspirin 81 mg tablet,delayed 81 mg PO DAILY 12/24/24 05/01/25 History release atorvastatin 40 mg tablet 40 mg PO HS 12/24/24 05/01/25 History calcium 600 mg (as 1 tab PO DAILY 12/24/24 05/01/25 History carbonate)-vitamin D3 10 mcg (400 unit) tablet carvedilol 12.5 mg tablet 12.5 mg PO BID 12/24/24 05/01/25 History enalapril maleate 20 mg tablet 20 mg PO BID 12/24/24 05/01/25 History fluticasone fur. 200 mcg-umeclid 1 ea inhalation DAILY 12/24/24 05/01/25 History 62.5 mcg-vilant 25 mcg inhalat.powder (Trelegy Ellipta) potassium chloride 20 mEq 20 meq PO BID 12/24/24 05/01/25 History tablet,extended release torsemide 20 mg tablet 40 mg PO BID 12/24/24 05/01/25 History vitamins A,C,A-tcwc-lonpcc 2,148 1 tab PO DAILY 12/25/24 05/01/25 History mcg-113 mg-45 mg-17.4 mg tablet (Eye Multivitamin) warfarin 2 mg tablet 2 mg PO MOFR@17 12/25/24 05/01/25 History albuterol sulfate 2.5 mg/3 mL 2.5 mg NEB TID wheezing 05/01/25 05/01/25 History (0.083 %) solution for nebulization guaifenesin 600 mg tablet, 600 mg PO BID 05/01/25 05/01/25 History extended release 12 hr (Mucinex) hydromorphone 2 mg tablet 2 mg PO Q6H PRN 05/01/25 05/01/25 History melatonin 3 mg tablet 3 mg PO HS 05/01/25 05/01/25 History warfarin 2.5 mg tablet 2.5 mg PO SUTUWETHSA@17 05/01/25 05/01/25 History Allergies Allergy/AdvReac Type Severity Reaction Status Date / Time oxycodone Allergy Unknown Verified 01/27/25 17:39 Exam Narrative: Exam Narrative: General: Elderly female with confusion, calling out intermittently with pain HEENT: NCAT Resp: Breathing appears comfortable on 2L, breath sounds diminished on anterior auscultation CV: RRR, heart tones distant Abd: Obese, quiet Extremities: Chronic venous stasis changes, 2+ pitting edema bilaterally Neuro: Unable to follow commands, moving all extremities, keeps eyes closed. Face is symmetric. Const: Vital Signs, click to edit/add: Vital Signs - 24 hr 05/01/25 10:28 05/01/25 10:29 05/01/25 10:30 Temperature 98.6 F Pulse Rate 66 62 Pulse Rate [Pulse Oximeter] 61 Respiratory Rate 30 H 38 H 14 Blood Pressure Blood Pressure [Le ft Upper Arm] 122/105 H Pulse Oximetry 91 92 92 Oxygen Delivery Me thod Nasal Cannula Oxygen Flow Rate 3 05/01/25 10:34 05/01/25 10:45 05/01/25 10:51 Temperature Pulse Rate 62 63 Pulse Rate [Pulse Oximeter] Respiratory Rate 40 H 11 L 0 L Blood Pressure 85/64 L Blood Pressure [Le ft Upper Arm] Pulse Oximetry 93 92 Oxygen Delivery Me thod Oxygen Flow Rate 05/01/25 10:52 05/01/25 10:58 05/01/25 11:00 Temperature Pulse Rate 72 63 64 Pulse Rate [Pulse Oximeter] Respiratory Rate 12 45 H 59 H Blood Pressure 182/81 H Blood Pressure [Le ft Upper Arm] Pulse Oximetry 92 96 93 Oxygen Delivery Me thod Oxygen Flow Rate 05/01/25 11:03 05/01/25 11:15 05/01/25 11:30 Temperature Pulse Rate 60 69 65 Pulse Rate [Pulse Oximeter] Respiratory Rate 11 L 29 H 34 H Blood Pressure 181/83 H Blood Pressure [Le ft Upper Arm] Pulse Oximetry 95 93 82 L Oxygen Delivery Me thod Oxygen Flow Rate 05/01/25 11:33 05/01/25 11:45 05/01/25 11:46 Temperature Pulse Rate 61 60 Pulse Rate [Pulse Oximeter] Respiratory Rate 29 H 9 L 8 L Blood Pressure 135/58 L 94/58 L Blood Pressure [Le ft Upper Arm] Pulse Oximetry 79 L 92 Oxygen Delivery Me thod Nasal Cannula Oxygen Flow Rate 3 05/01/25 11:55 05/01/25 12:00 05/01/25 12:02 Temperature Pulse Rate 60 60 Pulse Rate [Pulse Oximeter] Respiratory Rate 19 11 L Blood Pressure 81/47 L Blood Pressure [Le ft Upper Arm] Pulse Oximetry 92 91 91 Oxygen Delivery Me thod Nasal Cannula Nasal Cannula Oxygen Flow Rate 2 2 05/01/25 12:28 05/01/25 12:32 05/01/25 12:33 Temperature Pulse Rate 61 60 60 Pulse Rate [Pulse Oximeter] Respiratory Rate 25 H 20 20 Blood Pressure 95/47 L 101/42 L Blood Pressure [Le ft Upper Arm] Pulse Oximetry 91 90 90 Oxygen Delivery Me thod Nasal Cannula Nasal Cannula Oxygen Flow Rate 2 2 05/01/25 12:45 05/01/25 12:46 05/01/25 13:00 Temperature Pulse Rate 59 L 60 60 Pulse Rate [Pulse Oximeter] Respiratory Rate 19 18 24 Blood Pressure 93/50 L Blood Pressure [Le ft Upper Arm] Pulse Oximetry 89 89 91 Oxygen Delivery Me thod Oxygen Flow Rate 05/01/25 13:02 05/01/25 13:03 05/01/25 13:15 Temperature 98.1 F Pulse Rate 60 59 L 60 Pulse Rate [Pulse Oximeter] Respiratory Rate 20 19 19 Blood Pressure 106/48 L Blood Pressure [Le ft Upper Arm] Pulse Oximetry 91 90 92 Oxygen Delivery Me thod Nasal Cannula Oxygen Flow Rate 2 05/01/25 13:17 05/01/25 13:18 05/01/25 13:30 Temperature 98.1 F Pulse Rate 59 L 60 62 Pulse Rate [Pulse Oximeter] Respiratory Rate 18 19 17 Blood Pressure 103/65 Blood Pressure [Le ft Upper Arm] Pulse Oximetry 91 91 91 Oxygen Delivery Me thod Oxygen Flow Rate 05/01/25 13:31 05/01/25 13:45 05/01/25 13:46 Temperature Pulse Rate 61 60 60 Pulse Rate [Pulse Oximeter] Respiratory Rate 17 19 17 Blood Pressure 109/50 L 103/50 L Blood Pressure [Le ft Upper Arm] Pulse Oximetry 92 91 92 Oxygen Delivery Me thod Oxygen Flow Rate 05/01/25 14:00 05/01/25 14:02 05/01/25 14:36 Temperature 98.1 F Pulse Rate 60 59 L Pulse Rate [Pulse Oximeter] Respiratory Rate 18 23 24 Blood Pressure Blood Pressure [Le ft Upper Arm] Pulse Oximetry 90 92 90 Oxygen Delivery Me thod Nasal Cannula Oxygen Flow Rate 2 05/01/25 14:36 Temperature Pulse Rate Pulse Rate [Pulse Oximeter] Respiratory Rate 24 Blood Pressure Blood Pressure [Le ft Upper Arm] Pulse Oximetry 90 Oxygen Delivery Me thod Nasal Cannula Oxygen Flow Rate 2 Hospitalist - H&P: Result Labs Labs: Short CBC 05/01/25 Range/Units 10:42 WBC 12.00 H (4.50-11.00) K/uL Hgb 14.3 (12.0-16.0) gm/dL Hct 45.2 (33.0-51.0) % Plt Count 189 (140-440) K/uL BMP 05/01/25 10:42 Sodium 142 Potassium 4.2 Chloride 105 Carbon Dioxide 26 BUN 24 Creatinine 1.3 Glucose 97 Calcium 9.4 Cardiac Enzymes 05/01/25 Range/Units 10:42 Troponin I 0.07 H* (0.01-0.04) ng/mL Urine 05/01/25 Range/Units 11:30 Urine Color Dark yellow (Yellow) Urine Appearance Slightly Cloudy A (Clear) Urine pH 5.5 (5.0-8.5) Ur Specific [place] 1.020 (1.000-1.030) Urine Protein 3+ A (Negative) Urine Glucose (UA) Negative (Negative) ECG ECG interpretation date: 05/01/25 Prior ECG tracings: available for review Interpretation: Ventricularly paced rhythm at 60 bpm, prolonged QT at 506 ms, diffuse inverted T waves in leads I-III, aVF, V3-V6 and no acute appearing ST-segment changes. Inverted T waves are new. Imaging CT Chest/Ab/Pelvis: Attestation: I have reviewed the pertinent imaging results. Radiologist's impression: Ordering Physician: Jacoby Baron M.D. Date of Service: 05/01/25 Procedure(s): CT chest abdomen pelv wo con Accession Number(s): [id number] cc: Johnathan Lopez M.D.; Jacoby Baron M.D.~ For Patients: As a result of the Cures Act, medical imaging exams and procedure reports are released immediately into your electronic medical record. You may view this report before your referring provider. If you have questions, please contact your health care provider. Indication: Altered mental status, mild hypoxia and abdominal pain Technique: Volumetric multidetector CT images of the chest, abdomen, and pelvis were obtained without the administration of intravenous contrast. Comparison: CT chest with contrast December 24, 2024 FINDINGS: CHEST The thoracic inlet is unremarkable. The thyroid gland is within normal limits. The thoracic aorta is nonaneurysmal with moderate scattered atherosclerotic calcification. Aortic valve prosthesis is appreciated. There is a dual-chamber pacer again seen. Minimal central bronchial thickening with persistent mild narrowing of the AP trachea and proximal bronchial diameter likely representing persistent mild tracheobronchomalacia. Redemonstration of a spiculated mass within the outer lower left breast measuring up to 4.6 x 3.5 centimeters. Re-demonstration of extensive pathologic lymph nodes within the left chest wall and axilla with somewhat increasing upper thoracic and subpectoral lymph nodes from previous exam likely representing progression of disease and metastatic changes with lymph node now measuring up to 1.2 centimeters, previously measuring 6.6 millimeters. Minimal paraseptal emphysematous changes of the upper lobes are appreciated with dependent basilar atelectasis and interstitial prominence which may represent mild pulmonary vascular congestion. Stable pleural-based pulmonary nodule within the left lower lobe measuring 4.6 millimeters. The thoracic osseus structures are intact without fracture, lytic, or blastic lesion. The thoracic vertebral body heights are grossly stable from comparison with moderate to severe degenerative disc height loss and marginal osteophyte formation. No obvious lytic or blastic changes are appreciated. ABDOMEN AND PELVIS The liver is normal in attenuation and size. The spleen is normal in attenuation and size. Minimal dependent calculi within the gallbladder lumen. There is no intrahepatic or common ductal dilatation. The stomach and duodenum are grossly unremarkable. The pancreas is normal in size without significant atrophy or inflammatory changes. The adrenal glands are unremarkable without evidence of adenoma. Hypertrophy of the right kidney with hypoplasia/atrophy of the left kidney and collecting system. Mild prominence of the right collecting system without obvious obstructive uropathy. There is moderate stool seen throughout the proximal colon with moderate to severe rectosigmoid diverticulosis with questionable mild thickening and pericolonic inflammation of the mid rectosigmoid colon. The appendix is unremarkable without significant inflammatory change. The abdominal aorta is mildly aneurysmal at the level of the proximal left common iliac artery measuring up to 2.4 by 2.6 centimeters. Otherwise, the proximal infrarenal abdominal aorta is nonaneurysmal.. Decompressed appearance of the bladder with a Johnson catheter in satisfactory position. There is no pathologically enlarged epigastric, mesenteric, retroperitoneal, or pelvic sidewall lymph node. The anterior abdominal wall is grossly intact without significant hernias. There is no free air or free fluid. Moderate to severe degenerative changes of the bilateral hips and sacroiliac joints. The lumbar vertebral body heights are grossly maintained with moderate to severe degenerative disc disease. Minimal endplate subchondral cystic changes are appreciated. No significant spondylolisthesis. No obvious lytic or blastic lesion. Impression: 1. Mild tracheobronchomalacia with narrowing of the AP diameter of the trachea and proximal bronchi with diffuse interstitial prominence likely representing mild pulmonary vascular congestion and basilar atelectasis. 2. 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 No other obvious metastatic changes are appreciated. 3. Severe distal rectosigmoid diverticulosis with questionable focal thickening and pericolonic inflammation of the sigmoid colon which may represent mild diverticulitis. Correlate with history of clinical symptoms.
[2025-05-01] MEDS: FUROSEMIDE 10 MG/ML inj 40 MG IVP (15:51)
--- NOTE | 2025-05-01 18:05 | PC.NURSE ---
Pt family made the decision to change patient's code status to comfort care. Pt not alert and only responds to pain. Turning & reposition every 2 hours. Giving pain medication PRN. Left shoulder very sensitive to being moved. Family at bedside.
[2025-05-01] MEDS: SODIUM CHLORIDE 0.9 % (FLUSH) 10 ML SYRINGE 5 ML IVF (20:30)
[2025-05-02] MEDS: SODIUM CHLORIDE 0.9 % (FLUSH) 10 ML SYRINGE 5 ML IVF ×2 (04:58→12:36)
--- NOTE | 2025-05-02 05:03 | PC.NURSE ---
Pt is oriented to self only. At times pt is alert and will answer some questions appropriately and other times she will wake and have mumbled speech.Pt moans with turning and repositioning and sometimes in sleep, pt's pain is managed with PRN medications. Pt was turned and repositioned throughout night. Pt's ray is patent and draining minimal output.
--- NOTE | 2025-05-02 10:56 | P.DS_ITS ---
DS: Providers Provider Date Seen: 05/02/25 Date of admission: 05/01/25 14:11 Primary care physician: Johnathan Lopez MD Admitting Clinician: Beverly Munoz MD Consults: 05/02/25 08:06 Consult to [facility] Wrapper [CONS] Routine Comment: Reason for Consult:: Hospice Needed Attending Physician on discharge: JESSICA Parada, CORNELIUSC [facility] Hospitalist Date of Discharge: 05/02/25 DS: Diagnosis Discharge Diagnosis (1) Acute metabolic encephalopathy: Status: Acute Problem details: Very likely secondary to sepsis from urinary tract infection. Prolonged QT noted. -Schedule low dose gabapentin if patient able to take PO -Zyprexa available IV, use sparingly given long QT -Avoid anticholinergics, benzodiazpines and opioids as much as possible, but will need to treat pain (2) Urinary tract infection: Status: Acute Problem details: Presented with sepsis. UA consistent with infection. Notably had UC last week showing no growth on culture 04/30/25. UA now with many bacteria, pyuria, hematuria. -Received one dose of IV zosyn. -Transitioned to comfort care, so no further antibiotic. (3) Sepsis: Status: Acute Problem details: Meets sepsis criteria with hypotension, acute respiratory failure, acute encephalopathy, leukocytosis, elevated lactate, COLLIN, elevated troponin. Source appears to be UTI (4) COPD (chronic obstructive pulmonary disease): Status: Acute Problem details: - prn PRN albuterol, not on daily COPD LABA/LAMA medications (5) Cognitive impairment: Status: Acute Problem details: - short term memory loss (6) Decompensated heart failure with preserved ejection fraction (HFpEF): Status: Acute Problem details: Patient with pitting edema to b/l LE, pulmonary edema on CT, proBNP elevation at 7350. Now transitioned to comfort care. On torsemide 40mg BID at home. Currently severely oliguric -Give 40mg lasix now. -Continue IV lasix for comfort (7) Breast cancer: Status: Acute Problem details: - Left breast mass diagnosed as breast cancer in October 2024. Patient has declined further evaluation or treatment. 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 Transitioning to comfort measures, no further monitoring (13) Bacteremia: Status: Acute Problem details: E coli DS: Summary Hospital Course Hospital Course: Course of care and details as noted above. Discussed plan of care with family in room at patient's bedside this morning. Recent finding of breast mass with concern for metastases, worsening on CT done yesterday, without plan for intervention per family report. Now with E coli bacteremia and cystitis with multi organ failure. Patient is discharged back to [facility] on comfort cares only. Hospice to evaluate. POLST will need to be completed/updated. Status at Discharge Functional status at discharge: bed bound Overall status at discharge: patient is not back to baseline Time Spent with Patient Time attestation: Total time spent providing and/or coordinating discharge services: Time spent: Greater than 30 minutes Exam Narrative: Exam Narrative: PHYSICAL EXAM General: Sleeps throughout most of day, awakens briefly, not oriented Cardiovascular: RRR Pulmonary: No dyspnea Skin: Dusky. Warm, dry. Const: Vital Signs, click to edit/add: Vital Signs - 24 hr 05/01/25 10:58 05/01/25 11:00 05/01/25 11:03 Temperature Pulse Rate 63 64 60 Respiratory Rate 45 H 59 H 11 L Blood Pressure 182/81 H 181/83 H Pulse Oximetry 96 93 95 Oxygen Delivery Me thod Oxygen Flow Rate 05/01/25 11:15 05/01/25 11:30 05/01/25 11:33 Temperature Pulse Rate 69 65 61 Respiratory Rate 29 H 34 H 29 H Blood Pressure 135/58 L Pulse Oximetry 93 82 L 79 L Oxygen Delivery Me thod Oxygen Flow Rate 05/01/25 11:45 05/01/25 11:46 05/01/25 11:55 Temperature Pulse Rate 60 Respiratory Rate 9 L 8 L Blood Pressure 94/58 L Pulse Oximetry 92 92 Oxygen Delivery Me thod Nasal Cannula Oxygen Flow Rate 3 05/01/25 12:00 05/01/25 12:02 05/01/25 12:28 Temperature Pulse Rate 60 60 61 Respiratory Rate 19 11 L 25 H Blood Pressure 81/47 L 95/47 L Pulse Oximetry 91 91 91 Oxygen Delivery Me thod Nasal Cannula Nasal Cannula Nasal Cannula Oxygen Flow Rate 2 2 2 05/01/25 12:32 05/01/25 12:33 05/01/25 12:45 Temperature Pulse Rate 60 60 59 L Respiratory Rate 20 20 19 Blood Pressure 101/42 L Pulse Oximetry 90 90 89 Oxygen Delivery Me thod Nasal Cannula Oxygen Flow Rate 2 05/01/25 12:46 05/01/25 13:00 05/01/25 13:02 Temperature 98.1 F Pulse Rate 60 60 60 Respiratory Rate 18 24 20 Blood Pressure 93/50 L 106/48 L Pulse Oximetry 89 91 91 Oxygen Delivery Me thod Nasal Cannula Oxygen Flow Rate 2 05/01/25 13:03 05/01/25 13:15 05/01/25 13:17 Temperature 98.1 F Pulse Rate 59 L 60 59 L Respiratory Rate 19 19 18 Blood Pressure 103/65 Pulse Oximetry 90 92 91 Oxygen Delivery Me thod Oxygen Flow Rate 05/01/25 13:18 05/01/25 13:30 05/01/25 13:31 Temperature Pulse Rate 60 62 61 Respiratory Rate 19 17 17 Blood Pressure 109/50 L Pulse Oximetry 91 91 92 Oxygen Delivery Me thod Oxygen Flow Rate 05/01/25 13:45 05/01/25 13:46 05/01/25 14:00 Temperature Pulse Rate 60 60 60 Respiratory Rate 19 17 18 Blood Pressure 103/50 L Pulse Oximetry 91 92 90 Oxygen Delivery Me thod Oxygen Flow Rate 05/01/25 14:02 05/01/25 14:36 05/01/25 14:36 Temperature 98.1 F Pulse Rate 59 L Respiratory Rate 23 24 24 Blood Pressure Pulse Oximetry 92 90 90 Oxygen Delivery Me thod Nasal Cannula Nasal Cannula Oxygen Flow Rate 2 2 05/01/25 15:00 05/01/25 23:25 Temperature Pulse Rate Respiratory Rate 24 12 Blood Pressure Pulse Oximetry Oxygen Delivery Me thod Oxygen Flow Rate DS: Data Data Completed and Pending Completed studies during hospitalization: Procedures Introduction of Other Gas into Respiratory Tract, Via Natural or Artificial Opening (12/24/24) Labs on day of discharge: Labs from last 24 hours 05/01/25 05/01/25 05/01/25 11:30 11:05 11:01 WBC RBC Hgb Hct MCV MCH MCHC RDW Coeff of Jarrett Plt Count Neut % (Auto) Lymph % (Auto) [place] % (Auto) Eos % (Auto) Baso % (Auto) Neut # (Auto) Lymph # (Auto) [place] # (Auto) Eos # (Auto) Baso # (Auto) Abs Immat Gran (auto) Imm/Tot Granulo (auto) INR VBG pH VBG pCO2 VBG pO2 VBG HCO3 Sodium Potassium Chloride Carbon Dioxide Anion Gap BUN Creatinine Estimated Creat Clear Estimated GFR Glucose Calcium Troponin I C-Reactive Protein NT-Pro-B Natriuret Pep Urine Color Dark yellow Urine Appearance Slightly Cloudy A Urine pH 5.5 Ur Specific [place] 1.020 Urine Protein 3+ A Urine Glucose (UA) Negative Urine Ketones Negative Urine Blood 3+ A Urine Nitrite Negative Urine Bilirubin 1+ A Urine Urobilinogen 0.2 Ur Leukocyte Esterase 3+ A Urine RBC 10-25 A Urine WBC >100 A Urine WBC Clumps Few A Ur Squamous Epith Cells Few Urine Bacteria Many A Lab Acknowledgement Test Added Test Added 05/01/25 10:42 WBC 12.00 H RBC 4.71 Hgb 14.3 Hct 45.2 MCV 96 MCH 30 MCHC 32 RDW Coeff of Jarrett 17.2 H Plt Count 189 Neut % (Auto) 94.9 H Lymph % (Auto) 3.2 L [place] % (Auto) 1.2 Eos % (Auto) 0.1 Baso % (Auto) 0.3 Neut # (Auto) 11.40 H Lymph # (Auto) 0.40 L [place] # (Auto) 0.10 Eos # (Auto) 0.00 Baso # (Auto) 0.00 Abs Immat Gran (auto) 0.00 Imm/Tot Granulo (auto) 0.3 INR 2.12 H VBG pH 7.396 VBG pCO2 43 VBG pO2 31.3 VBG HCO3 27 Sodium 142 Potassium 4.2 Chloride 105 Carbon Dioxide 26 Anion Gap 11 BUN 24 Creatinine 1.3 Estimated Creat Clear 29.08 Estimated GFR 40 Glucose 97 Calcium 9.4 Troponin I 0.07 H* C-Reactive Protein 1.8 H NT-Pro-B Natriuret Pep 7350 H Urine Color Urine Appearance Urine pH Ur Specific [place] Urine Protein Urine Glucose (UA) Urine Ketones Urine Blood Urine Nitrite Urine Bilirubin Urine Urobilinogen Ur Leukocyte Esterase Urine RBC Urine WBC Urine WBC Clumps Ur Squamous Epith Cells Urine Bacteria Lab Acknowledgement Preliminary micro results at discharge 05/01/25 11:30 Urine Culture - Preliminary Urine Catheterized Gram negative rita 05/01/25 10:42 Blood Culture - Preliminary Blood Gram negative rita Discharge Plan Discharge Disposition: Xfer SNF Discharge Location: [facility] [place] Date of Admission: 05/01/25 14:11 Attending Provider on Discharge: Fatou Martínez Primary Care Provider: Johnathan Lopez Condition: Guarded Anticipated Discharge Date/Time: 05/02/25 10:52 Discharge Medications: Continued acetaminophen 500 mg tablet 1,000 mg PO TID hydromorphone 2 mg tablet 2 mg PO Q6H PRN melatonin 3 mg tablet 3 mg PO HS Discontinued allopurinol 100 mg tablet 100 mg PO DAILY atorvastatin 40 mg tablet 40 mg PO HS carvedilol 12.5 mg tablet 12.5 mg PO BID torsemide 20 mg tablet 40 mg PO BID enalapril maleate 20 mg tablet 20 mg PO BID aspirin 81 mg tablet,delayed release (DR/EC) 81 mg PO DAILY calcium carbonate-vitamin D3 600 mg-10 mcg (400 unit) tablet 1 tab PO DAILY potassium chloride 20 mEq tablet extended release 20 meq PO BID Trelegy Ellipta 200-62.5-25 mcg blister with device 1 ea INHALATION DAILY warfarin 2 mg tablet 2 mg PO MOFR@17 Eye Multivitamin 2,148 mcg-113 mg-45 mg-17.4mg tablet 1 tab PO DAILY warfarin 2.5 mg tablet 2.5 mg PO SUTUWETHSA@17 guaifenesin [Mucinex] 600 mg tablet extended release 12hr 600 mg PO BID albuterol sulfate 2.5 mg /3 mL (0.083 %) Solution For Nebulization 2.5 mg NEB TID Patient Comments: AND EVERY 4 HOURS PRN Discharge Orders: Discharge Order (Routine); Ordered 05/02/25 Ordered By: Fatou Martínez Additional Instructions: RETURN TO [facility] ON COMFORT CARES. HOSPICE TO EVALUATE. POLST TO BE ADDRESSED Activity Level: Activity as Tolerated Discharge Diet: Regular Diet Detail: TOLERATED FOR COMFORT Follow Up Appointments: Johnathan Lopez MD [Primary Care Provider, Family Practice] Forms: [facility] Info Instructions Admit to: SNF Discharge Potential: Poor Can use facility standing orders?: Yes Code Status: DNR/DNI Rehab Potential: Poor Oxygen: No Urinary Catheter: Yes Hospice Evaluate and Admit: HOSPICE TO EVALUATE; RETURNING COMFORT CARES ONLY Orders are good >30 days: No Signature: JESSICA PARADA, PA-C [facility]
--- NOTE | 2025-05-02 11:09 | PC.SOCIAL ---
Addendum entered by RANDA Stanley 05/02/25 14:19: Multiple emails and calls with [facility] staff today. [facility] will accept pt back today as soon as she can get there. EMS has been requested. Discharge orders and PAS have been secure emailed to [facility]. Family has not decided if they want hospice care and [facility] will facilitate an informational meeting with hospice upon her return. Nurse to nurse has been completed. Family is aware and agrees with this plan. Original Note: Discharge planning:[facility] stated she wants to clarify with family if they really refused a bed hold. Dionne states the bed is still available and they could accept pt back if family wants the bed hold. Spoke with dtr-in-law Fatou, who confirmed family wants pt to return to [facility] and regrets she did not hold the bed. Family would like pt to return to [facility] today by EMS and is aware and agrees to pay privately for EMS transportation. Reached out to [facility] to confirm family wants pt to return today. Received email back from manager social responsibilityDionne, stating that because family declined the bed hold last night, pt has been discharged and would need to be evaluated as a new pt for admission. Faxed requested packet of information and awaiting decision from [facility] about admissiontoday. [employer] to follow up as needed.
--- NOTE | 2025-05-02 16:01 | PC.NURSE ---
Pt. transferred to [facility]. [id number] report given to Nurse Tiarra at [facility].
== END 2025-05-02 15:59 ==
LOC: ED 13:39 → MEDSURG 14:12
PROVIDERS: Admitting Provider Family Medicine; Emergency Provider Family Medicine; PCP Family Medicine; Visit Provider Family Medicine
DX: A41.9 Sepsis, unspecified organism (principal); N39.0 Urinary tract infection, site not specified; G93.41 Metabolic encephalopathy; R94.31 Abnormal electrocardiogram [ECG] [EKG]; J96.00 Acute respiratory failure, unspecified whether with hypoxia or hypercapnia; J44.9 Chronic obstructive pulmonary disease, unspecified; G47.33 Obstructive sleep apnea (adult) (pediatric); Z99.89 Dependence on other enabling machines and devices; G31.84 Mild cognitive impairment of uncertain or unknown etiology; I13.0 Hypertensive heart and chronic kidney disease with heart failure and stage 1 through stage 4 chronic kidney disease, or unspecified chronic kidney disease; I50.33 Acute on chronic diastolic (congestive) heart failure; N18.31 Chronic kidney disease, stage 3a; I48.0 Paroxysmal atrial fibrillation; Z79.01 Long term (current) use of anticoagulants; Z79.82 Long term (current) use of aspirin; Z95.0 Presence of cardiac pacemaker; C50.512 Malignant neoplasm of lower-outer quadrant of left female breast; C77.3 Secondary and unspecified malignant neoplasm of axilla and upper limb lymph nodes; C77.1 Secondary and unspecified malignant neoplasm of intrathoracic lymph nodes; Z95.3 Presence of xenogenic heart valve; E66.9 Obesity, unspecified; Z68.41 Body mass index [BMI] 40.0-44.9, adult
CPT/HCPCS: 36415; 70450; 71250; 74176; 80048; 81001; 82565; 82803; 83605; 83880; 84484; 85025; 85610; 86140; 87040; 87086; 87800; 93005; 94761; 96361; 96365; 96375; 96376; 99284; 99291; G0378; J1171; J1938; J2270; J2405; J2543; J7030

== ENCOUNTER 2025-05-02 15:47 | Outpatient (CLI) | payer MEDICARE, BC, SELFPAY | END 2025-05-02 15:48 | disposition home or self-care (01) | LOC: AMB 05-06 10:45 | PROVIDERS: PCP Family Medicine; Visit Provider Family Medicine | DX: G93.41 Metabolic encephalopathy (principal); N39.0 Urinary tract infection, site not specified; R53.1 Weakness; R52 Pain, unspecified | CPT/HCPCS: A0425; A0428 ==